=== PATIENT | female | born 1965 | race Caucasian/White ===

== ENCOUNTER 2017-05-19 01:48 | Inpatient (IN) ==
[2017-05-19] MEDS ORDERED: AMPICILLIN/SULBACTAM 3,000 MG in SODIUM CHLORIDE 0.9% 100 ML IV STA (02:07)
[2017-05-19] MEDS ORDERED: SODIUM CHLORIDE 0.9% 500 ML IV STA (02:07)
[2017-05-19] MEDS ORDERED: IBUPROFEN 600 MG TABLET PO STA (02:07)
--- NOTE | 2017-05-19 02:14 | Emergency Department Note ---
Claire Bella Mantricia, am scribing for, and in the presence of, Kip Auguste MD 02:12. Molina Bella Robert M, MD, personally performed the services described in this documentation, ascribed by Es Rangel in my presence, and it is both accurate and complete . Arrival - Arrival Chief Complaint: Syncope ED Nursing Triage Note: Patient stated that the fever started yesterday when she was here at [place] getting her blood drawn. Patient stated that she was weak and it never got better and when she stood up to come to the ER, she had a syncopy episode. Mode of Arrival: Stretcher Limitations: No Limitations Source: Patient, Significant other Time Seen by Provider: 05/19/17 01:58 - History of Present Illness HPI Narrative: Pt is a 52 y/o white female arriving to ED with c/o fever and syncopal episode that happened and hour NEWCOMER HOSTESS. 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 Pt was hospitalized a while ago and states that her white blood count was low when she was discharged. She reports that she had blood work drawn today here and noticed her fever after that. Pt states that her fever today was 99.4; an hour NEWCOMER HOSTESS pt states that her temperature was 100.5 so they decided to come to ED. While dressing herself and fixing her hair, pt had a 3-5 syncopal episode. reports that pt seemed like she was about to seize during syncope but never did. Pt's oncologist is Dr. Aleman. She reports that she had an episode similar to this 9 years ago. No other complaints were reported to ED. Onset (ago): day(s) Consistency: constant Date of Last Menstrual Period: PM Allergies/Adverse Reactions: Allergies Allergy/AdvReac Type Severity Reaction Status Date / Time No Known Allergies Allergy Verified 05/18/17 09:24 Review of System - Review of System 12 point system: reviewed and no additional remarkable complaints except as stated - Review of System Constitutional: Present: fever. Absent: chills, diaphoresis Cardiovascular: Present: syncope. Absent: chest pain, palpitations Gastrointestinal: Absent: abdominal pain, nausea, vomiting, diarrhea Genitourinary female: Absent: abnormal menses Medical,Surgical,& Family Hx - Medical History Neurology: No history of: Seizures Hematology: History of: Anemia Other: History of: Cancer - Surgical History Cardiac Surgeries: Patient Denies: Cardiac Catheterization - Social History Smoking Status: Never smoker Exam Vital Signs: Vital Signs Temperature 103.2 F H 05/19/17 01:55 Pulse Rate 123 H 05/19/17 01:55 Respiratory Rate 18 05/19/17 01:55 Blood Pressure 104/63 05/19/17 01:55 O2 Sat by Pulse Oximetry 100 05/19/17 01:55 - General General appearance: alert, in no apparent distress - Head Head exam: Present: atraumatic, normocephalic, normal inspection - Eye Eye exam: Present: normal appearance, PERRL, EOMI - ENT ENT exam: Present: normal exam, normal oropharynx, mucous membranes moist, TM's normal bilaterally, normal external ear exam - Neck Neck exam: Present: normal inspection, full ROM, trachea midline. Absent: tenderness - Chest Chest inspection: Present: normal inspection, symmetric chest wall rise. Absent : tenderness - Respiratory Respiratory exam: Present: normal lung sounds bilaterally - Cardiovascular Cardiovascular exam: Present: regular rate, normal rhythm, normal heart sounds - Abdominal Exam Abdominal exam: Present: soft, normal bowel sounds. Absent: distention, tenderness, guarding, rebound - Extremities Exam Extremities exam: Present: normal inspection, full ROM, normal capillary refill. Absent: tenderness, pedal edema - Back Exam Back exam: Present: normal inspection, full ROM. Absent: tenderness - Neurological Exam Neurological exam: Present: alert, oriented X3, CN II-XII intact, normal gait, reflexes normal - Psychiatric Psychiatric exam: Present: normal affect, normal mood - Skin Skin exam: Present: warm, dry, intact, normal color Course - Reevaluation(s) Reevaluation #1: I have planned to put patient on [address] Bass request, however the nursing supervisor waterworks informs me that she cannot go to 4 E. because of her hypotension and tachycardia which has been stable her entire stay. They can disposition the patient as they see fit. They are going to place her in the ICU because 4 weeks will accept the patient as she presents now despite stability. Time: 04:02 - Consultations Consultation #1: Dr. Bishnu Bass early intervention specialist and will admit the patient to Dr. Aleman. He requests irradiated blood and platelets. Time: 03:24 Results - Labs CBC & BMP: 05/19/17 02:05 05/19/17 02:05 Lab Results: I have reviewed the patients labs Labs: Lab Results WBC 0.1 T/CUMM (4-12) L* 05/19/17 02:05 RBC 1.49 MC/CUMM (3.8-5.5) L D 05/19/17 02:05 Hgb 4.7 GM/DL (12.0-16.0) L* D 05/19/17 02:05 Hct 14.1 VOL% (35.7-47.0) L* D 05/19/17 02:05 MCV 94.6 FL (87-102) 05/19/17 02:05 MCH 32 PG (27-34) 05/19/17 02:05 MCHC 33.3 GM/DL (32-36) 05/19/17 02:05 RDW 16.3 % (9.3-17.3) 05/19/17 02:05 Plt Count 10 T/CUMM (130-400) L* D 05/19/17 02:05 MPV 10.8 FL (9.6-12.0) 05/19/17 02:05 Neut % (Auto) 20.0 % (38.7-73.9) L 05/19/17 02:05 Lymph % (Auto) 80.0 % (21.3-54.2) H 05/19/17 02:05 [place] % (Auto) 0.0 % (1.7-12.7) L 05/19/17 02:05 Eos % (Auto) 0.0 % (0.00-10.9) 05/19/17 02:05 Baso % (Auto) 0.0 % (0.0-0.8) 05/19/17 02:05 Neut # (Auto) 0.0 10*3/uL (1.4-7.4) L 05/19/17 02:05 Lymph # (Auto) 0.0 10*3/uL (1.4-4.0) L 05/19/17 02:05 [place] # (Auto) 0.0 10*3/uL (0.11-0.8) L 05/19/17 02:05 Eos # (Auto) 0.0 10*3/uL (0.0-0.87) 05/19/17 02:05 Baso # (Auto) 0.0 10*3/uL (0.0-0.2) 05/19/17 02:05 Immature Gran % 0.0 % 05/19/17 02:05 Nucleated RBC % 0.0 /100WBC 05/19/17 02:05 Immature Gran # 0.00 # 05/19/17 02:05 Nucleated RBCs # 0.00 10*3/uL 05/19/17 02:05 INR 1.1 05/19/17 02:05 PT Patient/Control Mix 11.4 SECS 05/19/17 02:05 Sodium 137 MMOL/L (136-145) 05/19/17 02:05 Potassium 4.0 MMOL/L (3.5-5.1) 05/19/17 02:05 Chloride 101 MMOL/L (98-107) 05/19/17 02:05 Carbon Dioxide 24 MMOL/L (21-32) 05/19/17 02:05 Anion Gap 16.0 MMOL/L (5.0-15.0) H 05/19/17 02:05 BUN 22 MG/DL (7-18) H 05/19/17 02:05 Creatinine 1.80 MG/DL (0.55-1.02) H 05/19/17 02:05 GFR Calculation 31 ML/MIN 05/19/17 02:05 BUN/Creatinine Ratio 12.00 RATIO (6.00-20.00) 05/19/17 02:05 Glucose 130 MG/DL (74-106) H 05/19/17 02:05 Calculated Osmolality 277.8 MOS/KG (273-304) 05/19/17 02:05 Calcium 7.7 MG/DL (8.5-10.1) L 05/19/17 02:05 Total Bilirubin 0.50 MG/DL (0.2-1.0) 05/19/17 02:05 AST 15 U/L (0-37) 05/19/17 02:05 ALT 18 U/L (13-56) 05/19/17 02:05 Alkaline Phosphatase 89 U/L (45-117) 05/19/17 02:05 Lactate Dehydrogenase 160 U/L (84-246) 05/19/17 02:05 Total Protein 5.9 G/DL (6.4-8.3) L 05/19/17 02:05 Albumin 3.1 G/DL (3.4-5.0) L 05/19/17 02:05 Globulin 2.8 G/DL (2.3-3.5) 05/19/17 02:05 Albumin/Globulin Ratio 1.1 RATIO (1.1-2.2) 05/19/17 02:05 Amylase 60 U/L (25-115) 05/19/17 02:05 Lipase 84.0 U/L (73-393) 05/19/17 02:05 Urine Color Yellow (Yellow) 05/19/17 02:48 Urine Appearance Clear (Clear) 05/19/17 02:48 Urine pH 7.0 (4.5-8.0) 05/19/17 02:48 Ur Specific [place] 1.008 (1.001-1.035) 05/19/17 02:48 Urine Protein 30 MG/DL 05/19/17 02:48 Urine Glucose (UA) Negative mg/dL (Negative) 05/19/17 02:48 Urine Ketones Negative mg/dL (Negative) 05/19/17 02:48 Urine Blood Negative mg/dL (Negative) 05/19/17 02:48 Urine Nitrate Negative (Negative) 05/19/17 02:48 Urine Bilirubin Negative mg/dL (Negative) 05/19/17 02:48 Urine Urobilinogen < 2.0 EU/DL (0.2-1.0) H 05/19/17 02:48 Urine Leukocytes Negative Anmol/ul (Negative) 05/19/17 02:48 Urine RBC 3 /HPF (0-4) 05/19/17 02:48 Hyaline Casts 1 /LPF (0-3) 05/19/17 02:48 Ur Culture Indicated? Not indicated 05/19/17 02:48 - Diagnostic Findings Procedure: Chest x-ray: image reviewed by me (No evidence of pneumonia.) Disposition Clinical Impression: Symptomatic anemia, Acute lymphocytic leukemia, Thrombocytopenia, Febrile neutropenia, Vasovagal syncope Case discussed with: patient, patient's family Disposition: Still a Patient Time of Disposition: 03:25
[2017-05-19] MEDS ORDERED: AMPICILLIN/SULBACTAM 3,000 MG VIAL ONE (02:27)
[2017-05-19 02:36] LABS: Mean Corpuscular HGB Conc 33.3 GM/DL (32-36); Mean Corpuscular Hemoglobin 32 PG (27-34); Mean Corpuscular Volume 94.6 FL (87-102); Mean Platelet Volume 10.8 FL (9.6-12.0); Red Blood Count 1.49 MC/CUMM (3.8-5.5); Red Cell Distribution Width 16.3 % (9.3-17.3)
[2017-05-19 02:41] LABS: Hematocrit 14.1 VOL% (35.7-47.0); Hemoglobin 4.7 GM/DL (12.0-16.0); Platelet Count 10 T/CUMM (130-400); White Blood Count 0.1 T/CUMM (4-12)
[2017-05-19] MEDS ORDERED: IBUPROFEN 600 MG TABLET ONE (02:41)
[2017-05-19 02:43] LABS: INR 1.1; PT Patient Result 11.4 SECS
[2017-05-19 03:08] LABS: Albumin 3.1 G/DL (3.4-5.0); Bilirubin,Total 0.5 MG/DL (0.2-1.0); Calcium 7.7 MG/DL (8.5-10.1); Osmolality,Calculated 277.8 MOS/KG (273-304); Total Protein 5.9 G/DL (6.4-8.3)
[2017-05-19 03:09] LABS: Apearance,Urine CLEAR (Clear); Bilirubin,Urine Negative (Negative); Blood, Urine Negative (Negative); Glucose,Urine (UA) Negative (Negative); Hyaline Casts,Urine 1 /LPF (0-3); Ketones,Urine Negative (Negative); Nitrite,Urine Negative (Negative); Protein,Urine 30 MG/DL; RBC,Urine 3 /HPF (0-4); Urine Color Yellow (Yellow); Urine Specific Gravity 1.008 (1.001-1.035); Urine Urobilinogen < 2.0 EU/DL (0.2-1.0)
[2017-05-19] MEDS ORDERED: SODIUM CHLORIDE 0.9% 250 ML IV PRN ×2 (03:17→03:19)
[2017-05-19] MEDS ORDERED: LACTULOSE 20 GM/30 ML UDCUP PO PRN (03:30)
[2017-05-19] MEDS ORDERED: traMADol 50 MG TABLET PO PRN (03:30)
[2017-05-19] MEDS ORDERED: LOPERAMIDE 2 MG CAPSULE PO PRN (03:30)
[2017-05-19] MEDS ORDERED: BENZTROPINE 2 MG/2 ML AMP IV PRN (03:30)
[2017-05-19] MEDS ORDERED: ONDANSETRON 4 MG/2 ML VIAL IV PRN (03:30)
[2017-05-19] MEDS ORDERED: ALUMINUM/MAGNES/SIMETH MAX STR 30 ML UDCUP PO PRN (03:30)
[2017-05-19] MEDS ORDERED: chlorproMAZINE 25 MG TABLET PO PRN (03:30)
[2017-05-19] MEDS ORDERED: ALPRAZolam 0.25 MG TABLET PO PRN (03:30)
[2017-05-19] MEDS ORDERED: chlorproMAZINE INJ 25 MG in SODIUM CHLORIDE 0.9% 100 ML IV PRN (03:30)
[2017-05-19] MEDS ORDERED: MAGNESIUM HYDROXIDE SUSP 30 ML UDCUP PO PRN (03:30)
[2017-05-19] MEDS ORDERED: MYLANTA/LIDO VISC 2:1 300 ML BOTTLE SWISH/SPIT PRN (03:30)
[2017-05-19] MEDS ORDERED: TEMAZEPAM 7.5 MG CAPSULE PO PRN (03:30)
[2017-05-19] MEDS ORDERED: MYLANTA/LIDO VISC 2:1 300 ML BOTTLE SWISH/SWAL PRN (03:30)
[2017-05-19] MEDS ORDERED: chlorproMAZINE INJ 50 MG in SODIUM CHLORIDE 0.9% 100 ML IV PRN (03:30)
[2017-05-19] MEDS ORDERED: diphenhydrAMINE CAP 25 MG CAPSULE PO PRN (03:30)
[2017-05-19] MEDS ORDERED: PROMETHAZINE INJ 25 MG in SODIUM CHLORIDE 0.9% 50 ML IV PRN (03:30)
[2017-05-19] MEDS ORDERED: guaiFENesin 200 MG/10 ML UDCUP PO PRN (03:30)
[2017-05-19 05:20] LABS: Eosinophils 4 % (0-10); Lymphocytes 92 % (20-55)
[2017-05-19 05:22] LABS: Anisocytosis 1+; Microcytosis 1+; Platelet Estimate Decreased; Total Cells Counted 100
[2017-05-19] MEDS: ACETAMINOPHEN 325 MG TABLET PO PRN (06:37)
[2017-05-19] MEDS ORDERED: SODIUM CHLORIDE 0.9% 1,000 ML IV ONE (06:59)
[2017-05-19] MEDS ORDERED: VANCOMYCIN INJ 1,000 MG in SODIUM CHLORIDE 0.9% 250 ML IV ONE (07:02)
--- NOTE | 2017-05-19 07:03 | XRay Report ---
History is fever Comparison 02/20/2011. The cardiac silhouette is at the upper range of normal in size PICC line catheter tip overlies the right atrium No congestive failure or confluent infiltrate is seen Impression: Borderline heart size without acute infiltrate PROCEDURE INTERPRETED AT [facility] DEPARTMENT OF RADIOLOGY Final Report Signed by: Dr. Camelia Terry
--- NOTE | 2017-05-19 07:07 | Oncology History&Physical ---
Assessment and Plan (1) Acute lymphocytic leukemia Status: Acute Assessment and plan: We will give 3 units of irradiated red cells and 1 unit of radiated platelets. I am currently bolusing her fluid at this time while we are waiting for the blood cells. We will then continue IV fluid rehydration. I will give her a dose of vancomycin and place her on IV Levaquin. Will follow up her blood cultures. I will also put her on daily Neupogen since this is a LL and I am not fearful of stimulating myeloblasts. I will notify Dr. Brady of her admission if Dr. Brady is occupational therapy supervisor today for [facility]. Otherwise I will wait till tomorrow when she is back at work. Current Visit: Yes (2) Symptomatic anemia Status: Acute Current Visit: Yes (3) Thrombocytopenia Status: Acute Current Visit: Yes (4) Febrile neutropenia Status: Acute Current Visit: Yes (5) Vasovagal syncope Status: Acute Current Visit: Yes History of Present Illness History of present illness: Ms. 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 She presented to the ER last night with fevers and pancytopenia. She also complains of 2-3 episodes of near syncope. Blood cultures were drawn. She was bolused 1 L of normal saline and given a dose of Unasyn. She overall appears nontoxic but she is hypotensive and tachycardic. She states her blood pressure runs low every time she is in the hospital. She is in the ICU for close observation. I would prefer her on 4 E. but will keep her here for now while she is hypotensive. She has no specific complaints this morning other than headache. She does have fatigue that has been present for the past few days since receiving chemotherapy. She is unsure what type of chemotherapy she received. We are using irradiated blood products. Allergies Allergy/AdvReac Type Severity Reaction Status Date / Time No Known Allergies Allergy Verified 05/18/17 09:24 Medical,Surgical,& Family Hx - Medical History Neurology: No history of: Seizures Hematology: History of: Anemia Other: History of: Cancer - Surgical History Cardiac Surgeries: Patient Denies: Cardiac Catheterization - Social History Smoking Status: Never smoker Frequency of Alcohol Use: None Type of Drug Use: None 12 point system: reviewed and no additional remarkable complaints except as stated - Constitutional Constitutional: Present: chills, fatigue, fever(s), malaise, night sweats, weakness - EENT Eye: Absent: blurry vision, diplopia Nose, mouth and throat: Absent: epistaxis, neck pain, odynophagia, sore throat - Cardiovascular Cardiovascular ROS IM: Absent: chest pain, edema - Respiratory Respiratory: Present: dyspnea. Absent: cough, hemoptysis - Neurological Neurological ROS: Present: headache(s). Absent: syncope - Psychiatric Psychiatric General: Absent: anxiety Exam - Constitutional Vitals: Period Temp Pulse Resp BP Sys/R[place]man Pulse Ox Last 24 Hr 100.1 F-103.2 F 103-128 18-29 89-105/46-63 98-100 General appearance: normal weight, no acute distress - Head Head Exam: Present: normocephalic, atraumatic - Eye Eye Exam: Present: EOMI Pupils: Present: PERRL - Neck Neck exam: Absent: lymphadenopathy, thyromegaly - Respiratory Respiratory exam: Present: CTAB. Absent: wheezes - Cardiovascular Cardiovascular exam: Present: RRR. Absent: JVD, systolic murmur - GI/Abdominal GI/Abdominal exam: Present: soft. Absent: ascites, distended, mass - Neurological Exam Neurological exam: Present: alert, oriented X3 - Psychiatric Psychiatric exam: Present: normal affect, normal mood - Skin Skin exam: Present: warm, dry. Absent: petechiae, rash Results - Labs CBC & BMP: 05/19/17 02:05 05/19/17 02:05 Lab Results: I have reviewed the past 24 hour labs
[2017-05-19] MEDS: SODIUM CHLORIDE 0.9% 1,000 ML IV SCH ×2 (08:00→20:18)
[2017-05-19] MEDS: LEVOFLOXACIN INJ 500 MG in PREMIX 1 EACH IV SCH (09:34)
[2017-05-19] MEDS: FILGRASTIM-SNDZ 300 MCG/0.5 ML SYRINGE SUBCUT SCH (09:35)
[2017-05-19] MEDS: cefTRIAXone 1,000 MG in SODIUM CHLORIDE 0.9% 100 ML IV SCH (16:35)
[2017-05-20 05:47] LABS: Basophils % 11.1 % (0.0-0.8); Hematocrit 25.1 VOL% (35.7-47.0); Hemoglobin 8.7 GM/DL (12.0-16.0); Immature Granulocytes % 33.3 %; Immature Granulocytes Absolute 0.03 #; Lymphocytes % 33.3 % (21.3-54.2); Mean Corpuscular HGB Conc 34.7 GM/DL (32-36); Mean Corpuscular Hemoglobin 31 PG (27-34); Mean Platelet Volume 9.9 FL (9.6-12.0); Monocytes % 11.1 % (1.7-12.7); Neutrophils % 11.2 % (38.7-73.9); Red Blood Count 2.79 MC/CUMM (3.8-5.5); Red Cell Distribution Width 17.5 % (9.3-17.3)
[2017-05-20 05:49] LABS: Platelet Count 25 T/CUMM (130-400); White Blood Count 0.1 T/CUMM (4-12)
[2017-05-20 06:10] LABS: Albumin 2.5 G/DL (3.4-5.0); Bilirubin,Total 0.4 MG/DL (0.2-1.0); Magnesium 1.6 MG/DL (1.8-2.4); Osmolality,Calculated 291.7 MOS/KG (273-304); Potassium 3.5 MMOL/L (3.5-5.1); Total Protein 5.3 G/DL (6.4-8.3)
[2017-05-20 06:13] LABS: Hypochromasia Slight; Lymphocytes 100 % (20-55); Microcytosis 1+; Platelet Estimate Decreased; Total Cells Counted 100
[2017-05-20] MEDS: SODIUM CHLORIDE 0.9% 1,000 ML IV SCH (06:18)
--- NOTE | 2017-05-20 08:22 | Physician Query Form ---
CLICK EDIT DOCUMENT TO SELECT QUERY ANSWER --> OK --> SIGN Jada Auguste RN, CCDS Certified Clinical Work Car Operator W) [phone] (f) [phone] [email or web address] PROVIDERS: Make your selection(s) from the choices in EACH section by typing an "x" and enter comments in the comment section. Please use your independent medical judgment in providing your response. This request does not imply that any particular answer is desired or expected. CLINICAL INDICATORS: (Providers should not edit this section) The medical record indicates that the patient was admitted with Febrile neutropenia, Pancytopenia, and the patient has a relapse " [place] positive ALL who received chemotherapy at [facility] from May 07 - May 11." -------WBC 0.1, RBC 1.49#, Hgb 4.7, Hct 14.1, Plt 10 patient is receiving blood. Based on the above, could you clarify the appropriate diagnosis, if significant , that supports the above abnormalities and additional evaluation, monitoring, and/or treatment rendered: ( x) pancytopenia is chemotherapy induced pancytopenia ( x) pancytopenia is due to ____cancer ( ) Other, please specify: ( ) Clinically unable to determine COMMENTS: PLEASE ALSO DOCUMENT RESPONSE IN PROGRESS NOTES AND/OR DISCHARGE SUMMARY Use of terms such as suspected, likely, or probable (associated with a specific diagnosis that is being evaluated, monitored, or treated as if it exists) are acceptable and can be restated in the discharge summary if not ruled out. MTDD
[2017-05-20] MEDS: LEVOFLOXACIN INJ 500 MG in PREMIX 1 EACH IV SCH (08:33)
[2017-05-20] MEDS: FILGRASTIM-SNDZ 300 MCG/0.5 ML SYRINGE SUBCUT SCH (08:33)
--- NOTE | 2017-05-20 08:43 | Oncology Progress Note ---
Oncology Subjective PN Interval history: Patient with [place] positive ANLL with new relapse from 2007 original diagnosis. Her vitals are acceptable this morning with actually some degree of hypertension. She will not require blood or platelet transfusions today. She remains neutropenic Neupogen administration on the active medication list. She was still febrile this morning I am going to add a second antibiotic with meropenem 1000 mg IV every 12 hours. Her is at bedside. She is having diarrhea and C. difficile is negative. She has mild diffuse abdominal tenderness without guarding or rebound. Bowel sounds are normoactive. Her breath sounds are clear to bilateral posterior auscultation. No wheezes or crackles. No peripheral edema and patient denies any rashes or ulcerations. Continue aggressive antimicrobial administration and blood product support. Exam - Constitutional Vitals: Period Temp Pulse Resp BP Sys/R[place]man Pulse Ox Last 24 Hr 97 F-100.1 F 82-119 16-26 70-169/42-89 92-100 Results - Labs CBC & BMP: 05/20/17 04:30 05/20/17 04:30
[2017-05-20] MEDS ORDERED: ONDANSETRON 4 MG TABLET PO PRN (09:10)
[2017-05-20] MEDS ORDERED: MAGNESIUM SULF RIDER 4 GM in PREMIX 1 EACH IV ONE (09:30)
[2017-05-20] MEDS: CALCIUM (CARBONATE)/VITAMIN D 600 MG-400 UNIT TABLET PO SCH (09:37)
[2017-05-20] MEDS: ASCORBIC ACID 500 MG TABLET PO SCH ×2 (09:38→20:53)
[2017-05-20] MEDS: ACYCLOVIR 200 MG CAPSULE PO SCH ×3 (09:38→20:53)
[2017-05-20] MEDS: MEROPENEM 1,000 MG in SODIUM CHLORIDE 0.9% 100 ML IV SCH ×2 (09:39→20:53)
[2017-05-20] MEDS: ACETAMINOPHEN 325 MG TABLET PO PRN (16:14)
[2017-05-20] MEDS ORDERED: HEPARIN LOCK FLUSH 500 UNIT/5 ML SYRINGE IV ONE (16:56)
[2017-05-20] MEDS: cefTRIAXone 1,000 MG in SODIUM CHLORIDE 0.9% 100 ML IV SCH (17:03)
[2017-05-20] MEDS ORDERED: VANCOMYCIN INJ 1,000 MG in SODIUM CHLORIDE 0.9% 250 ML IV SCH (18:00)
[2017-05-20] MEDS: FLUCONAZOLE 200 MG TABLET PO SCH (20:53)
[2017-05-20] MEDS: LOPERAMIDE 2 MG CAPSULE PO PRN (21:03)
[2017-05-21] MEDS: SODIUM CHLORIDE 0.9% 1,000 ML IV SCH ×3 (00:41→15:07)
[2017-05-21] MEDS: LOPERAMIDE 2 MG CAPSULE PO PRN ×2 (00:42→10:13)
[2017-05-21] MEDS: ACETAMINOPHEN 325 MG TABLET PO PRN ×2 (05:47→17:46)
[2017-05-21 06:13] LABS: Hematocrit 23.9 VOL% (35.7-47.0); Hemoglobin 8.4 GM/DL (12.0-16.0); Mean Corpuscular HGB Conc 35.1 GM/DL (32-36); Mean Corpuscular Hemoglobin 31 PG (27-34); Mean Corpuscular Volume 89.2 FL (87-102); Mean Platelet Volume 11.9 FL (9.6-12.0); Platelet Count 16 T/CUMM (130-400); Red Blood Count 2.68 MC/CUMM (3.8-5.5); Red Cell Distribution Width 17.6 % (9.3-17.3)
[2017-05-21 06:41] LABS: Hypochromasia 2+; Microcytosis 2+
[2017-05-21 06:42] LABS: Albumin 2.2 G/DL (3.4-5.0); Bilirubin,Total 0.5 MG/DL (0.2-1.0); Calcium 7.6 MG/DL (8.5-10.1); Osmolality,Calculated 288.7 MOS/KG (273-304); Potassium 2.7 MMOL/L (3.5-5.1); Total Protein 5.2 G/DL (6.4-8.3)
[2017-05-21] MEDS: LEVOFLOXACIN INJ 500 MG in PREMIX 1 EACH IV SCH (07:24)
[2017-05-21] MEDS ORDERED: SODIUM CHLORIDE 0.9% 250 ML IV PRN (08:22)
--- NOTE | 2017-05-21 08:31 | Oncology Progress Note ---
Oncology Subjective PN Interval history: Hospital day 4 for patient with [place] positive ANLL status post recent remission with induction performed at [facility]. The patient received 5 days of multiagent chemotherapy. She remains pancytopenic with a white blood cell count of 0. She is still having fever and is on at least 5 anti-microbial agents at this time. We are going to transfuse platelets as they are 16,000 and she has had some epistaxis. Her abdominal pain seems to be slightly improved as to her renal and other metabolic parameters with the exception of hypokalemia which will be repleted. Bowel sounds appear normoactive with no guarding or rebound. Urine output is brisk and we will begin to decrease her IV fluids. Her is at bedside and she was pleasant and cooperative during my examination Exam - Constitutional Vitals: Period Temp Pulse Resp BP Sys/R[place]man Pulse Ox Last 24 Hr 98.6 F-102.5 F 104-126 20-24 117-169/62-89 91-96 Results - Labs CBC & BMP: 05/21/17 05:50 05/21/17 05:50
[2017-05-21] MEDS: ASCORBIC ACID 500 MG TABLET PO SCH ×2 (08:58→21:00)
[2017-05-21] MEDS: PANTOPRAZOLE 40 MG TABLET PO SCH (08:59)
[2017-05-21] MEDS: MULTIVITAMIN (CENTRUM) TABLET PO SCH (09:00)
[2017-05-21] MEDS: CALCIUM (CARBONATE)/VITAMIN D 600 MG-400 UNIT TABLET PO SCH (09:00)
[2017-05-21] MEDS ORDERED: NON-FORMULARY MEDICATION (Biotin [Biotin] 10,000 MCG) PO SCH (09:00)
[2017-05-21] MEDS: CYANOCOBALAMIN 500 MCG TABLET PO SCH (09:01)
[2017-05-21] MEDS: MEROPENEM 1,000 MG in SODIUM CHLORIDE 0.9% 100 ML IV SCH ×2 (09:10→21:04)
[2017-05-21] MEDS: FILGRASTIM-SNDZ 300 MCG/0.5 ML SYRINGE SUBCUT SCH (09:10)
[2017-05-21] MEDS: POTASSIUM CHLORIDE RIDER 20 MEQ in PREMIX 1 EACH IV SCH ×3 (09:11→13:03)
[2017-05-21] MEDS: FLUTICASONE 50 MCG NASAL SPRAY 16 GM BOTTLE BOTH NARES SCH (09:13)
[2017-05-21] MEDS: ACYCLOVIR 200 MG CAPSULE PO SCH ×3 (10:04→21:02)
[2017-05-21] MEDS: FLUCONAZOLE 200 MG TABLET PO SCH ×2 (10:05→21:00)
[2017-05-21] MEDS: cefTRIAXone 1,000 MG in SODIUM CHLORIDE 0.9% 100 ML IV SCH (16:55)
[2017-05-21] MEDS ORDERED: ALTEPLASE 2 MG VIAL INTRACATH ONE (18:00)
[2017-05-22 05:21] LABS: Hematocrit 22.7 VOL% (35.7-47.0); Hemoglobin 7.9 GM/DL (12.0-16.0); Mean Corpuscular HGB Conc 34.8 GM/DL (32-36); Mean Corpuscular Hemoglobin 31 PG (27-34); Mean Corpuscular Volume 88.7 FL (87-102); Mean Platelet Volume 10.9 FL (9.6-12.0); Red Blood Count 2.56 MC/CUMM (3.8-5.5); Red Cell Distribution Width 17.8 % (9.3-17.3)
[2017-05-22] MEDS: SODIUM CHLORIDE 0.9% 1,000 ML IV SCH ×2 (05:29→19:39)
[2017-05-22 05:44] LABS: Platelet Count 47 T/CUMM (130-400); White Blood Count 0.1 T/CUMM (4-12)
[2017-05-22 05:53] LABS: Albumin 2.1 G/DL (3.4-5.0); Bilirubin,Total 0.9 MG/DL (0.2-1.0); Potassium 2.9 MMOL/L (3.5-5.1); Total Protein 4.9 G/DL (6.4-8.3)
[2017-05-22 06:04] LABS: Lymphocytes 100 % (20-55); Platelet Estimate Decreased; Total Cells Counted 100
[2017-05-22] MEDS: ACYCLOVIR 200 MG CAPSULE PO SCH ×3 (08:50→20:20)
[2017-05-22] MEDS: FLUTICASONE 50 MCG NASAL SPRAY 16 GM BOTTLE BOTH NARES SCH (08:53)
[2017-05-22] MEDS: CALCIUM (CARBONATE)/VITAMIN D 600 MG-400 UNIT TABLET PO SCH (08:53)
[2017-05-22] MEDS: MULTIVITAMIN (CENTRUM) TABLET PO SCH (08:53)
[2017-05-22] MEDS: PANTOPRAZOLE 40 MG TABLET PO SCH (08:53)
[2017-05-22] MEDS: CYANOCOBALAMIN 500 MCG TABLET PO SCH (08:53)
[2017-05-22] MEDS: FLUCONAZOLE 200 MG TABLET PO SCH ×2 (08:53→20:20)
[2017-05-22] MEDS: MEROPENEM 1,000 MG in SODIUM CHLORIDE 0.9% 100 ML IV SCH ×2 (08:55→20:19)
[2017-05-22] MEDS: FILGRASTIM-SNDZ 300 MCG/0.5 ML SYRINGE SUBCUT SCH (08:55)
[2017-05-22] MEDS: ASCORBIC ACID 500 MG TABLET PO SCH ×2 (08:55→20:19)
[2017-05-22] MEDS ORDERED: SODIUM CHLORIDE 0.9% 250 ML IV PRN (10:19)
--- NOTE | 2017-05-22 10:39 | Oncology Progress Note ---
Oncology Subjective PN Interval history: Still with some fever overnight. She actually feels better today. I have encouraged ambulation. She is nontoxic. She is breathing comfortable on room air. Her lungs are clear bilaterally. Her is at bedside. Her abdomen is nontender. She has had 3-4 loose bowel movements over the last 24 hours. Labs are notable for potassium 2.9 with supplementation ordered. I will give 1 unit of irradiated red blood cells today. She had an excellent increment with yesterday's platelet transfusion. Continuing on Neupogen and antibiotics. Blood cultures have returned as E. coli with sensitivities reviewed. Exam - Constitutional Vitals: Period Temp Pulse Resp BP Sys/Rothman Pulse Ox Last 24 Hr 97.7 F-102.1 F 101-127 16-22 118-146/69-92 90-96 Results - Labs CBC & BMP: 05/22/17 04:41 05/22/17 04:41
[2017-05-22] MEDS: POTASSIUM CHLORIDE RIDER 20 MEQ in PREMIX 1 EACH IV SCH ×3 (12:03→17:23)
[2017-05-22] MEDS ORDERED: HEPARIN LOCK FLUSH 500 UNIT/5 ML SYRINGE IV ONE (16:22)
[2017-05-22] MEDS: HEPARIN LOCK FLUSH 500 UNIT/5 ML SYRINGE IV PRN (17:24)
[2017-05-22] MEDS: cefTRIAXone 1,000 MG in SODIUM CHLORIDE 0.9% 100 ML IV SCH (19:39)
[2017-05-23 04:25] LABS: Hemoglobin 9.1 GM/DL (12.0-16.0); Lymphocytes # 0.1 10*3/uL (1.4-4.0); Lymphocytes % 83.3 % (21.3-54.2); Mean Corpuscular Hemoglobin 31 PG (27-34); Mean Corpuscular Volume 87.2 FL (87-102); Mean Platelet Volume 9.8 FL (9.6-12.0); Monocytes % 16.7 % (1.7-12.7); Red Blood Count 2.98 MC/CUMM (3.8-5.5); Red Cell Distribution Width 16.7 % (9.3-17.3)
[2017-05-23 04:27] LABS: Platelet Count 28 T/CUMM (130-400); White Blood Count 0.1 T/CUMM (4-12)
[2017-05-23 05:03] LABS: Albumin 2.1 G/DL (3.4-5.0); Calcium 7.9 MG/DL (8.5-10.1); Osmolality,Calculated 286.1 MOS/KG (273-304); Total Protein 4.9 G/DL (6.4-8.3)
[2017-05-23 05:13] LABS: Lymphocytes 100 % (20-55); Total Cells Counted 100
[2017-05-23 05:14] LABS: Anisocytosis 1+; Platelet Estimate Decreased
[2017-05-23] MEDS: PANTOPRAZOLE 40 MG TABLET PO SCH (09:56)
[2017-05-23] MEDS: ACYCLOVIR 200 MG CAPSULE PO SCH ×3 (09:56→21:03)
[2017-05-23] MEDS: FLUCONAZOLE 200 MG TABLET PO SCH ×2 (09:56→21:03)
[2017-05-23] MEDS: FLUTICASONE 50 MCG NASAL SPRAY 16 GM BOTTLE BOTH NARES SCH (09:57)
[2017-05-23] MEDS: CYANOCOBALAMIN 500 MCG TABLET PO SCH (09:57)
[2017-05-23] MEDS: MEROPENEM 1,000 MG in SODIUM CHLORIDE 0.9% 100 ML IV SCH ×2 (09:57→20:17)
[2017-05-23] MEDS: MULTIVITAMIN (CENTRUM) TABLET PO SCH (09:57)
[2017-05-23] MEDS: CALCIUM (CARBONATE)/VITAMIN D 600 MG-400 UNIT TABLET PO SCH (09:57)
[2017-05-23] MEDS: FILGRASTIM-SNDZ 300 MCG/0.5 ML SYRINGE SUBCUT SCH (10:05)
[2017-05-23] MEDS: ASCORBIC ACID 500 MG TABLET PO SCH ×2 (10:07→21:03)
--- NOTE | 2017-05-23 11:08 | Oncology Progress Note ---
Oncology Subjective PN Interval history: Ms. 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 She presented to the ER with fever and pancytopenia. She also complained of 2-3 episodes of near syncope. Blood cultures were drawn. She was bolused 1 L of normal saline and given a dose of Unasyn. She overall appeared nontoxic but she was hypotensive and tachycardic. She was initially placed in the ICU for close observation and subsequently moved to oncology. She does have fatigue that has been present for the past few days since receiving chemotherapy. She is unsure what type of chemotherapy she received. We are using irradiated blood products. Today she is feeling better generally. In fact, she looks surprisingly healthy to have her current blood counts. Acute lymphocytic leukemia Currently between chemotherapy treatments but were not sure of exactly which medications. 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 diarrhea Clostridium difficile negative. She only had one loose stool last night. E. coli neutropenic septicemia White cell count 100 today with an ANC of 0. Temperature 99. this morning. Pulse 119. Blood pressure 142/92.She is currently on Merrem and Rocephin. thrombocytopenia Platelet count 28,000 and dropping anemia Hemoglobin 9.1. We will transfuse irradiated red cells as needed. hypokalemia Serum potassium 3.0 today, which is a modest improvement. Exam - Constitutional Vitals: Period Temp Pulse Resp BP Sys/Rothman Pulse Ox Last 24 Hr 98.7 F-100.4 F 109-125 18-20 117-144/72-88 91-96 Results - Labs CBC & BMP: 05/23/17 04:00 05/23/17 04:00
[2017-05-23] MEDS: ACETAMINOPHEN 325 MG TABLET PO PRN (16:03)
[2017-05-23] MEDS: SODIUM CHLORIDE 0.9% 1,000 ML IV SCH (16:06)
[2017-05-23] MEDS: cefTRIAXone 1,000 MG in SODIUM CHLORIDE 0.9% 100 ML IV SCH (21:01)
[2017-05-24 05:17] LABS: Hematocrit 24.9 VOL% (35.7-47.0); Hemoglobin 8.9 GM/DL (12.0-16.0); Immature Granulocytes % 11.1 %; Immature Granulocytes Absolute 0.01 #; Lymphocytes # 0.1 10*3/uL (1.4-4.0); Lymphocytes % 66.7 % (21.3-54.2); Mean Corpuscular HGB Conc 35.7 GM/DL (32-36); Mean Corpuscular Hemoglobin 31 PG (27-34); Mean Corpuscular Volume 86.5 FL (87-102); Mean Platelet Volume 10.3 FL (9.6-12.0); Neutrophils % 22.2 % (38.7-73.9); Red Blood Count 2.88 MC/CUMM (3.8-5.5); Red Cell Distribution Width 16.8 % (9.3-17.3)
[2017-05-24 05:25] LABS: Platelet Count 16 T/CUMM (130-400); White Blood Count 0.1 T/CUMM (4-12)
[2017-05-24 08:05] LABS: Hypochromasia 2+; Lymphocytes 60 % (20-55); Microcytosis 2+; Platelet Estimate Decreased; Segmented Neutrophils 40 % (50-85); Total Cells Counted 100
[2017-05-24] MEDS: CYANOCOBALAMIN 500 MCG TABLET PO SCH (09:30)
[2017-05-24] MEDS: PANTOPRAZOLE 40 MG TABLET PO SCH (09:30)
[2017-05-24] MEDS: FLUCONAZOLE 200 MG TABLET PO SCH ×2 (09:30→20:48)
[2017-05-24] MEDS: ACYCLOVIR 200 MG CAPSULE PO SCH ×3 (09:30→20:48)
[2017-05-24] MEDS: FLUTICASONE 50 MCG NASAL SPRAY 16 GM BOTTLE BOTH NARES SCH (09:31)
[2017-05-24] MEDS: MEROPENEM 1,000 MG in SODIUM CHLORIDE 0.9% 100 ML IV SCH ×2 (09:31→20:49)
[2017-05-24] MEDS: MULTIVITAMIN (CENTRUM) TABLET PO SCH (09:31)
[2017-05-24] MEDS: FILGRASTIM-SNDZ 300 MCG/0.5 ML SYRINGE SUBCUT SCH (09:31)
[2017-05-24] MEDS: CALCIUM (CARBONATE)/VITAMIN D 600 MG-400 UNIT TABLET PO SCH (09:31)
[2017-05-24] MEDS: ASCORBIC ACID 500 MG TABLET PO SCH ×2 (09:39→20:50)
--- NOTE | 2017-05-24 10:29 | Oncology Progress Note ---
Oncology Subjective PN Interval history: Acute lymphocytic leukemia Currently between chemotherapy treatments but were not sure of exactly which medications. 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 She generally does not feel bad. She has very few complaints. I do note that she has acrocyanosis and perioral cyanosis. The tip of her nose is cyanotic as well. She is oriented and alert and does not appear to be in any acute distress. Her respirations are unlabored. Her oral mucosa is normal. Cranial nerves II through XII are intact and she has no focal neurologic deficits. She is really in no significant discomfort. diarrhea Clostridium difficile negative. She only had no further diarrhea. E. coli neutropenic septicemia White cell count 100 today with an ANC of 0. Temperature 99. this morning. Pulse 119. Blood pressure 142/92.She is currently on Merrem and Rocephin. thrombocytopenia Platelet count 16,000 and dropping. We will transfuse platelets today. anemia Hemoglobin 8.9. We will transfuse irradiated red cells as needed. hypokalemia Serum potassium 3.1 today, which is a modest improvement. She is on IV fluids with additives of potassium chloride. acrocyanosis: Her nose is blue and the tips of her fingers are blue she also has blood around her mouth. I am checking cryoglobulins. chronic renal failure: Serum creatinine 1.2 today, down from 1.4 yesterday. Exam - Constitutional Vitals: Period Temp Pulse Resp BP Sys/R[place]man Pulse Ox Last 24 Hr 98.1 F-102.7 F 100-119 18-22 112-142/73-92 93-98 Results - Labs CBC & BMP: 05/24/17 04:30 05/24/17 09:00
[2017-05-24 11:04] LABS: Albumin 1.9 G/DL (3.4-5.0); Bilirubin,Total 1.1 MG/DL (0.2-1.0); Calcium 7.8 MG/DL (8.5-10.1); Osmolality,Calculated 284.3 MOS/KG (273-304); Potassium 3.1 MMOL/L (3.5-5.1); Total Protein 4.9 G/DL (6.4-8.3)
[2017-05-24] MEDS ORDERED: SODIUM CHLORIDE 0.9% 250 ML IV PRN (11:29)
[2017-05-24] MEDS: SODIUM CHLORIDE 0.9% 1,000 ML IV SCH (15:52)
[2017-05-24] MEDS: HEPARIN LOCK FLUSH 500 UNIT/5 ML SYRINGE IV PRN (17:11)
[2017-05-24] MEDS: ACETAMINOPHEN 325 MG TABLET PO PRN (20:48)
[2017-05-24] MEDS: cefTRIAXone 1,000 MG in SODIUM CHLORIDE 0.9% 100 ML IV SCH (22:04)
[2017-05-25 05:50] LABS: Hemoglobin 8.8 GM/DL (12.0-16.0); Lymphocytes # 0.1 10*3/uL (1.4-4.0); Lymphocytes % 42.9 % (21.3-54.2); Mean Corpuscular HGB Conc 35.2 GM/DL (32-36); Mean Corpuscular Hemoglobin 31 PG (27-34); Mean Platelet Volume 11.7 FL (9.6-12.0); Neutrophils # 0.1 10*3/uL (1.4-7.4); Neutrophils % 57.1 % (38.7-73.9); Platelet Count 58 T/CUMM (130-400); Red Blood Count 2.84 MC/CUMM (3.8-5.5); Red Cell Distribution Width 16.8 % (9.3-17.3)
[2017-05-25 05:53] LABS: White Blood Count 0.1 T/CUMM (4-12)
[2017-05-25 07:19] LABS: Hypochromasia 1+; Lymphocytes 60 % (20-55); Microcytosis 1+; Platelet Estimate Decreased; Segmented Neutrophils 40 % (50-85); Total Cells Counted 100
--- NOTE | 2017-05-25 08:42 | Oncology Progress Note ---
Oncology Subjective PN Interval history: Patient still with daily fever. Remains neutropenic. Receive platelets yesterday 48 hours from Fridays infusion. She is nontoxic. She has ambulated some on a daily basis. Her remains at bedside. Her lungs are clear bilaterally. She denies diarrhea or abdominal pain. No leg edema is noted. We will continue potassium supplementation. Repeating blood cultures today via PICC line. Exam - Constitutional Vitals: Period Temp Pulse Resp BP Sys/Rothman Pulse Ox Last 24 Hr 97.4 F-102.1 F 13-126 18-22 101-131/60-81 92-98 Results - Labs CBC & BMP: 05/25/17 04:21 05/24/17 09:00
--- NOTE | 2017-05-25 09:55 | XRay Report ---
Exam: XR chest 1V portable Date: 05/25/2017 8:39 AM Indication: Fever Comparison: 05/19/2017 Technical: AP portable Findings: Left-sided PICC line is present in the distal tip is in the superior vena cava to right atrial junction. Mild cardiomegaly. Patchy interstitial densities in the right base. No obvious effusions or consolidations otherwise noted. Peribronchial Cuffing is present. Impression: 1. Cardiomegaly with stable position of the PICC line. 2. Patchy interstitial infiltrate in the right infrahilar base region PROCEDURE INTERPRETED AT [facility] DEPARTMENT OF RADIOLOGY Final Report Signed by: Dr. Conrad Torres
[2017-05-25] MEDS: ASCORBIC ACID 500 MG TABLET PO SCH ×2 (10:18→20:24)
[2017-05-25] MEDS: FLUCONAZOLE 200 MG TABLET PO SCH ×2 (10:19→20:24)
[2017-05-25] MEDS: MULTIVITAMIN (CENTRUM) TABLET PO SCH (10:19)
[2017-05-25] MEDS: PANTOPRAZOLE 40 MG TABLET PO SCH (10:20)
[2017-05-25] MEDS: ACYCLOVIR 200 MG CAPSULE PO SCH ×3 (10:21→20:24)
[2017-05-25] MEDS: CALCIUM (CARBONATE)/VITAMIN D 600 MG-400 UNIT TABLET PO SCH (10:22)
[2017-05-25] MEDS: CYANOCOBALAMIN 500 MCG TABLET PO SCH (10:23)
[2017-05-25] MEDS: FLUTICASONE 50 MCG NASAL SPRAY 16 GM BOTTLE BOTH NARES SCH (10:24)
[2017-05-25] MEDS: FILGRASTIM-SNDZ 300 MCG/0.5 ML SYRINGE SUBCUT SCH (10:26)
[2017-05-25] MEDS: MEROPENEM 1,000 MG in SODIUM CHLORIDE 0.9% 100 ML IV SCH ×2 (10:29→20:23)
[2017-05-25] MEDS: POTASSIUM CHLORIDE RIDER 20 MEQ in PREMIX 1 EACH IV SCH ×2 (10:33→12:22)
[2017-05-25] MEDS: SODIUM CHLORIDE 0.9% 1,000 ML IV SCH (14:52)
[2017-05-25] MEDS: cefTRIAXone 1,000 MG in SODIUM CHLORIDE 0.9% 100 ML IV SCH (20:22)
[2017-05-26 07:43] LABS: Hematocrit 24.5 VOL% (35.7-47.0); Hemoglobin 8.6 GM/DL (12.0-16.0); Lymphocytes # 0.1 10*3/uL (1.4-4.0); Lymphocytes % 30.4 % (21.3-54.2); Mean Corpuscular HGB Conc 35.1 GM/DL (32-36); Mean Corpuscular Hemoglobin 31 PG (27-34); Mean Corpuscular Volume 87.5 FL (87-102); Mean Platelet Volume 11.8 FL (9.6-12.0); Monocytes % 4.3 % (1.7-12.7); Neutrophils # 0.2 10*3/uL (1.4-7.4); Neutrophils % 65.3 % (38.7-73.9); Platelet Count 46 T/CUMM (130-400); Red Cell Distribution Width 17.1 % (9.3-17.3)
[2017-05-26 07:51] LABS: White Blood Count 0.2 T/CUMM (4-12)
[2017-05-26 08:16] LABS: Bilirubin,Total 0.8 MG/DL (0.2-1.0); Calcium 7.9 MG/DL (8.5-10.1); Osmolality,Calculated 284.1 MOS/KG (273-304); Potassium 3.4 MMOL/L (3.5-5.1)
[2017-05-26 08:32] LABS: Hypochromasia Slight; Lymphocytes 33 % (20-55); Platelet Estimate Decreased; Segmented Neutrophils 67 % (50-85); Total Cells Counted 100
[2017-05-26 08:33] LABS: Microcytosis 2+
--- NOTE | 2017-05-26 08:55 | Oncology Progress Note ---
Oncology Subjective PN Interval history: Patient up in chair. Appears nontoxic. Comfortable on room air. Lungs clear bilaterally. Tolerating diet. No transfusions today. White blood cell count seems to show slight improvement will continue with Neupogen and antibiotics. Exam - Constitutional Vitals: Period Temp Pulse Resp BP Sys/Rothman Pulse Ox Last 24 Hr 96.7 F-99.8 F 95-119 18-24 105-130/59-77 94-98 Results - Labs CBC & BMP: 05/26/17 07:23 05/26/17 07:23
[2017-05-26] MEDS: MULTIVITAMIN (CENTRUM) TABLET PO SCH (09:12)
[2017-05-26] MEDS: CALCIUM (CARBONATE)/VITAMIN D 600 MG-400 UNIT TABLET PO SCH (09:12)
[2017-05-26] MEDS: ACYCLOVIR 200 MG CAPSULE PO SCH ×3 (09:12→20:56)
[2017-05-26] MEDS: MEROPENEM 1,000 MG in SODIUM CHLORIDE 0.9% 100 ML IV SCH ×2 (09:13→20:57)
[2017-05-26] MEDS: CYANOCOBALAMIN 500 MCG TABLET PO SCH (09:13)
[2017-05-26] MEDS: PANTOPRAZOLE 40 MG TABLET PO SCH (09:13)
[2017-05-26] MEDS: FILGRASTIM-SNDZ 300 MCG/0.5 ML SYRINGE SUBCUT SCH (09:13)
[2017-05-26] MEDS: FLUCONAZOLE 200 MG TABLET PO SCH ×2 (09:13→20:56)
[2017-05-26] MEDS: SODIUM CHLORIDE 0.9% 1,000 ML IV SCH (09:14)
[2017-05-26] MEDS: FLUTICASONE 50 MCG NASAL SPRAY 16 GM BOTTLE BOTH NARES SCH (09:14)
[2017-05-26] MEDS: POTASSIUM CHLORIDE 8 MEQ CAPSULE PO SCH (09:27)
[2017-05-26] MEDS: ASCORBIC ACID 500 MG TABLET PO SCH (10:22)
[2017-05-26] MEDS: cefTRIAXone 1,000 MG in SODIUM CHLORIDE 0.9% 100 ML IV SCH (20:57)
[2017-05-27 05:07] LABS: Hematocrit 23.7 VOL% (35.7-47.0); Hemoglobin 8.3 GM/DL (12.0-16.0); Lymphocytes # 0.1 10*3/uL (1.4-4.0); Lymphocytes % 26.2 % (21.3-54.2); Mean Corpuscular Hemoglobin 31 PG (27-34); Mean Corpuscular Volume 89.1 FL (87-102); Mean Platelet Volume 10.5 FL (9.6-12.0); Monocytes % 7.1 % (1.7-12.7); Neutrophils # 0.3 10*3/uL (1.4-7.4); Neutrophils % 66.7 % (38.7-73.9); Red Blood Count 2.66 MC/CUMM (3.8-5.5); Red Cell Distribution Width 16.9 % (9.3-17.3)
[2017-05-27 05:11] LABS: Platelet Count 36 T/CUMM (130-400); White Blood Count 0.4 T/CUMM (4-12)
[2017-05-27 05:36] LABS: Bilirubin,Total 0.6 MG/DL (0.2-1.0); Calcium 7.6 MG/DL (8.5-10.1); Magnesium 1.5 MG/DL (1.8-2.4); Osmolality,Calculated 285.1 MOS/KG (273-304); Potassium 3.7 MMOL/L (3.5-5.1); Total Protein 4.8 G/DL (6.4-8.3)
[2017-05-27 06:10] LABS: Band Neutrophils 20 % (0-10); Lymphocytes 20 % (20-55); Segmented Neutrophils 60 % (50-85); Total Cells Counted 100
[2017-05-27 06:11] LABS: Anisocytosis 1+; Hypochromasia 1+; Platelet Estimate Decreased
[2017-05-27] MEDS: MEROPENEM 1,000 MG in SODIUM CHLORIDE 0.9% 100 ML IV SCH ×2 (08:19→20:25)
[2017-05-27] MEDS: CYANOCOBALAMIN 500 MCG TABLET PO SCH (08:24)
[2017-05-27] MEDS: ACYCLOVIR 200 MG CAPSULE PO SCH ×3 (08:25→20:25)
--- NOTE | 2017-05-27 08:26 | Oncology Progress Note ---
Oncology Subjective PN Interval history: The patient is showing physical and laboratory improvement with white blood cell count 0.4 today. She was up in the chair most of the day yesterday. She does not require transfusion of either blood or platelets today. Her temperature curve has improved overall and there are no chills or shakes. She is comfortable on room air. We are discontinuing her antibiotics today and adjusting magnesium levels. She could potentially be discharged within the next 24-48 hours if continued improvement is present Exam - Constitutional Vitals: Period Temp Pulse Resp BP Sys/Rothman Pulse Ox Last 24 Hr 97.2 F-99.3 F 82-121 18-22 103-131/67-72 93-100 Results - Labs CBC & BMP: 05/27/17 04:50 05/27/17 04:49
[2017-05-27] MEDS: PANTOPRAZOLE 40 MG TABLET PO SCH (08:27)
[2017-05-27] MEDS: FLUTICASONE 50 MCG NASAL SPRAY 16 GM BOTTLE BOTH NARES SCH (08:27)
[2017-05-27] MEDS: CALCIUM (CARBONATE)/VITAMIN D 600 MG-400 UNIT TABLET PO SCH (08:27)
[2017-05-27] MEDS: FILGRASTIM-SNDZ 300 MCG/0.5 ML SYRINGE SUBCUT SCH (08:27)
[2017-05-27] MEDS: MULTIVITAMIN (CENTRUM) TABLET PO SCH (08:27)
[2017-05-27] MEDS: POTASSIUM CHLORIDE 8 MEQ CAPSULE PO SCH (08:27)
[2017-05-27] MEDS: FLUCONAZOLE 200 MG TABLET PO SCH ×2 (08:27→20:24)
[2017-05-27] MEDS ORDERED: MAGNESIUM SULF INJ 3 GM in SODIUM CHLORIDE 0.9% 100 ML IV ONE (09:00)
--- NOTE | 2017-05-27 09:55 | Physician Query Form ---
CLICK EDIT DOCUMENT TO SELECT QUERY ANSWER --> OK --> SIGN Jada Auguste RN, CCDS Certified Clinical Mica Splitter W) [phone] (f) [phone] [email or web address] PROVIDERS: Make your selection(s) from the choices in EACH section by typing an "x" and enter comments in the comment section. Please use your independent medical judgment in providing your response. This request does not imply that any particular answer is desired or expected. CLINICAL INDICATORS: (Providers should not edit this section) The below diagnosis was documented in the record, but is not consistently noted in subsequent documentation. The medical record indicates that the patient was admitted with Febrile neutropenia, 2 + blood cultures, WBC of 0.1, Pulse of 123#, Temp of 103.2# the patient was placed in ICU due to the hypotension: On the 8th: "E. coli neutropenic septicemia " Diagnosis "E. coli neutropenic septicemia " Please clarify the following: ( x) The above diagnosis was monitored, evaluated, and/or treated and is a confirmed diagnosis ( ) The above diagnosis was ruled out ( ) The above diagnosis is still a likely, suspected, probable diagnosis ( ) Other, please specify: ( ) Clinically unable to determine COMMENTS: PLEASE ALSO DOCUMENT RESPONSE IN PROGRESS NOTES AND/OR DISCHARGE SUMMARY Use of terms such as suspected, likely, or probable (associated with a specific diagnosis that is being evaluated, monitored, or treated as if it exists) are acceptable and can be restated in the discharge summary if not ruled out. MTDD
[2017-05-27] MEDS: cefTRIAXone 1,000 MG in SODIUM CHLORIDE 0.9% 100 ML IV SCH (21:06)
[2017-05-28 05:15] LABS: Basophils % 1.1 % (0.0-0.8); Hematocrit 27.2 VOL% (35.7-47.0); Hemoglobin 9.2 GM/DL (12.0-16.0); Immature Granulocytes % 1.1 %; Immature Granulocytes Absolute 0.01 #; Lymphocytes # 0.2 10*3/uL (1.4-4.0); Lymphocytes % 20.7 % (21.3-54.2); Mean Corpuscular HGB Conc 33.8 GM/DL (32-36); Mean Corpuscular Hemoglobin 31 PG (27-34); Mean Corpuscular Volume 90.4 FL (87-102); Mean Platelet Volume 12.8 FL (9.6-12.0); Monocytes # 0.1 10*3/uL (0.11-0.8); Monocytes % 5.4 % (1.7-12.7); Neutrophils # 0.7 10*3/uL (1.4-7.4); Neutrophils % 71.7 % (38.7-73.9); Red Blood Count 3.01 MC/CUMM (3.8-5.5); Red Cell Distribution Width 17.2 % (9.3-17.3)
[2017-05-28 05:47] LABS: Platelet Count 52 T/CUMM (130-400)
[2017-05-28 05:49] LABS: White Blood Count 0.9 T/CUMM (4-12)
[2017-05-28 05:56] LABS: Albumin 2.4 G/DL (3.4-5.0); Bilirubin,Total 0.4 MG/DL (0.2-1.0); Calcium 8.4 MG/DL (8.5-10.1); Magnesium 2.4 MG/DL (1.8-2.4); Osmolality,Calculated 281.4 MOS/KG (273-304); Potassium 4.6 MMOL/L (3.5-5.1); Total Protein 5.5 G/DL (6.4-8.3)
[2017-05-28 06:13] LABS: Band Neutrophils 20 % (0-10); Hypochromasia 1+; Lymphocytes 10 % (20-55); Microcytosis 2+; Platelet Estimate Decreased; Segmented Neutrophils 70 % (50-85); Total Cells Counted 100
[2017-05-28 08:06] VITALS: BP 126/64
[2017-05-28] MEDS: FILGRASTIM-SNDZ 300 MCG/0.5 ML SYRINGE SUBCUT SCH (09:02)
[2017-05-28] MEDS: PANTOPRAZOLE 40 MG TABLET PO SCH (09:02)
[2017-05-28] MEDS: POTASSIUM CHLORIDE 8 MEQ CAPSULE PO SCH (09:02)
[2017-05-28] MEDS: CYANOCOBALAMIN 500 MCG TABLET PO SCH (09:02)
[2017-05-28] MEDS: ACYCLOVIR 200 MG CAPSULE PO SCH (09:03)
[2017-05-28] MEDS: CALCIUM (CARBONATE)/VITAMIN D 600 MG-400 UNIT TABLET PO SCH (09:03)
[2017-05-28] MEDS: FLUCONAZOLE 200 MG TABLET PO SCH (09:03)
[2017-05-28] MEDS: MULTIVITAMIN (CENTRUM) TABLET PO SCH (09:03)
[2017-05-28] MEDS: FLUTICASONE 50 MCG NASAL SPRAY 16 GM BOTTLE BOTH NARES SCH (09:03)
--- NOTE | 2017-05-28 09:28 | Discharge Summary ---
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 The patient was discharged 4-5 days prior from [facility] after receiving intensive chemotherapy. During her hospitalization we have transfused with both blood and platelets irradiated products several occasions. The patient did have E. coli from blood cultures which was Levaquin resistant. Today's white blood count is rising at 0.9 in the absence of fever. Repeat blood cultures are negative. We have dosed with Neupogen daily during her hospitalization. She also had significant hypokalemia and we have supplemented this and will be providing her with a home prescription. I have given doxycycline 100 mg p.o. twice daily as her discharge antibiotic. I will check counts 4 days from today at my office that will help in determining timing of next chemotherapy administration. Discharge Plan - Discharge Medications New Potassium Chloride Cap/Tab [Micro K] 16 meq PO DAILY capsule Acyclovir Cap/Tab [Zovirax Cap/Tab] 400 mg PO TID capsule Continue Cyanocobalamin (Vitamin B-12) [Vitamin B-12] 1,000 mg PO DAILY Biotin 10,000 mcg PO DAILY Multivit,Calc,Mins/Iron/Folic [Women's Daily Formula Caplet] 1 each PO DAILY Fluticasone 50 Mcg Nasal [place] [Flonase Nasal [place]] 1 spray BOTH NARES DAILY Ondansetron Tab [Zofran Tab] 4 mg PO Q8HR PRN PRN Reason: Nausea Magnesium Chloride [Slow Mag] 64 mg PO Q4HR Pantoprazole Tab [Protonix Tab] 40 mg PO DAILY Acyclovir [Acyclovir Cap/Tab] 400 mg PO TID Allopurinol 300 mg PO DAILY Calcium Carbonate/Vitamin D3 [Calcium 600-Vit D3 800 Tablet] 600 mg PO DAILY Ascorbic Acid [Vitamin C] 1,000 mg PO BID Fluconazole Tab [Diflucan Tab] 200 mg PO BID Discontinued levoFLOXacin [Levaquin] 500 mg PO DAILY - Follow Up or Referral - Forms/Instructions Exam - Constitutional Vitals: Period Temp Pulse Resp BP Sys/Rothman Pulse Ox Last 24 Hr 96.3 F-98.6 F 93-105 18-22 115-131/64-75 93-97 Discharge Results Procedures and tests throughout hospitalization: Pending Orders 05/19/17 02:05 Red Blood Cells Leuko Red Stat 05/25/17 09:55 Blood Culture Routine 05/29/17 04:00 Comp Blood Count Auto Diff IN AM Comprehensive Metabolic Panel IN AM 05/30/17 04:00 Comp Blood Count Auto Diff IN AM Comprehensive Metabolic Panel IN AM 05/31/17 04:00 Comp Blood Count Auto Diff IN AM Comprehensive Metabolic Panel IN AM Labs on day of discharge: Labs from last 24 hours 05/28/17 05/28/17 05/25/17 04:00 04:00 04:00 WBC 0.9 L* D RBC 3.01 L Hgb 9.2 L Hct 27.2 L MCV 90.4 MCH 31 MCHC 33.8 RDW 17.2 Plt Count 52 L D MPV 12.8 H Neut % (Auto) 71.7 Lymph % (Auto) 20.7 L [place] % (Auto) 5.4 Eos % (Auto) 0.0 Baso % (Auto) 1.1 H Neut # (Auto) 0.7 L Lymph # (Auto) 0.2 L [place] # (Auto) 0.1 L Eos # (Auto) 0.0 Baso # (Auto) 0.0 Total Counted 100 Immature Gran % 1.1 Nucleated RBC % 0.0 Immature Gran # 0.01 Segmented Neutrophils 70 Band Neutrophils 20 H Lymphocytes 10 L Nucleated RBCs # 0.00 Platelet Estimate Decreased Hypochromasia 1+ Microcytosis 2+ Sodium 140 Potassium 4.6 Chloride 104 Carbon Dioxide 28 Anion Gap 12.6 BUN 23 H Creatinine 1.00 GFR Calculation 63 BUN/Creatinine Ratio 23.00 H Glucose 88 Calculated Osmolality 281.4 Calcium 8.4 L Magnesium 2.4 Total Bilirubin 0.40 AST 20 ALT 38 Alkaline Phosphatase 174 H Total Protein 5.5 L Albumin 2.4 L Globulin 3.1 Albumin/Globulin Ratio 0.7 L Cryoglobulin CMV Qnt PCR IU/mL Undetected 05/24/17 12:14 WBC RBC Hgb Hct MCV MCH MCHC RDW Plt Count MPV Neut % (Auto) Lymph % (Auto) [place] % (Auto) Eos % (Auto) Baso % (Auto) Neut # (Auto) Lymph # (Auto) [place] # (Auto) Eos # (Auto) Baso # (Auto) Total Counted Immature Gran % Nucleated RBC % Immature Gran # Segmented Neutrophils Band Neutrophils Lymphocytes Nucleated RBCs # Platelet Estimate Hypochromasia Microcytosis Sodium Potassium Chloride Carbon Dioxide Anion Gap BUN Creatinine GFR Calculation BUN/Creatinine Ratio Glucose Calculated Osmolality Calcium Magnesium Total Bilirubin AST ALT Alkaline Phosphatase Total Protein Albumin Globulin Albumin/Globulin Ratio Cryoglobulin Negative CMV Qnt PCR IU/mL Preliminary micro results at discharge 05/25/17 09:55 Blood Culture - Preliminary Blood No growth at 1 day DS: Provider Date of admission: 05/19/17 03:30 Primary care physician: . No PCP Attending physician on admission: Randall Aleman MD Consults: 05/20/17 16:20 Consult to Pharmacy [CONS] Routine Reason for Pharmacy Consult: Dose/Manage Vancomycin Comment: initiate and manage vanc. Discharging clinician: Randall Aleman MD
== END 2017-05-28 11:00 | disposition home or self-care (01) | DRG 871 ==
LOC: EDUNIT# → EDBD → N.ED 01:48 → N.EDINP 03:30 → N.ICU 04:29 → N.4E 17:38
PROVIDERS: ADMIT Specialist; ATTEND Specialist

== ENCOUNTER 2017-08-25 21:59 | Inpatient (IN) ==
--- NOTE | 2017-08-25 22:46 | Emergency Department Note ---
IGurdeep Brittany, am scribing for, and in the presence of, Lacy Gottlieb DO 22:38. IBull Debra, DO, personally performed the services described in this documentation, ascribed by Geno Mackenzie in my presence, and it is both accurate and complete . Arrival - Arrival Chief Complaint: Fever Stated Complaint: fever ED Nursing Triage Note: C/O Low grade fever x a few days, it got greater than 100 tonight. Pt is on chemo for ALL. Last chemo-Thursday a week ago. WBC 0.12 yesterday and was supposed to go back tomorrow to have it rechecked Mode of Arrival: Wheelchair Limitations: No Limitations Source: Patient, RN Notes Reviewed - History of Present Illness HPI Narrative: Patient is a 52 y/o white female presenting to the ED with c/o fever that began a few days ago. Patient reports that fever initially began as low grade, progressing even higher last night. She notes that her highest fever has been 100.8. She has not taken any Tylenol or Ibuprofen for this. Patient denies having any pain. 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 She is currently under the care of Dr. Aleman for this. Patient receives chemotherapy treatments per Dr. Sahu at [facility]. These treatments are span over the course of 5 days. Last treatment was a week ago. Patient has no further complaints. Date of Last Menstrual Period: PM Allergies/Adverse Reactions: Allergies Allergy/AdvReac Type Severity Reaction Status Date / Time Penicillins Allergy Intermediate RASH Verified 08/22/17 12:30 Home Medications: Home Medications Medication Instructions Recorded Confirmed Type Acyclovir [Acyclovir Cap/Tab] 400 mg PO TID 05/19/17 08/07/17 History Allopurinol 300 mg PO DAILY 05/19/17 08/07/17 History Biotin 10,000 mcg PO BEDTIME 05/19/17 08/07/17 History Calcium Carbonate/Vitamin D3 600 mg PO BEDTIME 05/19/17 08/07/17 History [Calcium 600-Vit D3 800 Tablet] Cyanocobalamin (Vitamin B-12) 1,000 mg PO DAILY 05/19/17 08/07/17 History [Vitamin B-12] Fluconazole Tab [Diflucan Tab] 200 mg PO BID 05/19/17 08/07/17 History Fluticasone 50 Mcg Nasal [place] 1 spray BOTH NARES DAILY 05/19/17 08/07/17 History [Flonase Nasal [place]] Magnesium Chloride [Slow Mag] 192 mg PO QAM 05/19/17 08/07/17 History Multivit,Calc,Mins/Iron/Folic 1 each PO DAILY 05/19/17 08/07/17 History [Women's Daily Formula Caplet] Ondansetron Tab [Zofran Tab] 4 mg PO Q8HR PRN 05/19/17 08/07/17 History Pantoprazole Tab [Protonix Tab] 40 mg PO DAILY 05/19/17 08/07/17 History Potassium Chloride Cap/Tab [Micro 16 meq PO DAILY 05/28/17 08/07/17 History K] Ascorbic Acid Tab [Vitamin C Tab] 500 mg PO BID 06/16/17 08/07/17 History Cetirizine Tab [ZyrTEC Tab] 10 mg PO DAILY 06/16/17 08/07/17 History Levofloxacin Tab [Levaquin Tab] 500 mg PO DAILY 06/16/17 08/07/17 History Magnesium Chloride [Slow Mag] 192 mg PO BEDTIME 06/16/17 08/07/17 History Review of System - Review of System 12 point system: reviewed and no additional remarkable complaints except as stated - Review of System Constitutional: Present: fever Eyes: Absent: vision change Head/Ears/Nose/Throat: Absent: nasal drainage, sore throat Respiratory: Absent: respiratory distress Cardiovascular: Absent: chest pain Gastrointestinal: Absent: abdominal pain, nausea, vomiting, diarrhea, constipation Genitourinary female: Absent: dysuria, frequency, urgency Musculoskeletal: Absent: arm pain, back pain, leg pain, neck pain Skin: Absent: rash Neurological: Absent: headache Psychiatric: Absent: anxiety, depression Hematological/Lymphatic: Absent: easy bleeding, easy bruising Medical,Surgical,& Family Hx - Medical History Neurology: No history of: Seizures Hematology: History of: Anemia Other: History of: Cancer - Social History Smoking Status: Never smoker Frequency of Alcohol Use: None Type of Drug Use: None Exam Vital Signs: Vital Signs Temperature 99.9 F H 08/25/17 22:07 Pulse Rate 109 H 08/25/17 22:07 Respiratory Rate 18 08/25/17 23:20 Blood Pressure 143/70 08/25/17 22:07 O2 Sat by Pulse Oximetry 100 08/25/17 22:07 - General General appearance: alert, in no apparent distress, other (bluish/black discoloration to the nose and around the oropharynx ) - Head Head exam: Present: atraumatic, normocephalic, normal inspection - Eye Eye exam: Present: normal appearance, PERRL, EOMI - ENT ENT exam: Present: normal exam, normal oropharynx - Neck Neck exam: Present: normal inspection, full ROM, trachea midline - Chest Chest inspection: Present: normal inspection, symmetric chest wall rise - Respiratory Respiratory exam: Present: normal lung sounds bilaterally. Absent: respiratory distress - Cardiovascular Cardiovascular exam: Present: regular rate, normal rhythm, normal heart sounds - Abdominal Exam Abdominal exam: Present: soft, normal bowel sounds. Absent: tenderness - Extremities Exam Extremities exam: Present: normal inspection - Back Exam Back exam: Present: normal inspection - Neurological Exam Neurological exam: Present: alert, oriented X3, CN II-XII intact. Absent: motor sensory deficit - Psychiatric Psychiatric exam: Present: normal affect, normal mood - Skin Skin exam: Present: warm, dry Course Course Narrative: spoke with DR Mackey who will admit pt for Dr Aleman. he wishes for 2 units to be transfused. pt is stable at this time Results - Labs CBC & BMP: 08/25/17 22:42 08/25/17 22:42 Lab Results: I have reviewed the patients labs Labs: Laboratory Tests 08/25/17 22:42 WBC 0.4 L* RBC 2.21 L Hgb 6.7 L Hct 19.8 L Plt Count 12 L* Lymph % (Auto) 19.5 L Eos % (Auto) 24.4 H Neut # (Auto) 0.2 L Lymph # (Auto) 0.[address] [place] # (Auto) 0.0 L Laboratory Tests 08/25/17 22:42 Sodium 138 Potassium 4.0 Chloride 108 H Carbon Dioxide 20 L BUN 18 Creatinine 1.40 H Glucose 101 Lactic Acid 0.9 Total Protein 5.5 L Albumin 2.5 L Albumin/Globulin Ratio 0.8 L Disposition Clinical Impression: Symptomatic anemia, Fever of unknown origin Case discussed with: patient, patient's family Disposition: Still a Patient Condition: Stable Time of Disposition: 23:51
[2017-08-25 23:12] LABS: Eosinophils # 0.1 10*3/uL (0.0-0.87); Eosinophils % 24.4 % (0.00-10.9); Hematocrit 19.8 VOL% (35.7-47.0); Hemoglobin 6.7 GM/DL (12.0-16.0); Lymphocytes # 0.1 10*3/uL (1.4-4.0); Lymphocytes % 19.5 % (21.3-54.2); Mean Corpuscular HGB Conc 33.8 GM/DL (32-36); Mean Corpuscular Hemoglobin 30 PG (27-34); Mean Corpuscular Volume 89.6 FL (87-102); Mean Platelet Volume 9.6 FL (9.6-12.0); Monocytes % 9.8 % (1.7-12.7); Neutrophils # 0.2 10*3/uL (1.4-7.4); Neutrophils % 46.3 % (38.7-73.9); Red Blood Count 2.21 MC/CUMM (3.8-5.5); Red Cell Distribution Width 17.3 % (9.3-17.3)
[2017-08-25 23:21] LABS: Platelet Count 12 T/CUMM (130-400); White Blood Count 0.4 T/CUMM (4-12)
[2017-08-25 23:30] LABS: Alanine Aminotransferase 17 U/L (13-56); Albumin 2.5 G/DL (3.4-5.0); Alkaline Phosphatase 95 U/L (45-117); Aspartate Amino Transferase 19 U/L (0-37); Bilirubin,Total < 0.39 MG/DL (0.2-1.0); Blood Urea Nitrogen 18 MG/DL (7-18); Calcium 8.6 MG/DL (8.5-10.1); Glucose 101 MG/DL (74-106); Lactic Acid 0.9 MMOL/L (0.4-2.0); Osmolality,Calculated 276.7 MOS/KG (273-304); Sodium 138 MMOL/L (136-145); Total Protein 5.5 G/DL (6.4-8.3)
[2017-08-25] MEDS ORDERED: LEVOFLOXACIN INJ 750 MG in PREMIX 1 EACH IV STA (23:41)
[2017-08-25] MEDS ORDERED: MAGNESIUM HYDROXIDE SUSP 30 ML UDCUP PO PRN (23:51)
[2017-08-25] MEDS ORDERED: TEMAZEPAM 7.5 MG CAPSULE PO PRN (23:51)
[2017-08-25] MEDS ORDERED: guaiFENesin 200 MG/10 ML UDCUP PO PRN (23:51)
[2017-08-25] MEDS ORDERED: ALPRAZolam 0.25 MG TABLET PO PRN (23:51)
[2017-08-25] MEDS ORDERED: BENZTROPINE 2 MG/2 ML AMP IV PRN (23:51)
[2017-08-25] MEDS ORDERED: traMADol 50 MG TABLET PO PRN (23:51)
[2017-08-25] MEDS ORDERED: PROMETHAZINE INJ 25 MG in SODIUM CHLORIDE 0.9% 50 ML IV PRN (23:51)
[2017-08-25] MEDS ORDERED: MYLANTA/LIDO VISC 2:1 300 ML BOTTLE SWISH/SPIT PRN (23:51)
[2017-08-25] MEDS ORDERED: ACETAMINOPHEN 325 MG TABLET PO PRN (23:51)
[2017-08-25] MEDS ORDERED: chlorproMAZINE 25 MG TABLET PO PRN (23:51)
[2017-08-25] MEDS ORDERED: MYLANTA/LIDO VISC 2:1 300 ML BOTTLE SWISH/SWAL PRN (23:51)
[2017-08-25] MEDS ORDERED: ALUMINUM/MAGNES/SIMETH MAX STR 30 ML UDCUP PO PRN (23:51)
[2017-08-25] MEDS ORDERED: LOPERAMIDE 2 MG CAPSULE PO PRN ×2 (23:51)
[2017-08-25] MEDS ORDERED: chlorproMAZINE INJ 50 MG in SODIUM CHLORIDE 0.9% 100 ML IV PRN (23:51)
[2017-08-25] MEDS ORDERED: chlorproMAZINE INJ 25 MG in SODIUM CHLORIDE 0.9% 100 ML IV PRN (23:51)
[2017-08-25] MEDS ORDERED: LACTULOSE 20 GM/30 ML UDCUP PO PRN (23:51)
[2017-08-25] MEDS ORDERED: diphenhydrAMINE CAP 25 MG CAPSULE PO PRN (23:51)
[2017-08-25 23:54] LABS: Apearance,Urine Slightly Hazy (Clear); Bilirubin,Urine Negative (Negative); Blood, Urine Small mg/dL (Negative); Glucose,Urine (UA) Negative (Negative); Ketones,Urine Negative (Negative); Mucus,Urine Occasional /LPF (Occasional); Nitrite,Urine Negative (Negative); Protein,Urine 100 MG/DL; RBC,Urine <1 /HPF (0-4); Renal Epithelial Cells,Urine Occasional /HPF (<1); Squamous Epithelial Cell,Urine Occasional /HPF (0-10); Urine Color Yellow (Yellow); Urine Urobilinogen < 2.0 EU/DL (0.2-1.0); WBC,Urine 3 /HPF (0-6)
[2017-08-25] MEDS ORDERED: SODIUM CHLORIDE 0.9% 250 ML IV PRN (23:54)
[2017-08-25] MEDS ORDERED: LEVOFLOXACIN INJ 150 ML IV ONE (23:54)
[2017-08-26 00:06] LABS: Anisocytosis 1+; Band Neutrophils 14 % (0-10); Eosinophils 23 % (0-10); Lymphocytes 18 % (20-55); Macrocytosis 1+; Metamyelocytes 9 %; Platelet Estimate Decreased; Promyelocytes 5 %; Segmented Neutrophils 23 % (50-85); Total Cells Counted 101
[2017-08-26 00:07] LABS: Ovalocytes Few
[2017-08-26] MEDS: SODIUM CHLORIDE 0.9% 1,000 ML IV SCH ×3 (01:06→20:39)
[2017-08-26 01:41] LABS: Magnesium 1.7 MG/DL (1.8-2.4); Uric Acid 4.6 MG/DL (2.6-6.0)
[2017-08-26] MEDS: ONDANSETRON 4 MG/2 ML VIAL IV PRN ×2 (02:02→09:35)
[2017-08-26 05:48] LABS: Apearance,Urine CLEAR (Clear); Bilirubin,Urine Negative (Negative); Blood, Urine Negative (Negative); Glucose,Urine (UA) Negative (Negative); Ketones,Urine Negative (Negative); Mucus,Urine Occasional /LPF (Occasional); Nitrite,Urine Negative (Negative); Protein,Urine 30 MG/DL; RBC,Urine 1 /HPF (0-4); Urine Color Yellow (Yellow); Urine Urobilinogen < 2.0 EU/DL (0.2-1.0); WBC,Urine 8 /HPF (0-6)
--- NOTE | 2017-08-26 07:26 | XRay Report ---
History is fever Comparison 06/16/2017 The heart is enlarged Lung markings grossly unchanged without consolidation Impression: Cardiomegaly PROCEDURE INTERPRETED AT [facility] DEPARTMENT OF RADIOLOGY Final Report Signed by: Dr. Camelia Terry
[2017-08-26] MEDS ORDERED: SODIUM CHLORIDE 0.9% 250 ML IV PRN (08:43)
[2017-08-26] MEDS ORDERED: ONDANSETRON 4 MG TABLET PO PRN (08:44)
--- NOTE | 2017-08-26 08:48 | Oncology History&Physical ---
Assessment and Plan (1) Acute lymphocytic leukemia Status: Acute Assessment and plan: We will support the patient with antibiotics Neupogen and blood products through her chemotherapy ruben Current Visit: No (2) Febrile neutropenia Status: Acute Assessment and plan: Aggressive antibiotic Current Visit: No History of Present Illness Chief complaint: Fever History of present illness: Ms. Gayle is a 52 year old female Who completed her fourth cycle of chemotherapy for recurrent ANLL around August 16. She was discharged and has been receiving outpatient Neupogen. It is my understanding that her chemo consisted of methotrexate and rachid-C. She was admitted last night with a temperature of 100.8. She did not report any hard shaking or chills accompanying the episode. She has been transfused both blood and platelets over the last 72 hours as an outpatient and is in need of further transfusions of each today. These will be irradiated due to her severe immunosuppression. Since her last encounter she has also began Sprycel as second line therapy for pH positive acute lymphocytic leukemia. Home Medications Medication Instructions Recorded Confirmed Type Acyclovir [Acyclovir Cap/Tab] 400 mg PO BID 05/19/17 08/26/17 History Allopurinol 300 mg PO DAILY 05/19/17 08/26/17 History Biotin 10,000 mcg PO BEDTIME 05/19/17 08/26/17 History Calcium Carbonate/Vitamin D3 600 mg PO BEDTIME 05/19/17 08/26/17 History [Calcium 600-Vit D3 800 Tablet] Fluconazole Tab [Diflucan Tab] 200 mg PO BID 05/19/17 08/26/17 History Fluticasone 50 Mcg Nasal [place] 1 spray BOTH NARES DAILY 05/19/17 08/26/17 History [Flonase Nasal [place]] Magnesium Chloride [Slow Mag] 192 mg PO QAM 05/19/17 08/26/17 History Multivit,Calc,Mins/Iron/Folic 1 each PO DAILY 05/19/17 08/26/17 History [Women's Daily Formula Caplet] Ondansetron Tab [Zofran Tab] 4 mg PO Q8HR PRN 05/19/17 08/26/17 History Pantoprazole Tab [Protonix Tab] 40 mg PO DAILY 05/19/17 08/26/17 History Potassium Chloride Cap/Tab [Micro 16 meq PO DAILY 05/28/17 08/26/17 History K] Ascorbic Acid Tab [Vitamin C Tab] 500 mg PO BID 06/16/17 08/26/17 History Cetirizine Tab [ZyrTEC Tab] 10 mg PO DAILY 06/16/17 08/26/17 History Levofloxacin Tab [Levaquin Tab] 500 mg PO DAILY 06/16/17 08/26/17 History Magnesium Chloride [Slow Mag] 192 mg PO BEDTIME 06/16/17 08/26/17 History Allergies Allergy/AdvReac Type Severity Reaction Status Date / Time Penicillins Allergy Intermediate RASH Verified 08/22/17 12:30 Medical,Surgical,& Family Hx - Medical History Neurology: No history of: Seizures Genitourinary: History of: Bladder Problem Hematology: History of: Anemia Other: History of: Cancer - Surgical History Cardiac Surgeries: Patient Denies: Cardiac Catheterization Abdominal Surgeries: Surgical HX of: Abdominal Surgery, Appendectomy (IN 2007) Reproductive Surgeries: Surgical HX of;: Genitourinary Surgery (Bladder reflux surgery) Patient denies;: Gynecologic Surgery - Family History Family History: Reports;: Family Heart Disease (Mother had a ND) - Social History Smoking Status: Never smoker Frequency of Alcohol Use: None Type of Drug Use: None - Constitutional Constitutional: Present: fever(s), malaise. Absent: night sweats, weakness, weight gain - EENT Eye: Absent: loss of vision Ears: Absent: ear discharge, ear pain Nose, mouth and throat: Absent: neck mass, neck pain, odynophagia - Cardiovascular Cardiovascular ROS IM: Absent: edema, orthopnea - Respiratory Respiratory: Absent: hemoptysis, wheezing - Gastrointestinal Gastrointestinal: Absent: heartburn, hematemesis - Genitourinary Genitourinary ROS female: Absent: flank pain, hematuria, urinary frequency - Musculoskeletal Musculoskeletal ROS: Absent: muscle cramps - Neurological Neurological ROS: Absent: dizziness Exam - Constitutional Vitals: Period Temp Pulse Resp BP Sys/Rothman Pulse Ox Last 24 Hr 98.8 F-100.8 F 97-112 16-20 99-143/51-70 95-100 General appearance: no acute distress, no over weight - Head Head Exam: Present: normocephalic, atraumatic - Eye Eye Exam: Present: EOMI. Absent: conjunctival injection, periorbital swelling, scleral icterus Pupils: Present: PERRL - ENT ENT exam: Present: normal external ear exam, normal oropharynx - Neck Neck exam: Present: normal inspection. Absent: lymphadenopathy - Respiratory Respiratory exam: Present: CTAB. Absent: accessory muscle use, chest wall tenderness - Cardiovascular Cardiovascular exam: Present: RRR - GI/Abdominal GI/Abdominal exam: Absent: ascites, distended, firm, guarding - Extremities Exam Extremities exam: Present: normal capillary refill. Absent: edema - Neurological Exam Neurological exam: Present: alert, oriented X3 - Psychiatric Psychiatric exam: Absent: normal affect, normal mood - Skin Skin exam: Present: warm, dry Results - Labs CBC & BMP: 08/25/17 22:42 08/25/17 22:42
[2017-08-26] MEDS ORDERED: FLUCONAZOLE 200 MG TABLET PO SCH (09:00)
[2017-08-26] MEDS: FILGRASTIM-SNDZ 300 MCG/0.5 ML SYRINGE SUBCUT SCH (10:34)
[2017-08-26] MEDS: FLUTICASONE 50 MCG NASAL SPRAY 16 GM BOTTLE BOTH NARES SCH (10:34)
[2017-08-26] MEDS: PANTOPRAZOLE 40 MG TABLET PO SCH (10:35)
[2017-08-26] MEDS: ASCORBIC ACID 500 MG TABLET PO SCH ×2 (10:35→20:36)
[2017-08-26] MEDS: CETIRIZINE 10 MG TABLET PO SCH (10:35)
[2017-08-26] MEDS: ACYCLOVIR 200 MG CAPSULE PO SCH ×2 (10:36→20:37)
[2017-08-26] MEDS: MAGNESIUM CHLORIDE 64 MG TABLET PO SCH (10:36)
[2017-08-26] MEDS: FLUCONAZOLE 200 MG TABLET PO SCH (10:36)
[2017-08-26] MEDS: MULTIVITAMIN (CENTRUM) TABLET PO SCH (10:36)
[2017-08-26] MEDS: POTASSIUM CHLORIDE 8 MEQ CAPSULE PO SCH (10:36)
[2017-08-26] MEDS ORDERED: MAGNESIUM CHLORIDE 64 MG TABLET PO SCH (21:00)
[2017-08-26] MEDS ORDERED: Biotin [Biotin] 10,000 MCG PO SCH (21:00)
[2017-08-27 06:16] LABS: Basophils % 1.9 % (0.0-0.8); Eosinophils # 0.2 10*3/uL (0.0-0.87); Eosinophils % 7.2 % (0.00-10.9); Hematocrit 23.7 VOL% (35.7-47.0); Immature Granulocytes % 11.1 %; Immature Granulocytes Absolute 0.23 #; Lymphocytes # 0.1 10*3/uL (1.4-4.0); Lymphocytes % 3.8 % (21.3-54.2); Mean Corpuscular Hemoglobin 31 PG (27-34); Mean Corpuscular Volume 87.8 FL (87-102); Mean Platelet Volume 9.8 FL (9.6-12.0); Monocytes # 0.1 10*3/uL (0.11-0.8); Monocytes % 3.8 % (1.7-12.7); Neutrophils # 1.5 10*3/uL (1.4-7.4); Neutrophils % 72.2 % (38.7-73.9); Platelet Count 45 T/CUMM (130-400); Red Cell Distribution Width 16.1 % (9.3-17.3); White Blood Count 2.1 T/CUMM (4-12)
[2017-08-27 06:19] LABS: Hemoglobin 8.3 GM/DL (12.0-16.0)
[2017-08-27 06:22] LABS: INR 1.1; PT Patient Result 11.2 SECS
[2017-08-27 06:43] LABS: Band Neutrophils 6 % (0-10); Eosinophils 6 % (0-10); Hypochromasia 1+; Lymphocytes 2 % (20-55); Microcytosis Slight; Ovalocytes Slight; Platelet Estimate Decreased; Segmented Neutrophils 83 % (50-85); Total Cells Counted 100
[2017-08-27] MEDS: SODIUM CHLORIDE 0.9% 1,000 ML IV SCH (06:50)
--- NOTE | 2017-08-27 08:39 | Discharge Summary ---
Hospital Course - Hospital Course Hospital Course: Patient admitted with febrile neutropenia with relapsed acute lymphocytic leukemia. Status post chemotherapy 10 days ago at [facility]. Blood cultures are negative and her white count has improved today. We will continue Neupogen. She will resume her prophylactic antibiotics with Levaquin, Diflucan, and acyclovir for home dosing. She has been prescribed Sprycel which I have told her to hold until sometime next week when marrow recovery is noted. She will receive additional doses of antibiotics and Neupogen today and will return to my office tomorrow for additional lab work and Neupogen administration. Her physical exam is benign today. Diagnosis - Discharge Diagnosis (1) Acute lymphocytic leukemia Status: Acute (2) Febrile neutropenia Status: Acute Discharge Plan - Discharge Medications No Action Biotin 10,000 mcg PO BEDTIME Multivit,Calc,Mins/Iron/Folic [Women's Daily Formula Caplet] 1 each PO DAILY Fluticasone 50 Mcg Nasal [place] [Flonase Nasal [place]] 1 spray BOTH NARES DAILY Ondansetron Tab [Zofran Tab] 4 mg PO Q8HR PRN PRN Reason: Nausea Magnesium Chloride [Slow Mag] 192 mg PO QAM Pantoprazole Tab [Protonix Tab] 40 mg PO DAILY Acyclovir [Acyclovir Cap/Tab] 400 mg PO BID Allopurinol 300 mg PO DAILY Calcium Carbonate/Vitamin D3 [Calcium 600-Vit D3 800 Tablet] 600 mg PO BEDTIME Ascorbic Acid Tab [Vitamin C Tab] 500 mg PO BID Magnesium Chloride [Slow Mag] 192 mg PO BEDTIME Levofloxacin Tab [Levaquin Tab] 500 mg PO DAILY Fluconazole Tab [Diflucan Tab] 200 mg PO BID Potassium Chloride Cap/Tab [Micro K] 16 meq PO DAILY Cetirizine Tab [ZyrTEC Tab] 10 mg PO DAILY - Follow Up or Referral - Forms/Instructions Exam - Constitutional Vitals: Period Temp Pulse Resp BP Sys/Rothman Pulse Ox Last 24 Hr 96.7 F-99.1 F 92-109 18-20 86-133/48-63 94-98 Discharge Results Procedures and tests throughout hospitalization: Pending Orders 08/25/17 23:00 Blood Culture Stat 08/26/17 Urine Culture Routine Labs on day of discharge: Labs from last 24 hours 08/27/17 08/27/17 08/25/17 06:01 06:01 23:54 WBC 2.1 L D RBC 2.70 L D Hgb 8.3 L D Hct 23.7 L MCV 87.8 MCH 31 MCHC 35.0 RDW 16.1 Plt Count 45 L D MPV 9.8 Neut % (Auto) 72.2 Lymph % (Auto) 3.8 L [place] % (Auto) 3.8 Eos % (Auto) 7.2 Baso % (Auto) 1.9 H Neut # (Auto) 1.5 Lymph # (Auto) 0.1 L [place] # (Auto) 0.1 L Eos # (Auto) 0.2 Baso # (Auto) 0.0 Total Counted 100 Immature Gran % 11.1 Nucleated RBC % 0.0 Immature Gran # 0.23 Segmented Neutrophils 83 Band Neutrophils 6 Lymphocytes 2 L Monocytes 3 Eosinophils 6 Nucleated RBCs # 0.00 Platelet Estimate Decreased Immature Plt Fraction 1.1 Hypochromasia 1+ Microcytosis Slight Ovalocytes Slight Morphology Comment INR 1.1 PT Patient/Control Mix 11.2 Blood Type A POSITIVE Antibody Screen Negative Crossmatch See Detail Preliminary micro results at discharge 08/25/17 23:00 Blood Culture - Preliminary Blood No growth at 1 day 08/25/17 22:42 Blood Culture - Preliminary Blood No growth at 1 day DS: Provider Date of admission: 08/25/17 23:51 Primary care physician: . No PCP Attending physician on admission: Randall Aleman MD Discharging clinician: Randall Aleman MD
[2017-08-27 09:10] VITALS: BP 94/50
[2017-08-27] MEDS: FILGRASTIM-SNDZ 300 MCG/0.5 ML SYRINGE SUBCUT SCH (09:15)
[2017-08-27] MEDS: CETIRIZINE 10 MG TABLET PO SCH (09:16)
[2017-08-27] MEDS: POTASSIUM CHLORIDE 8 MEQ CAPSULE PO SCH (09:16)
[2017-08-27] MEDS: ASCORBIC ACID 500 MG TABLET PO SCH (09:16)
[2017-08-27] MEDS: MAGNESIUM CHLORIDE 64 MG TABLET PO SCH (09:16)
[2017-08-27] MEDS: ACYCLOVIR 200 MG CAPSULE PO SCH (09:17)
[2017-08-27] MEDS: FLUCONAZOLE 200 MG TABLET PO SCH (09:17)
[2017-08-27] MEDS: PANTOPRAZOLE 40 MG TABLET PO SCH (09:17)
[2017-08-27] MEDS: MULTIVITAMIN (CENTRUM) TABLET PO SCH (09:17)
[2017-08-27] MEDS: FLUTICASONE 50 MCG NASAL SPRAY 16 GM BOTTLE BOTH NARES SCH (09:50)
[2017-08-27] MEDS ORDERED: ALTEPLASE 2 MG VIAL INTRACATH ONE (10:30)
== END 2017-08-27 12:50 | disposition home or self-care (01) | DRG 809 ==
LOC: N.ED 21:59 → N.EDINP 23:51 → N.4E 08-26 00:06
PROVIDERS: ADMIT Specialist; ATTEND Specialist

== ENCOUNTER 2017-11-12 22:16 | Inpatient (IN) ==
[2017-11-12] MEDS ORDERED: MEROPENEM 1,000 MG in SODIUM CHLORIDE 0.9% 100 ML IV STA (23:30)
[2017-11-12 23:38] LABS: Eosinophils # 0.1 10*3/uL (0.0-0.87); Eosinophils % 8.8 % (0.00-10.9); Hematocrit 25.2 VOL% (35.7-47.0); Hemoglobin 8.3 GM/DL (12.0-16.0); Immature Granulocytes % 1.8 %; Immature Granulocytes Absolute 0.02 #; Lymphocytes # 0.3 10*3/uL (1.4-4.0); Lymphocytes % 25.4 % (21.3-54.2); Mean Corpuscular HGB Conc 32.9 GM/DL (32-36); Mean Corpuscular Hemoglobin 37 PG (27-34); Mean Platelet Volume 10.4 FL (9.6-12.0); Monocytes % 0.9 % (1.7-12.7); Neutrophils # 0.7 10*3/uL (1.4-7.4); Neutrophils % 63.1 % (38.7-73.9); Red Blood Count 2.27 MC/CUMM (3.8-5.5); White Blood Count 1.1 T/CUMM (4-12)
[2017-11-12 23:46] LABS: Platelet Count 20 T/CUMM (130-400)
[2017-11-12 23:47] LABS: Alanine Aminotransferase 23 U/L (13-56); Albumin 3.2 G/DL (3.4-5.0); Alkaline Phosphatase 87 U/L (45-117); Aspartate Amino Transferase 38 U/L (0-37); Bilirubin,Total < 0.39 MG/DL (0.2-1.0); Calcium 8.4 MG/DL (8.5-10.1); Total Protein 6.5 G/DL (6.4-8.3)
[2017-11-12 23:48] LABS: Blood Urea Nitrogen 16 MG/DL (7-18); Glucose 163 MG/DL (74-106); Potassium 3.6 MMOL/L (3.5-5.1); Sodium 136 MMOL/L (136-145)
[2017-11-12 23:49] LABS: Lactic Acid 4.4 MMOL/L (0.4-2.0)
[2017-11-12 23:54] LABS: INR 0.9; PT Patient Result 9.7 SECS; Partial Thromboplastin Time 29.9 SECS (0-40)
[2017-11-13 00:08] LABS: Anisocytosis 1+; Band Neutrophils 18 % (0-10); Eosinophils 4 % (0-10); Lymphocytes 20 % (20-55); Poikilocytosis 1+; Segmented Neutrophils 58 % (50-85)
[2017-11-13 00:09] LABS: Total Cells Counted 100
[2017-11-13] MEDS ORDERED: SODIUM CHLORIDE 0.9% 2,000 ML IV STA (01:46)
[2017-11-13] MEDS ORDERED: LEVOFLOXACIN INJ 750 MG in PREMIX 1 EACH IV STA (01:50)
[2017-11-13] MEDS ORDERED: MEROPENEM 1,000 MG VIAL IV ONE ×2 (02:02→10:33)
[2017-11-13] MEDS ORDERED: ACETAMINOPHEN 325 MG TABLET PO ONE (02:10)
[2017-11-13] MEDS ORDERED: ACETAMINOPHEN 325 MG TABLET ONE (02:55)
[2017-11-13] MEDS ORDERED: LEVOFLOXACIN INJ 150 ML IV ONE (02:56)
[2017-11-13] MEDS ORDERED: PROMETHAZINE INJ 25 MG in SODIUM CHLORIDE 0.9% 50 ML IV PRN (05:11)
[2017-11-13] MEDS ORDERED: LACTULOSE 20 GM/30 ML UDCUP PO PRN (05:11)
[2017-11-13] MEDS ORDERED: MYLANTA/LIDO VISC 2:1 300 ML BOTTLE SWISH/SPIT PRN (05:11)
[2017-11-13] MEDS ORDERED: diphenhydrAMINE CAP 25 MG CAPSULE PO PRN (05:11)
[2017-11-13] MEDS ORDERED: ALPRAZolam 0.25 MG TABLET PO PRN (05:11)
[2017-11-13] MEDS ORDERED: chlorproMAZINE INJ 50 MG in SODIUM CHLORIDE 0.9% 100 ML IV PRN (05:11)
[2017-11-13] MEDS ORDERED: ALUMINUM/MAGNES/SIMETH MAX STR 30 ML UDCUP PO PRN (05:11)
[2017-11-13] MEDS ORDERED: guaiFENesin 200 MG/10 ML UDCUP PO PRN (05:11)
[2017-11-13] MEDS ORDERED: TEMAZEPAM 7.5 MG CAPSULE PO PRN (05:11)
[2017-11-13] MEDS ORDERED: ONDANSETRON 4 MG/2 ML VIAL IV PRN (05:11)
[2017-11-13] MEDS ORDERED: MAGNESIUM HYDROXIDE SUSP 30 ML UDCUP PO PRN (05:11)
[2017-11-13] MEDS ORDERED: BENZTROPINE 2 MG/2 ML AMP IV PRN (05:11)
[2017-11-13] MEDS ORDERED: LOPERAMIDE 2 MG CAPSULE PO PRN ×2 (05:11)
[2017-11-13] MEDS ORDERED: MYLANTA/LIDO VISC 2:1 300 ML BOTTLE SWISH/SWAL PRN (05:11)
[2017-11-13] MEDS ORDERED: chlorproMAZINE INJ 25 MG in SODIUM CHLORIDE 0.9% 100 ML IV PRN (05:11)
[2017-11-13] MEDS ORDERED: traMADol 50 MG TABLET PO PRN (05:11)
[2017-11-13] MEDS ORDERED: chlorproMAZINE 25 MG TABLET PO PRN (05:11)
[2017-11-13] MEDS ORDERED: PANTOPRAZOLE 40 MG VIAL IV SCH (09:00)
[2017-11-13] MEDS ORDERED: PANTOPRAZOLE 40 MG VIAL IV ONE (10:36)
[2017-11-13] MEDS: MEROPENEM 1,000 MG in SYRINGE 1 EACH IV SCH ×2 (10:40→15:23)
[2017-11-13] MEDS ORDERED: ONDANSETRON 4 MG TABLET PO PRN (11:03)
[2017-11-13] MEDS: FILGRASTIM-SNDZ 300 MCG/0.5 ML SYRINGE SUBCUT SCH (12:35)
[2017-11-13] MEDS: SODIUM CHLORIDE 0.9% 1,000 ML IV SCH ×2 (12:39→20:26)
[2017-11-13] MEDS: ACETAMINOPHEN 325 MG TABLET PO PRN ×2 (12:45→21:34)
[2017-11-13 12:53] LABS: Eosinophils % 5.3 % (0.00-10.9); Hemoglobin 6.5 GM/DL (12.0-16.0); Immature Granulocytes % 7.9 %; Immature Granulocytes Absolute 0.03 #; Lymphocytes # 0.1 10*3/uL (1.4-4.0); Lymphocytes % 31.6 % (21.3-54.2); Mean Corpuscular HGB Conc 32.5 GM/DL (32-36); Mean Corpuscular Hemoglobin 36 PG (27-34); Mean Corpuscular Volume 109.9 FL (87-102); Mean Platelet Volume 10.5 FL (9.6-12.0); Monocytes % 2.6 % (1.7-12.7); Neutrophils # 0.2 10*3/uL (1.4-7.4); Neutrophils % 52.6 % (38.7-73.9); Platelet Count 14 T/CUMM (130-400); Red Blood Count 1.82 MC/CUMM (3.8-5.5); Red Cell Distribution Width 19.9 % (9.3-17.3)
[2017-11-13 12:55] LABS: White Blood Count 0.4 T/CUMM (4-12)
[2017-11-13 13:26] LABS: Hypochromasia 2+; Lymphocytes 18 % (20-55); Microcytosis 2+; Platelet Estimate Decreased; Segmented Neutrophils 82 % (50-85); Total Cells Counted 100
[2017-11-13 17:58] LABS: Apearance,Urine CLEAR (Clear); Bilirubin,Urine Negative (Negative); Blood, Urine Negative (Negative); Calcium Oxalate Crystals,Urine Moderate /HPF (Few); Glucose,Urine (UA) Negative (Negative); Ketones,Urine Negative (Negative); Mucus,Urine Few /LPF (Occasional); Nitrite,Urine Negative (Negative); Protein,Urine Negative; RBC,Urine 2 /HPF (0-4); Squamous Epithelial Cell,Urine Occasional /HPF (0-10); Urine Color Yellow (Yellow); Urine Specific Gravity 1.028 (1.001-1.035); Urine Urobilinogen < 2.0 EU/DL (0.2-1.0); WBC,Urine 2 /HPF (0-6)
[2017-11-13] MEDS: MULTIVITAMIN (BEROCCA) TABLET PO SCH (21:29)
[2017-11-13] MEDS: MAGNESIUM CHLORIDE 64 MG TABLET PO SCH (21:29)
[2017-11-13] MEDS: ACYCLOVIR 200 MG CAPSULE PO SCH (21:29)
[2017-11-13] MEDS: FLUCONAZOLE 200 MG TABLET PO SCH (21:29)
[2017-11-13] MEDS: CALCIUM (CARBONATE)/VITAMIN D 600 MG-400 UNIT TABLET PO SCH (21:29)
[2017-11-13] MEDS: ASCORBIC ACID 500 MG TABLET PO SCH (21:29)
[2017-11-14] MEDS ORDERED: DEXAMETHASONE 10 MG/1 ML VIAL IV STA (00:01)
[2017-11-14] MEDS ORDERED: ACETAMINOPHEN 500 MG TABLET PO STA (00:02)
[2017-11-14] MEDS ORDERED: diphenhydrAMINE CAP 50 MG CAPSULE PO STA (00:02)
[2017-11-14] MEDS ORDERED: FUROSEMIDE 20 MG/2 ML VIAL IV STA (00:11)
[2017-11-14] MEDS ORDERED: ALBUTEROL 2.5 MG/3 ML NEB RESP TX ONE (00:26)
[2017-11-14] MEDS ORDERED: SUCCINYLCHOLINE 200 MG/10 ML VIAL ONE (00:34)
[2017-11-14] MEDS ORDERED: ETOMIDATE 20 MG/10 ML VIAL IV ONE ×2 (00:34→00:43)
[2017-11-14] MEDS ORDERED: SUCCINYLCHOLINE 200 MG/10 ML VIAL IV ONE (00:38)
[2017-11-14] MEDS ORDERED: FUROSEMIDE 100 MG/10 ML VIAL ONE (00:41)
[2017-11-14] MEDS ORDERED: fentaNYL 100 MCG/2 ML VIAL IV ONE (00:43)
[2017-11-14] MEDS ORDERED: FUROSEMIDE 40 MG/4 ML VIAL IV ONE (00:52)
[2017-11-14] MEDS: PROPOFOL 1,000 MG/100 ML BOTTLE IV SCH ×3 (00:55→09:26)
[2017-11-14] MEDS ORDERED: PHENYLEPHRINE DRIP 40 MG/250 ML PREMIX IV ONE (01:12)
[2017-11-14] MEDS: PHENYLEPHRINE DRIP 40 MG/250 ML PREMIX IV SCH ×2 (01:17→06:36)
[2017-11-14] MEDS: fentaNYL INJ 1,250 MCG in SODIUM CHLORIDE 0.9% 225 ML IV SCH (01:17)
[2017-11-14 01:27] LABS: Calcium 7.1 MG/DL (8.5-10.1); Osmolality,Calculated 293.1 MOS/KG (273-304); Potassium 3.9 MMOL/L (3.5-5.1)
[2017-11-14 01:31] LABS: ABG Base Excess -17.5 MMOL/L (-2.5-2.5); ABG HCO3 11.2 MMOL/L (20-26); ABG Oxygen Saturation 94.9 % (95-100); ABG PCO2 58.4 MM HG (35-48); ABG TCO2 13.9 MMOL/L (23-27)
[2017-11-14 01:34] LABS: ABG PH 6.987 (7.35-7.45)
[2017-11-14] MEDS ORDERED: SODIUM BICARBONATE 50 MEQ/50 ML SYRINGE IV ONE (02:24)
[2017-11-14] MEDS: SODIUM CHLORIDE 0.9% 1,000 ML IV SCH (02:28)
[2017-11-14] MEDS: MEROPENEM 1,000 MG in SYRINGE 1 EACH IV SCH ×2 (04:16→16:05)
[2017-11-14 04:21] LABS: Apearance,Urine Slightly Hazy (Clear); Bilirubin,Urine Negative (Negative); Blood, Urine Small mg/dL (Negative); Glucose,Urine (UA) 50 mg/dL (Negative); Ketones,Urine Negative (Negative); Mucus,Urine Occasional /LPF (Occasional); Nitrite,Urine Negative (Negative); Protein,Urine 100 MG/DL; RBC,Urine 1 /HPF (0-4); Urine Color Yellow (Yellow); Urine Specific Gravity 1.008 (1.001-1.035); Urine Urobilinogen < 2.0 EU/DL (0.2-1.0); WBC,Urine 2 /HPF (0-6)
[2017-11-14 04:55] LABS: Lactic Acid 2.4 MMOL/L (0.4-2.0)
[2017-11-14 05:34] LABS: Albumin 2.6 G/DL (3.4-5.0); Calcium 6.6 MG/DL (8.5-10.1); Magnesium 1.4 MG/DL (1.8-2.4); Osmolality,Calculated 290.7 MOS/KG (273-304); Potassium 3.5 MMOL/L (3.5-5.1); Total Protein 5.1 G/DL (6.4-8.3); Uric Acid 4.2 MG/DL (2.6-6.0)
[2017-11-14 05:37] LABS: Eosinophils % 7.1 % (0.00-10.9); Hemoglobin 8.1 GM/DL (12.0-16.0); Immature Granulocytes % 8.9 %; Immature Granulocytes Absolute 0.05 #; Lymphocytes # 0.3 10*3/uL (1.4-4.0); Mean Corpuscular HGB Conc 45.8 GM/DL (32-36); Mean Corpuscular Hemoglobin 50 PG (27-34); Mean Corpuscular Volume 109.3 FL (87-102); Mean Platelet Volume 10.5 FL (9.6-12.0); Monocytes % 7.1 % (1.7-12.7); NRBC # 0.04 10*3/uL; Neutrophils # 0.2 10*3/uL (1.4-7.4); Neutrophils % 26.9 % (38.7-73.9); Platelet Count 101 T/CUMM (130-400); Red Blood Count 1.62 MC/CUMM (3.8-5.5); Red Cell Distribution Width 25.2 % (9.3-17.3)
[2017-11-14 05:40] LABS: ABG Base Excess -3.8 MMOL/L (-2.5-2.5); ABG HCO3 21.3 MMOL/L (20-26); ABG Oxygen Saturation 98.3 % (95-100); ABG PCO2 33.8 MM HG (35-48); ABG PH 7.391 (7.35-7.45); ABG TCO2 18.9 MMOL/L (23-27); Allen Test Positive; Pt O2 Delivery Device Ventilator
[2017-11-14 05:41] LABS: Hematocrit 17.7 VOL% (35.7-47.0); White Blood Count 0.6 T/CUMM (4-12)
[2017-11-14 06:25] LABS: Band Neutrophils 5 % (0-10); Eosinophils 10 % (0-10); Lymphocytes 35 % (20-55); Metamyelocytes 5 %; Segmented Neutrophils 35 % (50-85); Total Cells Counted 100
[2017-11-14 06:27] LABS: Hypochromasia 1+; Microcytosis 2+; Platelet Estimate Decreased
[2017-11-14] MEDS ORDERED: POTASSIUM CHLORIDE RIDER 10 MEQ in PREMIX 1 EACH IV PRN (08:09)
[2017-11-14] MEDS ORDERED: MAGNESIUM SULF RIDER 4 GM in PREMIX 1 EACH IV PRN (08:09)
[2017-11-14] MEDS ORDERED: PANTOPRAZOLE 40 MG TABLET PO SCH (09:00)
[2017-11-14] MEDS: POTASSIUM CHLORIDE 8 MEQ CAPSULE PO SCH (09:23)
[2017-11-14] MEDS: ASCORBIC ACID 500 MG TABLET PO SCH ×2 (09:23→20:32)
[2017-11-14] MEDS: FLUCONAZOLE 200 MG TABLET PO SCH ×2 (09:23→20:32)
[2017-11-14] MEDS: FLUTICASONE 50 MCG NASAL SPRAY 16 GM BOTTLE BOTH NARES SCH (09:23)
[2017-11-14] MEDS: MULTIVITAMIN (CENTRUM) TABLET PO SCH (09:23)
[2017-11-14] MEDS: MAGNESIUM CHLORIDE 64 MG TABLET PO SCH ×2 (09:23→20:32)
[2017-11-14] MEDS: CETIRIZINE 10 MG TABLET PO SCH (09:24)
[2017-11-14] MEDS: MAGNESIUM SULF RIDER 2 GM in PREMIX 1 EACH IV PRN ×2 (09:56→12:02)
[2017-11-14] MEDS: PANTOPRAZOLE 40 MG VIAL IV SCH (09:56)
[2017-11-14] MEDS: POTASSIUM CHLORIDE RIDER 20 MEQ in PREMIX 1 EACH IV PRN ×2 (09:57→12:00)
[2017-11-14] MEDS ORDERED: VANCOMYCIN INJ 1,000 MG in SODIUM CHLORIDE 0.9% 250 ML IV SCH (10:00)
[2017-11-14] MEDS: ACYCLOVIR 200 MG CAPSULE PO SCH (10:17)
[2017-11-14] MEDS: FILGRASTIM-SNDZ 300 MCG/0.5 ML SYRINGE SUBCUT SCH (11:04)
[2017-11-14] MEDS: ACYCLOVIR INJ 500 MG in SODIUM CHLORIDE 0.9% 100 ML IV SCH ×2 (11:20→18:35)
[2017-11-14] MEDS ORDERED: VANCOMYCIN INJ 250 MG in SODIUM CHLORIDE 0.9% 100 ML IV SCH (14:00)
[2017-11-14] MEDS: ALBUTEROL/IPRATROPIUM 3 ML NEB RESP TX SCH ×2 (14:40→19:58)
[2017-11-14] MEDS ORDERED: INSULIN REGULAR 100 UNIT/ML SUBCUT ONE (18:20)
[2017-11-14] MEDS: MULTIVITAMIN (BEROCCA) TABLET PO SCH (20:32)
[2017-11-14] MEDS: CALCIUM (CARBONATE)/VITAMIN D 600 MG-400 UNIT TABLET PO SCH (20:32)
[2017-11-15] MEDS: PROPOFOL 1,000 MG/100 ML BOTTLE IV SCH ×2 (01:17→22:57)
[2017-11-15] MEDS: fentaNYL INJ 1,250 MCG in SODIUM CHLORIDE 0.9% 225 ML IV SCH (01:17)
[2017-11-15] MEDS: PHENYLEPHRINE DRIP 40 MG/250 ML PREMIX IV SCH (01:17)
[2017-11-15] MEDS: ALBUTEROL/IPRATROPIUM 3 ML NEB RESP TX SCH ×4 (01:26→19:09)
[2017-11-15 03:39] LABS: Hematocrit 25.5 VOL% (35.7-47.0); Hemoglobin 9.2 GM/DL (12.0-16.0); Immature Granulocytes % 8.3 %; Immature Granulocytes Absolute 0.03 #; Lymphocytes # 0.2 10*3/uL (1.4-4.0); Lymphocytes % 47.2 % (21.3-54.2); Mean Corpuscular HGB Conc 36.1 GM/DL (32-36); Mean Corpuscular Hemoglobin 35 PG (27-34); Mean Corpuscular Volume 96.2 FL (87-102); Mean Platelet Volume 10.8 FL (9.6-12.0); Monocytes % 8.3 % (1.7-12.7); Neutrophils # 0.1 10*3/uL (1.4-7.4); Neutrophils % 36.2 % (38.7-73.9); Platelet Count 47 T/CUMM (130-400); Red Blood Count 2.65 MC/CUMM (3.8-5.5); Red Cell Distribution Width 22.1 % (9.3-17.3)
[2017-11-15 03:42] LABS: White Blood Count 0.4 T/CUMM (4-12)
[2017-11-15] MEDS: MEROPENEM 1,000 MG in SYRINGE 1 EACH IV SCH ×2 (03:58→16:01)
[2017-11-15] MEDS: ACYCLOVIR INJ 500 MG in SODIUM CHLORIDE 0.9% 100 ML IV SCH ×3 (03:59→19:15)
[2017-11-15 04:17] LABS: Albumin 2.9 G/DL (3.4-5.0); Bilirubin,Total 0.5 MG/DL (0.2-1.0); Calcium 7.4 MG/DL (8.5-10.1); Magnesium 2.9 MG/DL (1.8-2.4); Osmolality,Calculated 299.6 MOS/KG (273-304); Potassium 3.6 MMOL/L (3.5-5.1); Total Protein 5.5 G/DL (6.4-8.3)
[2017-11-15 04:19] LABS: Band Neutrophils 12 % (0-10); Lymphocytes 52 % (20-55); Nucleated Red Blood Cells 1 (0-5); Segmented Neutrophils 24 % (50-85); Total Cells Counted 100
[2017-11-15 04:20] LABS: Anisocytosis 1+; Poikilocytosis 1+
[2017-11-15 04:22] LABS: ABG Base Excess -4.2 MMOL/L (-2.5-2.5); ABG HCO3 19.9 MMOL/L (20-26); ABG PH 7.385 (7.35-7.45); ABG PO2 225.6 MM HG (80-95); ABG TCO2 20.9 MMOL/L (23-27)
[2017-11-15 04:23] LABS: ABG Oxygen Saturation 99.5 % (95-100)
[2017-11-15] MEDS: LEVOFLOXACIN INJ 750 MG in PREMIX 1 EACH IV SCH (06:00)
[2017-11-15] MEDS: SODIUM CHLORIDE 0.45% 1,000 ML IV SCH (07:34)
[2017-11-15] MEDS: POTASSIUM CHLORIDE RIDER 20 MEQ in PREMIX 1 EACH IV PRN (07:54)
[2017-11-15] MEDS: MULTIVITAMIN (CENTRUM) TABLET PO SCH (09:31)
[2017-11-15] MEDS: FLUCONAZOLE 200 MG TABLET PO SCH ×2 (09:31→21:16)
[2017-11-15] MEDS: FLUTICASONE 50 MCG NASAL SPRAY 16 GM BOTTLE BOTH NARES SCH (09:32)
[2017-11-15] MEDS: MAGNESIUM CHLORIDE 64 MG TABLET PO SCH ×2 (09:33→21:16)
[2017-11-15] MEDS: ASCORBIC ACID 500 MG TABLET PO SCH ×2 (09:33→21:27)
[2017-11-15] MEDS: CETIRIZINE 10 MG TABLET PO SCH (09:35)
[2017-11-15] MEDS: FILGRASTIM-SNDZ 300 MCG/0.5 ML SYRINGE SUBCUT SCH (09:35)
[2017-11-15] MEDS: POTASSIUM CHLORIDE 8 MEQ CAPSULE PO SCH (09:36)
[2017-11-15] MEDS: PANTOPRAZOLE 40 MG VIAL IV SCH (10:12)
[2017-11-15] MEDS ORDERED: VANCOMYCIN INJ 1,000 MG in SODIUM CHLORIDE 0.9% 250 ML IV PRN (12:00)
[2017-11-15] MEDS ORDERED: VANCOMYCIN INJ 1,000 MG in SODIUM CHLORIDE 0.9% 250 ML IV ONE (13:00)
[2017-11-15] MEDS ORDERED: METOPROLOL TARTRATE 5 MG/5 ML VIAL IV ONE (14:53)
[2017-11-15] MEDS ORDERED: CARVEDILOL 3.125 MG TABLET PO SCH (15:00)
[2017-11-15] MEDS: FUROSEMIDE 20 MG/2 ML VIAL IV SCH (15:30)
[2017-11-15] MEDS: CALCIUM (CARBONATE)/VITAMIN D 600 MG-400 UNIT TABLET PO SCH (21:16)
[2017-11-15] MEDS: MULTIVITAMIN (BEROCCA) TABLET PO SCH (21:16)
[2017-11-15] MEDS: METOPROLOL TARTRATE 5 MG/5 ML VIAL IV SCH (21:27)
[2017-11-16] MEDS: ALBUTEROL/IPRATROPIUM 3 ML NEB RESP TX SCH ×4 (00:35→19:27)
[2017-11-16] MEDS: PHENYLEPHRINE DRIP 40 MG/250 ML PREMIX IV SCH (00:41)
[2017-11-16] MEDS: PROPOFOL 1,000 MG/100 ML BOTTLE IV SCH (00:41)
[2017-11-16 03:49] LABS: Hematocrit 26.6 VOL% (35.7-47.0); Hemoglobin 9.2 GM/DL (12.0-16.0); Immature Granulocytes % 10.6 %; Immature Granulocytes Absolute 0.05 #; Lymphocytes # 0.2 10*3/uL (1.4-4.0); Lymphocytes % 38.3 % (21.3-54.2); Mean Corpuscular HGB Conc 34.6 GM/DL (32-36); Mean Corpuscular Hemoglobin 34 PG (27-34); Mean Corpuscular Volume 96.7 FL (87-102); Mean Platelet Volume 11.4 FL (9.6-12.0); Monocytes # 0.2 10*3/uL (0.11-0.8); Monocytes % 36.2 % (1.7-12.7); NRBC # 0.03 10*3/uL; Neutrophils # 0.1 10*3/uL (1.4-7.4); Neutrophils % 14.9 % (38.7-73.9); Red Blood Count 2.75 MC/CUMM (3.8-5.5); Red Cell Distribution Width 21.6 % (9.3-17.3)
[2017-11-16 03:52] LABS: Platelet Count 54 T/CUMM (130-400)
[2017-11-16 03:54] LABS: White Blood Count 0.5 T/CUMM (4-12)
[2017-11-16 03:59] LABS: ABG Base Excess -0.1 MMOL/L (-2.5-2.5); ABG HCO3 23.4 MMOL/L (20-26); ABG Oxygen Saturation 98.5 % (95-100); ABG PCO2 33.6 MM HG (35-48); ABG PH 7.461 (7.35-7.45); ABG PO2 234.5 MM HG (80-95); ABG TCO2 24.4 MMOL/L (23-27); Allen Test Positive; Pt O2 Delivery Device Ventilator
[2017-11-16 04:14] LABS: Magnesium 2.4 MG/DL (1.8-2.4); Osmolality,Calculated 296.8 MOS/KG (273-304); Potassium 3.9 MMOL/L (3.5-5.1)
[2017-11-16] MEDS: ACYCLOVIR INJ 500 MG in SODIUM CHLORIDE 0.9% 100 ML IV SCH ×3 (04:20→18:29)
[2017-11-16] MEDS: MEROPENEM 1,000 MG in SYRINGE 1 EACH IV SCH ×2 (04:20→14:50)
[2017-11-16] MEDS: METOPROLOL TARTRATE 5 MG/5 ML VIAL IV SCH ×2 (04:22→09:01)
[2017-11-16] MEDS: SODIUM CHLORIDE 0.45% 1,000 ML IV SCH (05:06)
[2017-11-16 05:27] LABS: Albumin 3.2 G/DL (3.4-5.0); Bilirubin,Direct 0.2 MG/DL (0.0-0.20); Bilirubin,Indirect 0.4 MG/DL (0.0-1.0); Bilirubin,Total 0.6 MG/DL (0.2-1.0); Total Protein 5.5 G/DL (6.4-8.3)
[2017-11-16 05:30] LABS: Band Neutrophils 3 % (0-10); Metamyelocytes 3 %
[2017-11-16 05:31] LABS: Lymphocytes 60 % (20-55); Nucleated Red Blood Cells 5 (0-5); Segmented Neutrophils 17 % (50-85); Total Cells Counted 100
[2017-11-16 05:33] LABS: Hypochromasia 1+; Platelet Estimate Decreased
[2017-11-16 08:34] LABS: ABG Base Excess 1.1 MMOL/L (-2.5-2.5); ABG HCO3 25.4 MMOL/L (20-26); ABG Oxygen Saturation 96.7 % (95-100); ABG PCO2 39.2 MM HG (35-48); ABG PH 7.421 (7.35-7.45); ABG PO2 84.8 MM HG (80-95); ABG TCO2 23.3 MMOL/L (23-27)
[2017-11-16] MEDS: PANTOPRAZOLE 40 MG VIAL IV SCH (09:00)
[2017-11-16] MEDS: FUROSEMIDE 20 MG/2 ML VIAL IV SCH (09:01)
[2017-11-16] MEDS: MULTIVITAMIN (CENTRUM) TABLET PO SCH (09:02)
[2017-11-16] MEDS: FLUCONAZOLE 200 MG TABLET PO SCH ×2 (09:02→21:41)
[2017-11-16] MEDS: MAGNESIUM CHLORIDE 64 MG TABLET PO SCH ×2 (09:02→21:41)
[2017-11-16] MEDS: POTASSIUM CHLORIDE 8 MEQ CAPSULE PO SCH (09:02)
[2017-11-16] MEDS: ASCORBIC ACID 500 MG TABLET PO SCH ×2 (09:03→21:41)
[2017-11-16] MEDS: FLUTICASONE 50 MCG NASAL SPRAY 16 GM BOTTLE BOTH NARES SCH (09:03)
[2017-11-16] MEDS: CETIRIZINE 10 MG TABLET PO SCH (09:03)
[2017-11-16] MEDS: POTASSIUM CHLORIDE RIDER 20 MEQ in PREMIX 1 EACH IV PRN (09:30)
[2017-11-16] MEDS: FILGRASTIM-SNDZ 300 MCG/0.5 ML SYRINGE SUBCUT SCH (11:43)
[2017-11-16] MEDS: SACUBITRIL/VALSARTAN 49-51 MG TABLET PO SCH ×2 (12:16→21:41)
[2017-11-16] MEDS: CARVEDILOL 3.125 MG TABLET PO SCH ×2 (12:16→17:07)
[2017-11-16] MEDS: CALCIUM (CARBONATE)/VITAMIN D 600 MG-400 UNIT TABLET PO SCH (21:41)
[2017-11-16] MEDS: MULTIVITAMIN (BEROCCA) TABLET PO SCH (21:41)
[2017-11-17] MEDS: ALBUTEROL/IPRATROPIUM 3 ML NEB RESP TX SCH ×5 (00:14→23:44)
[2017-11-17] MEDS: SODIUM CHLORIDE 0.45% 1,000 ML IV SCH ×2 (00:43→03:21)
[2017-11-17] MEDS: PHENYLEPHRINE DRIP 40 MG/250 ML PREMIX IV SCH (03:21)
[2017-11-17 03:39] LABS: ABG Base Excess 4.9 MMOL/L (-2.5-2.5); ABG HCO3 28.9 MMOL/L (20-26); ABG Oxygen Saturation 98.5 % (95-100); ABG PCO2 42.3 MM HG (35-48); ABG TCO2 26.9 MMOL/L (23-27)
[2017-11-17] MEDS: MEROPENEM 1,000 MG in SYRINGE 1 EACH IV SCH ×3 (04:02→21:38)
[2017-11-17] MEDS: ACYCLOVIR INJ 500 MG in SODIUM CHLORIDE 0.9% 100 ML IV SCH (04:03)
[2017-11-17 04:58] LABS: Hematocrit 23.3 VOL% (35.7-47.0); Immature Granulocytes % 9.5 %; Immature Granulocytes Absolute 0.14 #; Lymphocytes # 0.3 10*3/uL (1.4-4.0); Lymphocytes % 17.6 % (21.3-54.2); Mean Corpuscular HGB Conc 34.3 GM/DL (32-36); Mean Corpuscular Hemoglobin 34 PG (27-34); Mean Corpuscular Volume 97.9 FL (87-102); Mean Platelet Volume 11.2 FL (9.6-12.0); Monocytes # 0.7 10*3/uL (0.11-0.8); NRBC # 0.14 10*3/uL; Neutrophils # 0.3 10*3/uL (1.4-7.4); Neutrophils % 22.9 % (38.7-73.9); Platelet Count 65 T/CUMM (130-400); Red Blood Count 2.38 MC/CUMM (3.8-5.5); Red Cell Distribution Width 20.9 % (9.3-17.3); White Blood Count 1.5 T/CUMM (4-12)
[2017-11-17 05:30] LABS: Band Neutrophils 5 % (0-10); Eosinophils 4 % (0-10); Giant Platelets Few; Hypochromasia 1+; Lymphocytes 28 % (20-55); Myelocytes 2 %; Nucleated Red Blood Cells 5 (0-5); Platelet Estimate Decreased; Segmented Neutrophils 8 % (50-85); Total Cells Counted 100
[2017-11-17 05:31] LABS: Calcium 7.6 MG/DL (8.5-10.1); Magnesium 1.8 MG/DL (1.8-2.4); Microcytosis Slight; Osmolality,Calculated 278.8 MOS/KG (273-304); Potassium 3.7 MMOL/L (3.5-5.1)
[2017-11-17] MEDS: POTASSIUM CHLORIDE RIDER 20 MEQ in PREMIX 1 EACH IV PRN (06:17)
[2017-11-17] MEDS: LEVOFLOXACIN INJ 750 MG in PREMIX 1 EACH IV SCH (06:18)
[2017-11-17] MEDS: PANTOPRAZOLE 40 MG VIAL IV SCH (09:23)
[2017-11-17] MEDS: FUROSEMIDE 20 MG/2 ML VIAL IV SCH ×2 (09:23→17:04)
[2017-11-17] MEDS: MAGNESIUM CHLORIDE 64 MG TABLET PO SCH ×2 (09:24→21:41)
[2017-11-17] MEDS: POTASSIUM CHLORIDE 8 MEQ CAPSULE PO SCH (09:24)
[2017-11-17] MEDS: FLUCONAZOLE 200 MG TABLET PO SCH ×2 (09:25→21:41)
[2017-11-17] MEDS: CETIRIZINE 10 MG TABLET PO SCH (09:25)
[2017-11-17] MEDS: ASCORBIC ACID 500 MG TABLET PO SCH ×2 (09:26→21:41)
[2017-11-17] MEDS: CARVEDILOL 3.125 MG TABLET PO SCH ×2 (09:27→17:25)
[2017-11-17] MEDS: MULTIVITAMIN (CENTRUM) TABLET PO SCH (09:27)
[2017-11-17] MEDS: SACUBITRIL/VALSARTAN 49-51 MG TABLET PO SCH ×2 (09:27→21:07)
[2017-11-17] MEDS: FLUTICASONE 50 MCG NASAL SPRAY 16 GM BOTTLE BOTH NARES SCH (09:27)
[2017-11-17] MEDS: ACYCLOVIR 200 MG CAPSULE PO SCH ×2 (10:46→21:41)
[2017-11-17] MEDS: FILGRASTIM-SNDZ 300 MCG/0.5 ML SYRINGE SUBCUT SCH (12:20)
[2017-11-17] MEDS: OSELTAMIVIR 75 MG CAPSULE PO SCH (14:18)
[2017-11-17] MEDS: CALCIUM (CARBONATE)/VITAMIN D 600 MG-400 UNIT TABLET PO SCH (21:41)
[2017-11-17] MEDS: MULTIVITAMIN (BEROCCA) TABLET PO SCH (21:41)
[2017-11-18] MEDS: MEROPENEM 1,000 MG in SYRINGE 1 EACH IV SCH ×3 (04:06→21:18)
[2017-11-18] MEDS: SODIUM CHLORIDE 0.45% 1,000 ML IV SCH (04:25)
[2017-11-18 06:23] LABS: Calcium 7.8 MG/DL (8.5-10.1); Magnesium 1.8 MG/DL (1.8-2.4); Osmolality,Calculated 283.4 MOS/KG (273-304)
[2017-11-18 08:04] LABS: Basophils % 0.3 % (0.0-0.8); Eosinophils # 0.1 10*3/uL (0.0-0.87); Eosinophils % 0.5 % (0.00-10.9); Hematocrit 31.5 VOL% (35.7-47.0); Immature Granulocytes % 16.3 %; Immature Granulocytes Absolute 1.79 #; Lymphocytes # 0.6 10*3/uL (1.4-4.0); Lymphocytes % 5.5 % (21.3-54.2); Mean Corpuscular HGB Conc 34.6 GM/DL (32-36); Mean Corpuscular Hemoglobin 34 PG (27-34); Mean Corpuscular Volume 98.1 FL (87-102); Mean Platelet Volume 11.6 FL (9.6-12.0); Monocytes # 2.8 10*3/uL (0.11-0.8); NRBC # 0.47 10*3/uL; Neutrophils # 5.8 10*3/uL (1.4-7.4); Neutrophils % 52.4 % (38.7-73.9); Platelet Count 68 T/CUMM (130-400); Red Cell Distribution Width 20.6 % (9.3-17.3)
[2017-11-18] MEDS: ALBUTEROL/IPRATROPIUM 3 ML NEB RESP TX SCH ×3 (08:12→20:46)
[2017-11-18] MEDS ORDERED: ALTEPLASE 2 MG VIAL IV ONE ×2 (09:00→14:03)
[2017-11-18 09:03] LABS: Hemoglobin 10.9 GM/DL (12.0-16.0); Red Blood Count 3.21 MC/CUMM (3.8-5.5)
[2017-11-18 09:21] LABS: Band Neutrophils 2 % (0-10); Lymphocytes 13 % (20-55); Metamyelocytes 1 %; Myelocytes 1 %; Nucleated Red Blood Cells 7 (0-5); Promyelocytes 5 %; Segmented Neutrophils 50 % (50-85); Total Cells Counted 100
[2017-11-18 09:22] LABS: Hypochromasia 1+
[2017-11-18 09:23] LABS: Microcytosis 1+; Platelet Estimate Decreased
[2017-11-18] MEDS: ACYCLOVIR 200 MG CAPSULE PO SCH ×2 (10:16→21:18)
[2017-11-18] MEDS: OSELTAMIVIR 75 MG CAPSULE PO SCH (10:16)
[2017-11-18] MEDS: POTASSIUM CHLORIDE 8 MEQ CAPSULE PO SCH (10:16)
[2017-11-18] MEDS: CETIRIZINE 10 MG TABLET PO SCH (10:17)
[2017-11-18] MEDS: SACUBITRIL/VALSARTAN 49-51 MG TABLET PO SCH ×2 (10:17→20:00)
[2017-11-18] MEDS: ASCORBIC ACID 500 MG TABLET PO SCH ×2 (10:17→22:40)
[2017-11-18] MEDS: FLUCONAZOLE 200 MG TABLET PO SCH ×2 (10:18→21:18)
[2017-11-18] MEDS: MULTIVITAMIN (CENTRUM) TABLET PO SCH (10:18)
[2017-11-18] MEDS: MAGNESIUM CHLORIDE 64 MG TABLET PO SCH ×2 (10:18→21:18)
[2017-11-18] MEDS: CARVEDILOL 3.125 MG TABLET PO SCH ×2 (10:18→17:23)
[2017-11-18] MEDS: FLUTICASONE 50 MCG NASAL SPRAY 16 GM BOTTLE BOTH NARES SCH (10:19)
[2017-11-18] MEDS: FUROSEMIDE 20 MG/2 ML VIAL IV SCH (10:22)
[2017-11-18] MEDS: PANTOPRAZOLE 40 MG VIAL IV SCH (10:26)
[2017-11-18] MEDS: FILGRASTIM-SNDZ 300 MCG/0.5 ML SYRINGE SUBCUT SCH (10:42)
[2017-11-18] MEDS: CALCIUM (CARBONATE)/VITAMIN D 600 MG-400 UNIT TABLET PO SCH (21:18)
[2017-11-18] MEDS: MULTIVITAMIN (BEROCCA) TABLET PO SCH (21:18)
[2017-11-19] MEDS: ALBUTEROL/IPRATROPIUM 3 ML NEB RESP TX SCH ×3 (02:01→12:10)
[2017-11-19] MEDS: MEROPENEM 1,000 MG in SYRINGE 1 EACH IV SCH ×2 (04:39→13:27)
[2017-11-19 05:24] LABS: Calcium 9.3 MG/DL (8.5-10.1); Magnesium 2.3 MG/DL (1.8-2.4); Osmolality,Calculated 284.5 MOS/KG (273-304); Potassium 4.6 MMOL/L (3.5-5.1)
[2017-11-19] MEDS ORDERED: SODIUM CHLORIDE 0.9% 500 ML IV ONE (07:36)
[2017-11-19] MEDS: MULTIVITAMIN (CENTRUM) TABLET PO SCH (10:10)
[2017-11-19] MEDS: MAGNESIUM CHLORIDE 64 MG TABLET PO SCH (10:10)
[2017-11-19] MEDS: POTASSIUM CHLORIDE 8 MEQ CAPSULE PO SCH (10:10)
[2017-11-19] MEDS: CETIRIZINE 10 MG TABLET PO SCH (10:11)
[2017-11-19] MEDS: ASCORBIC ACID 500 MG TABLET PO SCH (10:11)
[2017-11-19] MEDS: FLUCONAZOLE 200 MG TABLET PO SCH (10:11)
[2017-11-19] MEDS: ACYCLOVIR 200 MG CAPSULE PO SCH (10:11)
[2017-11-19] MEDS: PANTOPRAZOLE 40 MG VIAL IV SCH (10:12)
[2017-11-19] MEDS: OSELTAMIVIR 75 MG CAPSULE PO SCH (10:12)
[2017-11-19] MEDS: FLUTICASONE 50 MCG NASAL SPRAY 16 GM BOTTLE BOTH NARES SCH (10:16)
[2017-11-19] MEDS: HEPARIN LOCK FLUSH 500 UNIT/5 ML SYRINGE IV PRN ×2 (13:34→13:35)
[2017-11-19 14:39] VITALS: BP 84/62
== END 2017-11-19 13:50 | disposition home or self-care (01) | DRG 871 ==
LOC: N.ED 22:16 → N.EDINP 11-13 01:50 → N.4E 11-13 11:18 → N.ICU 11-14 00:41 → N.4E 11-17 10:57
PROVIDERS: ADMIT Specialist; ATTEND Specialist

== ENCOUNTER 2018-07-20 16:24 | Inpatient (IN) ==
[2018-07-20] MEDS ORDERED: MEROPENEM 1,000 MG in SODIUM CHLORIDE 0.9% 100 ML IV SCH (21:30)
[2018-07-20] MEDS ORDERED: VANCOMYCIN INJ 1,000 MG in SODIUM CHLORIDE 0.9% 250 ML IV ONE (22:00)
[2018-07-20 22:23] LABS: Albumin 3.2 G/DL (3.4-5.0); Calcium 8.9 MG/DL (8.5-10.1); Osmolality,Calculated 284.3 MOS/KG (273-304); Potassium 3.6 MMOL/L (3.5-5.1)
[2018-07-21] MEDS: ACETAMINOPHEN 325 MG TABLET PO PRN ×2 (00:19→14:41)
[2018-07-21] MEDS ORDERED: diphenhydrAMINE CAP 25 MG CAPSULE PO PRN (07:30)
[2018-07-21] MEDS ORDERED: ALPRAZolam 0.25 MG TABLET PO PRN (07:30)
[2018-07-21] MEDS ORDERED: MYLANTA/LIDO VISC 2:1 300 ML BOTTLE SWISH/SWAL PRN (07:30)
[2018-07-21] MEDS ORDERED: TEMAZEPAM 7.5 MG CAPSULE PO PRN (07:30)
[2018-07-21] MEDS ORDERED: ONDANSETRON 4 MG/2 ML VIAL IV PRN (07:30)
[2018-07-21] MEDS ORDERED: traMADol 50 MG TABLET PO PRN (07:30)
[2018-07-21] MEDS ORDERED: LOPERAMIDE 2 MG CAPSULE PO PRN ×2 (07:30)
[2018-07-21] MEDS ORDERED: ALUMINUM/MAGNES/SIMETH MAX STR 30 ML UDCUP PO PRN (07:30)
[2018-07-21] MEDS ORDERED: BENZTROPINE 2 MG/2 ML AMP IV PRN (07:30)
[2018-07-21] MEDS ORDERED: guaiFENesin 200 MG/10 ML UDCUP PO PRN (07:30)
[2018-07-21] MEDS ORDERED: chlorproMAZINE 25 MG TABLET PO PRN (07:30)
[2018-07-21] MEDS ORDERED: PROMETHAZINE INJ 25 MG in SODIUM CHLORIDE 0.9% 50 ML IV PRN (07:30)
[2018-07-21] MEDS ORDERED: MYLANTA/LIDO VISC 2:1 300 ML BOTTLE SWISH/SPIT PRN (07:30)
[2018-07-21] MEDS ORDERED: chlorproMAZINE INJ 50 MG in SODIUM CHLORIDE 0.9% 100 ML IV PRN (07:30)
[2018-07-21] MEDS ORDERED: LACTULOSE 20 GM/30 ML UDCUP PO PRN (07:30)
[2018-07-21] MEDS ORDERED: ACETAMINOPHEN 325 MG TABLET PO PRN (07:30)
[2018-07-21] MEDS ORDERED: chlorproMAZINE INJ 25 MG in SODIUM CHLORIDE 0.9% 100 ML IV PRN (07:30)
[2018-07-21] MEDS ORDERED: MAGNESIUM HYDROXIDE SUSP 30 ML UDCUP PO PRN (07:30)
[2018-07-21] MEDS ORDERED: PANTOPRAZOLE 40 MG TABLET PO PRN (08:55)
[2018-07-21] MEDS ORDERED: ONDANSETRON 4 MG TABLET PO PRN (08:55)
[2018-07-21 09:45] LABS: Basophils % 0.2 % (0.0-0.8); Eosinophils # 0.2 10*3/uL (0.0-0.87); Eosinophils % 1.7 % (0.00-10.9); Hematocrit 34.4 VOL% (35.7-47.0); Hemoglobin 11.7 GM/DL (12.0-16.0); Immature Granulocytes % 1.1 %; Immature Granulocytes Absolute 0.15 #; Lymphocytes # 1.1 10*3/uL (1.4-4.0); Lymphocytes % 8.2 % (21.3-54.2); Mean Corpuscular Hemoglobin 35 PG (27-34); Mean Corpuscular Volume 102.7 FL (87-102); Mean Platelet Volume 10.6 FL (9.6-12.0); Monocytes # 2.1 10*3/uL (0.11-0.8); Monocytes % 15.9 % (1.7-12.7); Neutrophils # 9.7 10*3/uL (1.4-7.4); Neutrophils % 72.9 % (38.7-73.9); Platelet Count 183 T/CUMM (130-400); Red Blood Count 3.35 MC/CUMM (3.8-5.5); Red Cell Distribution Width 15.5 % (9.3-17.3); White Blood Count 13.3 T/CUMM (4-12)
[2018-07-21 10:07] LABS: Band Neutrophils 3 % (0-10); Eosinophils 1 % (0-10); Lymphocytes 11 % (20-55); Segmented Neutrophils 68 % (50-85); Total Cells Counted 100
[2018-07-21 10:08] LABS: Alanine Aminotransferase 22 U/L (13-56); Albumin 2.7 G/DL (3.4-5.0); Alkaline Phosphatase 100 U/L (45-117); Aspartate Amino Transferase 23 U/L (0-37); Bilirubin,Total < 0.39 MG/DL (0.2-1.0); Blood Urea Nitrogen 20 MG/DL (7-18); Calcium 9.1 MG/DL (8.5-10.1); Glucose 103 MG/DL (74-106); Hypochromasia 1+; Microcytosis 1+; Osmolality,Calculated 283.3 MOS/KG (273-304); Platelet Estimate Normal; Potassium 3.1 MMOL/L (3.5-5.1); Sodium 141 MMOL/L (136-145); Total Protein 6.4 G/DL (6.4-8.3); Uric Acid 9.2 MG/DL (2.6-6.0)
[2018-07-21] MEDS: ASCORBIC ACID 500 MG TABLET PO SCH ×2 (10:43→20:42)
[2018-07-21] MEDS: FLUTICASONE 50 MCG NASAL SPRAY 16 GM BOTTLE BOTH NARES SCH (10:43)
[2018-07-21] MEDS: CARVEDILOL 6.25 MG TABLET PO SCH ×2 (10:43→20:42)
[2018-07-21] MEDS: FUROSEMIDE 20 MG TABLET PO SCH (10:43)
[2018-07-21] MEDS: MULTIVITAMIN (CENTRUM) TABLET PO SCH (10:43)
[2018-07-21] MEDS: CETIRIZINE 10 MG TABLET PO SCH (10:43)
[2018-07-21] MEDS: MEROPENEM 1,000 MG in SODIUM CHLORIDE 0.9% 100 ML IV SCH ×2 (10:43→22:03)
[2018-07-21] MEDS: POTASSIUM CHLORIDE 8 MEQ CAPSULE PO SCH (10:43)
[2018-07-21] MEDS: ACYCLOVIR 200 MG CAPSULE PO SCH ×2 (10:47→20:42)
[2018-07-21] MEDS: VANCOMYCIN INJ 750 MG in SODIUM CHLORIDE 0.9% 250 ML IV SCH ×2 (11:25→20:46)
[2018-07-21 18:05] LABS: Apearance,Urine CLEAR (Clear); Bilirubin,Urine Negative (Negative); Blood, Urine Negative (Negative); Glucose,Urine (UA) Negative (Negative); Ketones,Urine Negative (Negative); Mucus,Urine Occasional /LPF (Occasional); Nitrite,Urine Negative (Negative); Protein,Urine 30 MG/DL; RBC,Urine 2 /HPF (0-4); Urine Color Straw (Yellow); Urine Specific Gravity 1.006 (1.001-1.035); Urine Urobilinogen < 2.0 EU/DL (0.2-1.0); WBC,Urine 6 /HPF (0-6)
[2018-07-21] MEDS ORDERED: BIOTIN 10000 MCG PO SCH (21:00)
[2018-07-21] MEDS: CALCIUM (CARBONATE)/VITAMIN D 600 MG-400 UNIT TABLET PO SCH (22:02)
[2018-07-22] MEDS: ACETAMINOPHEN 325 MG TABLET PO PRN ×2 (01:11→22:40)
[2018-07-22 05:12] LABS: Basophils % 0.3 % (0.0-0.8); Eosinophils # 0.2 10*3/uL (0.0-0.87); Eosinophils % 1.6 % (0.00-10.9); Hematocrit 32.8 VOL% (35.7-47.0); Hemoglobin 11.1 GM/DL (12.0-16.0); Immature Granulocytes % 1.2 %; Immature Granulocytes Absolute 0.15 #; Lymphocytes # 1.4 10*3/uL (1.4-4.0); Lymphocytes % 11.1 % (21.3-54.2); Mean Corpuscular HGB Conc 33.8 GM/DL (32-36); Mean Corpuscular Hemoglobin 35 PG (27-34); Mean Corpuscular Volume 103.1 FL (87-102); Mean Platelet Volume 10.4 FL (9.6-12.0); Monocytes % 15.5 % (1.7-12.7); Neutrophils # 9.1 10*3/uL (1.4-7.4); Neutrophils % 70.3 % (38.7-73.9); Platelet Count 191 T/CUMM (130-400); Red Blood Count 3.18 MC/CUMM (3.8-5.5); Red Cell Distribution Width 15.4 % (9.3-17.3); White Blood Count 12.9 T/CUMM (4-12)
[2018-07-22 05:30] LABS: Albumin 2.7 G/DL (3.4-5.0); Bilirubin,Total 0.5 MG/DL (0.2-1.0); Calcium 9.2 MG/DL (8.5-10.1); Osmolality,Calculated 284.3 MOS/KG (273-304); Potassium 3.6 MMOL/L (3.5-5.1); Total Protein 6.4 G/DL (6.4-8.3)
[2018-07-22] MEDS: MEROPENEM 1,000 MG in SODIUM CHLORIDE 0.9% 100 ML IV SCH ×2 (09:26→22:20)
[2018-07-22] MEDS: MULTIVITAMIN (CENTRUM) TABLET PO SCH (09:51)
[2018-07-22] MEDS: CARVEDILOL 6.25 MG TABLET PO SCH ×2 (09:52→20:43)
[2018-07-22] MEDS: FUROSEMIDE 20 MG TABLET PO SCH (09:53)
[2018-07-22] MEDS: FLUTICASONE 50 MCG NASAL SPRAY 16 GM BOTTLE BOTH NARES SCH (09:53)
[2018-07-22] MEDS: POTASSIUM CHLORIDE 8 MEQ CAPSULE PO SCH (09:54)
[2018-07-22] MEDS: ACYCLOVIR 200 MG CAPSULE PO SCH ×2 (09:55→20:43)
[2018-07-22] MEDS: PANTOPRAZOLE 40 MG TABLET PO SCH (09:55)
[2018-07-22] MEDS: ASCORBIC ACID 500 MG TABLET PO SCH ×2 (09:55→20:43)
[2018-07-22] MEDS: CETIRIZINE 10 MG TABLET PO SCH (09:56)
[2018-07-22] MEDS: VANCOMYCIN INJ 750 MG in SODIUM CHLORIDE 0.9% 250 ML IV SCH ×2 (10:27→20:05)
[2018-07-22 11:58] LABS: PT Patient Result 10.2 SECS
[2018-07-22 16:08] LABS: Total Protein,Body Fluid 4.5 G/DL
[2018-07-22 17:52] LABS: Lymphocytes,Pleural Fluid 91 %; Monocytes,Pleural Fluid 1 %; Neutrophils,Pleural Fluid 8 %; RBC,Pleural Fluid 1089 T/CUMM
[2018-07-22] MEDS: CALCIUM (CARBONATE)/VITAMIN D 600 MG-400 UNIT TABLET PO SCH (20:44)
[2018-07-23 05:25] LABS: Basophils % 0.4 % (0.0-0.8); Eosinophils # 0.3 10*3/uL (0.0-0.87); Eosinophils % 2.2 % (0.00-10.9); Hematocrit 33.9 VOL% (35.7-47.0); Hemoglobin 11.2 GM/DL (12.0-16.0); Immature Granulocytes % 1.8 %; Lymphocytes # 1.2 10*3/uL (1.4-4.0); Lymphocytes % 10.7 % (21.3-54.2); Mean Corpuscular Hemoglobin 34 PG (27-34); Mean Corpuscular Volume 103.7 FL (87-102); Mean Platelet Volume 10.4 FL (9.6-12.0); Monocytes # 1.9 10*3/uL (0.11-0.8); Monocytes % 17.1 % (1.7-12.7); Neutrophils # 7.6 10*3/uL (1.4-7.4); Neutrophils % 67.8 % (38.7-73.9); Platelet Count 206 T/CUMM (130-400); Red Blood Count 3.27 MC/CUMM (3.8-5.5); Red Cell Distribution Width 15.3 % (9.3-17.3); White Blood Count 11.2 T/CUMM (4-12)
[2018-07-23 05:56] LABS: Calcium 8.9 MG/DL (8.5-10.1); Osmolality,Calculated 288.1 MOS/KG (273-304); Potassium 3.7 MMOL/L (3.5-5.1)
[2018-07-23 07:01] LABS: Anisocytosis 2+; Band Neutrophils 3 % (0-10); Lymphocytes 10 % (20-55); Macrocytosis 2+; Metamyelocytes 3 %; Platelet Estimate Normal; Polychromasia Few; Segmented Neutrophils 70 % (50-85); Total Cells Counted 100
[2018-07-23] MEDS: FLUTICASONE 50 MCG NASAL SPRAY 16 GM BOTTLE BOTH NARES SCH (08:22)
[2018-07-23] MEDS: FUROSEMIDE 20 MG TABLET PO SCH (08:22)
[2018-07-23] MEDS: PANTOPRAZOLE 40 MG TABLET PO SCH (08:22)
[2018-07-23] MEDS: ACYCLOVIR 200 MG CAPSULE PO SCH ×2 (08:22→20:44)
[2018-07-23] MEDS: CETIRIZINE 10 MG TABLET PO SCH (08:22)
[2018-07-23] MEDS: ASCORBIC ACID 500 MG TABLET PO SCH ×2 (08:22→20:45)
[2018-07-23] MEDS: MULTIVITAMIN (CENTRUM) TABLET PO SCH (08:22)
[2018-07-23] MEDS: CARVEDILOL 6.25 MG TABLET PO SCH ×2 (08:22→20:44)
[2018-07-23] MEDS: POTASSIUM CHLORIDE 8 MEQ CAPSULE PO SCH (08:22)
[2018-07-23] MEDS: VANCOMYCIN INJ 750 MG in SODIUM CHLORIDE 0.9% 250 ML IV SCH (08:31)
[2018-07-23] MEDS: MEROPENEM 1,000 MG in SODIUM CHLORIDE 0.9% 100 ML IV SCH ×2 (09:45→21:09)
[2018-07-23] MEDS ORDERED: ALBUTEROL/IPRATROPIUM 3 ML NEB RESP TX PRN (10:12)
[2018-07-23] MEDS: MAGNESIUM CHLORIDE 64 MG TABLET PO SCH ×2 (10:21→20:44)
[2018-07-23] MEDS: ACETAMINOPHEN 325 MG TABLET PO PRN ×2 (13:04→21:38)
[2018-07-23] MEDS: ALBUTEROL/IPRATROPIUM 3 ML NEB RESP TX SCH ×2 (13:36→19:25)
[2018-07-23] MEDS: CALCIUM (CARBONATE)/VITAMIN D 600 MG-400 UNIT TABLET PO SCH (20:45)
[2018-07-24] MEDS: ALBUTEROL/IPRATROPIUM 3 ML NEB RESP TX SCH ×4 (00:25→19:55)
[2018-07-24 05:53] LABS: Calcium 9.2 MG/DL (8.5-10.1); Osmolality,Calculated 283.3 MOS/KG (273-304); Potassium 3.7 MMOL/L (3.5-5.1)
[2018-07-24] MEDS: ACYCLOVIR 200 MG CAPSULE PO SCH ×2 (08:31→20:22)
[2018-07-24] MEDS: MAGNESIUM CHLORIDE 64 MG TABLET PO SCH ×2 (08:32→20:23)
[2018-07-24] MEDS: CETIRIZINE 10 MG TABLET PO SCH (08:32)
[2018-07-24] MEDS: FUROSEMIDE 20 MG TABLET PO SCH (08:32)
[2018-07-24] MEDS: PANTOPRAZOLE 40 MG TABLET PO SCH (08:32)
[2018-07-24] MEDS: ASCORBIC ACID 500 MG TABLET PO SCH ×2 (08:32→20:22)
[2018-07-24] MEDS: CARVEDILOL 6.25 MG TABLET PO SCH ×2 (08:32→20:22)
[2018-07-24] MEDS: POTASSIUM CHLORIDE 8 MEQ CAPSULE PO SCH (08:32)
[2018-07-24] MEDS: MULTIVITAMIN (CENTRUM) TABLET PO SCH (08:32)
[2018-07-24] MEDS: FLUTICASONE 50 MCG NASAL SPRAY 16 GM BOTTLE BOTH NARES SCH (08:33)
[2018-07-24] MEDS: ACETAMINOPHEN 325 MG TABLET PO PRN ×2 (08:33→19:38)
[2018-07-24] MEDS: MEROPENEM 1,000 MG in SODIUM CHLORIDE 0.9% 100 ML IV SCH ×2 (11:21→21:03)
[2018-07-24] MEDS: VANCOMYCIN INJ 1,000 MG in SODIUM CHLORIDE 0.9% 250 ML IV SCH (17:52)
[2018-07-24] MEDS: CALCIUM (CARBONATE)/VITAMIN D 600 MG-400 UNIT TABLET PO SCH (20:23)
[2018-07-25] MEDS: ALBUTEROL/IPRATROPIUM 3 ML NEB RESP TX SCH ×4 (00:22→19:53)
[2018-07-25 05:01] LABS: Basophils # 0.1 10*3/uL (0.0-0.2); Basophils % 0.5 % (0.0-0.8); Eosinophils # 0.3 10*3/uL (0.0-0.87); Eosinophils % 3.2 % (0.00-10.9); Hematocrit 35.1 VOL% (35.7-47.0); Hemoglobin 11.5 GM/DL (12.0-16.0); Immature Granulocytes % 3.8 %; Immature Granulocytes Absolute 0.37 #; Lymphocytes % 10.2 % (21.3-54.2); Mean Corpuscular HGB Conc 32.8 GM/DL (32-36); Mean Corpuscular Hemoglobin 35 PG (27-34); Mean Corpuscular Volume 105.4 FL (87-102); Mean Platelet Volume 10.7 FL (9.6-12.0); Monocytes # 1.7 10*3/uL (0.11-0.8); Monocytes % 17.3 % (1.7-12.7); NRBC # 0.02 10*3/uL; Neutrophils # 6.3 10*3/uL (1.4-7.4); Platelet Count 263 T/CUMM (130-400); Red Blood Count 3.33 MC/CUMM (3.8-5.5); Red Cell Distribution Width 15.1 % (9.3-17.3); White Blood Count 9.6 T/CUMM (4-12)
[2018-07-25 05:37] LABS: Albumin 2.6 G/DL (3.4-5.0); Bilirubin,Total 0.7 MG/DL (0.2-1.0); Calcium 10.1 MG/DL (8.5-10.1); Osmolality,Calculated 282.5 MOS/KG (273-304); Potassium 3.4 MMOL/L (3.5-5.1); Total Protein 6.7 G/DL (6.4-8.3)
[2018-07-25 06:40] LABS: Eosinophils 2 % (0-10); Lymphocytes 9 % (20-55); Total Cells Counted 100
[2018-07-25 06:41] LABS: Anisocytosis 2+; Atypical Lymphocytes Few; Hypochromasia Slight; Macrocytosis 2+; Platelet Estimate Normal
[2018-07-25 06:42] LABS: Band Neutrophils 7 % (0-10); Metamyelocytes 4 %; Myelocytes 1 %; Segmented Neutrophils 64 % (50-85)
[2018-07-25] MEDS: CARVEDILOL 6.25 MG TABLET PO SCH ×2 (08:23→20:27)
[2018-07-25] MEDS: FUROSEMIDE 20 MG TABLET PO SCH (08:23)
[2018-07-25] MEDS: PANTOPRAZOLE 40 MG TABLET PO SCH (08:24)
[2018-07-25] MEDS: ASCORBIC ACID 500 MG TABLET PO SCH ×2 (08:24→20:27)
[2018-07-25] MEDS: FLUTICASONE 50 MCG NASAL SPRAY 16 GM BOTTLE BOTH NARES SCH (08:24)
[2018-07-25] MEDS: POTASSIUM CHLORIDE 8 MEQ CAPSULE PO SCH (08:24)
[2018-07-25] MEDS: MULTIVITAMIN (CENTRUM) TABLET PO SCH (08:24)
[2018-07-25] MEDS: CETIRIZINE 10 MG TABLET PO SCH (08:24)
[2018-07-25] MEDS: MAGNESIUM CHLORIDE 64 MG TABLET PO SCH ×2 (08:24→20:27)
[2018-07-25] MEDS: ACYCLOVIR 200 MG CAPSULE PO SCH ×2 (08:24→20:27)
[2018-07-25] MEDS: VANCOMYCIN INJ 1,000 MG in SODIUM CHLORIDE 0.9% 250 ML IV SCH (08:25)
[2018-07-25] MEDS: MEROPENEM 1,000 MG in SODIUM CHLORIDE 0.9% 100 ML IV SCH ×2 (10:17→21:00)
[2018-07-25] MEDS: CALCIUM (CARBONATE)/VITAMIN D 600 MG-400 UNIT TABLET PO SCH (20:27)
[2018-07-26] MEDS: ALBUTEROL/IPRATROPIUM 3 ML NEB RESP TX SCH ×4 (01:00→19:35)
[2018-07-26 04:55] LABS: Basophils % 0.3 % (0.0-0.8); Eosinophils # 0.3 10*3/uL (0.0-0.87); Eosinophils % 2.5 % (0.00-10.9); Hematocrit 32.9 VOL% (35.7-47.0); Hemoglobin 10.8 GM/DL (12.0-16.0); Immature Granulocytes Absolute 0.34 #; Lymphocytes # 1.5 10*3/uL (1.4-4.0); Lymphocytes % 12.8 % (21.3-54.2); Mean Corpuscular HGB Conc 32.8 GM/DL (32-36); Mean Corpuscular Hemoglobin 34 PG (27-34); Mean Corpuscular Volume 104.4 FL (87-102); Mean Platelet Volume 10.6 FL (9.6-12.0); Monocytes # 2.1 10*3/uL (0.11-0.8); Monocytes % 18.3 % (1.7-12.7); NRBC # 0.02 10*3/uL; Neutrophils # 7.3 10*3/uL (1.4-7.4); Neutrophils % 63.1 % (38.7-73.9); Platelet Count 271 T/CUMM (130-400); Red Blood Count 3.15 MC/CUMM (3.8-5.5); White Blood Count 11.5 T/CUMM (4-12)
[2018-07-26 05:23] LABS: Band Neutrophils 4 % (0-10); Eosinophils 5 % (0-10); Hypochromasia 1+; Lymphocytes 10 % (20-55); Nucleated Red Blood Cells 1 (0-5); Platelet Estimate Adequate; Segmented Neutrophils 63 % (50-85); Total Cells Counted 100
[2018-07-26 05:24] LABS: Macrocytosis Slight
[2018-07-26 05:34] LABS: Albumin 2.5 G/DL (3.4-5.0); Bilirubin,Total 0.9 MG/DL (0.2-1.0); Calcium 9.6 MG/DL (8.5-10.1); Osmolality,Calculated 283.4 MOS/KG (273-304); Potassium 3.9 MMOL/L (3.5-5.1); Total Protein 6.6 G/DL (6.4-8.3)
[2018-07-26] MEDS: MEROPENEM 1,000 MG in SODIUM CHLORIDE 0.9% 100 ML IV SCH ×2 (11:02→22:19)
[2018-07-26] MEDS: CETIRIZINE 10 MG TABLET PO SCH (11:03)
[2018-07-26] MEDS: MULTIVITAMIN (CENTRUM) TABLET PO SCH (11:03)
[2018-07-26] MEDS: PANTOPRAZOLE 40 MG TABLET PO SCH (11:03)
[2018-07-26] MEDS: POTASSIUM CHLORIDE 8 MEQ CAPSULE PO SCH (11:03)
[2018-07-26] MEDS: ACYCLOVIR 200 MG CAPSULE PO SCH ×2 (11:03→21:33)
[2018-07-26] MEDS: MAGNESIUM CHLORIDE 64 MG TABLET PO SCH ×2 (11:03→21:32)
[2018-07-26] MEDS: CARVEDILOL 6.25 MG TABLET PO SCH ×2 (11:04→21:33)
[2018-07-26] MEDS: FUROSEMIDE 20 MG TABLET PO SCH (11:04)
[2018-07-26] MEDS: FLUTICASONE 50 MCG NASAL SPRAY 16 GM BOTTLE BOTH NARES SCH (11:04)
[2018-07-26] MEDS: VANCOMYCIN INJ 1,000 MG in SODIUM CHLORIDE 0.9% 250 ML IV SCH (11:31)
[2018-07-26] MEDS: ASCORBIC ACID 500 MG TABLET PO SCH ×2 (11:31→21:33)
[2018-07-26] MEDS: ACETAMINOPHEN 325 MG TABLET PO PRN (19:41)
[2018-07-26] MEDS: CALCIUM (CARBONATE)/VITAMIN D 600 MG-400 UNIT TABLET PO SCH (21:32)
[2018-07-27] MEDS: ALBUTEROL/IPRATROPIUM 3 ML NEB RESP TX SCH ×4 (00:24→19:27)
[2018-07-27 05:15] LABS: Basophils # 0.1 10*3/uL (0.0-0.2); Basophils % 0.5 % (0.0-0.8); Eosinophils # 0.3 10*3/uL (0.0-0.87); Eosinophils % 3.1 % (0.00-10.9); Hematocrit 34.1 VOL% (35.7-47.0); Hemoglobin 11.3 GM/DL (12.0-16.0); Immature Granulocytes % 3.9 %; Immature Granulocytes Absolute 0.41 #; Lymphocytes % 9.6 % (21.3-54.2); Mean Corpuscular HGB Conc 33.1 GM/DL (32-36); Mean Corpuscular Hemoglobin 34 PG (27-34); Mean Corpuscular Volume 102.4 FL (87-102); Mean Platelet Volume 10.6 FL (9.6-12.0); Monocytes # 1.8 10*3/uL (0.11-0.8); Monocytes % 17.2 % (1.7-12.7); NRBC # 0.02 10*3/uL; Neutrophils % 65.7 % (38.7-73.9); Platelet Count 304 T/CUMM (130-400); Red Blood Count 3.33 MC/CUMM (3.8-5.5); Red Cell Distribution Width 14.8 % (9.3-17.3); White Blood Count 10.6 T/CUMM (4-12)
[2018-07-27 05:46] LABS: Band Neutrophils 5 % (0-10); Eosinophils 2 % (0-10); Lymphocytes 7 % (20-55); Metamyelocytes 2 %; Platelet Estimate Increased; Segmented Neutrophils 68 % (50-85); Total Cells Counted 100
[2018-07-27 06:03] LABS: Albumin 2.5 G/DL (3.4-5.0); Bilirubin,Total 0.8 MG/DL (0.2-1.0); Calcium 10.5 MG/DL (8.5-10.1); Osmolality,Calculated 285.4 MOS/KG (273-304); Potassium 3.9 MMOL/L (3.5-5.1); Total Protein 6.8 G/DL (6.4-8.3)
[2018-07-27] MEDS: MEROPENEM 1,000 MG in SODIUM CHLORIDE 0.9% 100 ML IV SCH ×2 (09:11→22:05)
[2018-07-27] MEDS: ACYCLOVIR 200 MG CAPSULE PO SCH ×2 (09:13→20:47)
[2018-07-27] MEDS: POTASSIUM CHLORIDE 8 MEQ CAPSULE PO SCH (09:13)
[2018-07-27] MEDS: MULTIVITAMIN (CENTRUM) TABLET PO SCH (09:13)
[2018-07-27] MEDS: ASCORBIC ACID 500 MG TABLET PO SCH ×2 (09:13→20:47)
[2018-07-27] MEDS: CETIRIZINE 10 MG TABLET PO SCH (09:13)
[2018-07-27] MEDS: CARVEDILOL 6.25 MG TABLET PO SCH ×2 (09:13→20:47)
[2018-07-27] MEDS: MAGNESIUM CHLORIDE 64 MG TABLET PO SCH ×2 (09:13→20:47)
[2018-07-27] MEDS: FLUTICASONE 50 MCG NASAL SPRAY 16 GM BOTTLE BOTH NARES SCH (09:14)
[2018-07-27] MEDS: PANTOPRAZOLE 40 MG TABLET PO SCH (09:14)
[2018-07-27] MEDS: FUROSEMIDE 20 MG TABLET PO SCH (09:14)
[2018-07-27] MEDS: ACETAMINOPHEN 325 MG TABLET PO PRN (19:10)
[2018-07-27] MEDS: CALCIUM (CARBONATE)/VITAMIN D 600 MG-400 UNIT TABLET PO SCH (20:47)
[2018-07-28] MEDS: ALBUTEROL/IPRATROPIUM 3 ML NEB RESP TX SCH ×2 (00:17→07:11)
[2018-07-28 05:40] LABS: Basophils # 0.1 10*3/uL (0.0-0.2); Basophils % 0.7 % (0.0-0.8); Eosinophils # 0.4 10*3/uL (0.0-0.87); Eosinophils % 3.1 % (0.00-10.9); Hematocrit 34.6 VOL% (35.7-47.0); Hemoglobin 11.3 GM/DL (12.0-16.0); Immature Granulocytes % 4.3 %; Lymphocytes # 1.2 10*3/uL (1.4-4.0); Mean Corpuscular HGB Conc 32.7 GM/DL (32-36); Mean Corpuscular Hemoglobin 34 PG (27-34); Mean Corpuscular Volume 103.3 FL (87-102); Mean Platelet Volume 10.6 FL (9.6-12.0); Monocytes % 17.5 % (1.7-12.7); NRBC # 0.04 10*3/uL; Neutrophils # 7.4 10*3/uL (1.4-7.4); Neutrophils % 64.4 % (38.7-73.9); Platelet Count 349 T/CUMM (130-400); Red Blood Count 3.35 MC/CUMM (3.8-5.5); Red Cell Distribution Width 14.8 % (9.3-17.3); White Blood Count 11.5 T/CUMM (4-12)
[2018-07-28 06:09] LABS: Band Neutrophils 3 % (0-10); Eosinophils 6 % (0-10); Hypochromasia 1+; Lymphocytes 8 % (20-55); Macrocytosis Slight; Platelet Estimate Adequate; Segmented Neutrophils 69 % (50-85); Total Cells Counted 100
[2018-07-28 06:12] LABS: Albumin 2.6 G/DL (3.4-5.0); Bilirubin,Total 0.4 MG/DL (0.2-1.0); Calcium 10.1 MG/DL (8.5-10.1); Osmolality,Calculated 290.1 MOS/KG (273-304); Potassium 4.4 MMOL/L (3.5-5.1); Total Protein 6.8 G/DL (6.4-8.3)
[2018-07-28] MEDS: MEROPENEM 1,000 MG in SODIUM CHLORIDE 0.9% 100 ML IV SCH (09:17)
[2018-07-28] MEDS: MULTIVITAMIN (CENTRUM) TABLET PO SCH (09:20)
[2018-07-28] MEDS: CARVEDILOL 6.25 MG TABLET PO SCH (09:20)
[2018-07-28] MEDS: CETIRIZINE 10 MG TABLET PO SCH (09:20)
[2018-07-28] MEDS: PANTOPRAZOLE 40 MG TABLET PO SCH (09:20)
[2018-07-28] MEDS: ACYCLOVIR 200 MG CAPSULE PO SCH (09:20)
[2018-07-28] MEDS: POTASSIUM CHLORIDE 8 MEQ CAPSULE PO SCH (09:20)
[2018-07-28] MEDS: FUROSEMIDE 20 MG TABLET PO SCH (09:21)
[2018-07-28] MEDS: ASCORBIC ACID 500 MG TABLET PO SCH (09:21)
[2018-07-28] MEDS: MAGNESIUM CHLORIDE 64 MG TABLET PO SCH (09:24)
[2018-07-28] MEDS: FLUTICASONE 50 MCG NASAL SPRAY 16 GM BOTTLE BOTH NARES SCH (09:25)
[2018-07-28] MEDS ORDERED: BUDESONIDE/FORMOTEROL 160-4.5 INHALER 6 GM INH SCH (09:30)
[2018-07-28 11:32] VITALS: BP 109/72
== END 2018-07-28 13:10 | disposition home or self-care (01) | DRG 197 ==
LOC: INTOOBSV 18:04 → N.4E 18:04
PROVIDERS: ADMIT Specialist; ATTEND Specialist

== ENCOUNTER 2021-03-07 13:03 | Inpatient (IN) ==
[2021-03-07] MEDS ORDERED: DEXTROSE 50% 25 GM/50 ML VIAL IV PRN (16:57)
[2021-03-07] MEDS ORDERED: GLUCAGON 1 MG VIAL IM PRN (16:57)
[2021-03-07] MEDS ORDERED: ACETAMINOPHEN 325 MG TABLET PO PRN (16:57)
[2021-03-07] MEDS ORDERED: ONDANSETRON 4 MG/2 ML VIAL IV PRN (16:57)
[2021-03-07] MEDS ORDERED: ONDANSETRON 4 MG TABLET PO PRN (17:03)
[2021-03-07] MEDS ORDERED: CEFEPIME 2,000 MG in SODIUM CHLORIDE 0.9% 100 ML IV SCH (20:00)
[2021-03-07] MEDS ORDERED: FILGRASTIM 300 MCG/0.5 ML SUBCUT SCH (21:00)
[2021-03-07] MEDS: SODIUM CHLORIDE 0.45% 1,000 ML IV SCH (21:32)
[2021-03-07] MEDS: CEFEPIME 1,000 MG in SODIUM CHLORIDE 0.9% 100 ML IV SCH (21:33)
[2021-03-07] MEDS: GABAPENTIN 300 MG CAPSULE PO SCH (21:34)
[2021-03-07] MEDS: carvediloL 6.25 MG TABLET PO SCH (21:34)
[2021-03-07] MEDS: ASCORBIC ACID 500 MG TABLET PO SCH (21:34)
[2021-03-07] MEDS: CIPROFLOXACIN 500 MG TABLET PO SCH (21:34)
[2021-03-07] MEDS: ACYCLOVIR 200 MG CAPSULE PO SCH (21:35)
[2021-03-07] MEDS: FILGRASTIM-SNDZ 300 MCG/0.5 ML SYRINGE SUBCUT SCH (21:36)
[2021-03-07] MEDS: MAGNESIUM CHLORIDE 64 MG TABLET PO SCH (22:03)
[2021-03-08] MEDS: CEFEPIME 1,000 MG in SODIUM CHLORIDE 0.9% 100 ML IV SCH ×2 (04:55→18:16)
[2021-03-08 05:32] LABS: Basophils % 0.7 % (0.0-0.8); Eosinophils # 0.1 10*3/uL (0.0-0.87); Eosinophils % 5.3 % (0.00-10.9); Hematocrit 25.7 VOL% (35.7-47.0); Hemoglobin 8.5 GM/DL (12.0-16.0); Immature Granulocytes Absolute 0.21 #; Lymphocytes # 0.5 10*3/uL (1.4-4.0); Lymphocytes % 30.7 % (21.3-54.2); Mean Corpuscular HGB Conc 33.1 GM/DL (32-36); Mean Corpuscular Volume 98.5 FL (87-102); Neutrophils % 31.3 % (38.7-73.9); Red Blood Count 2.61 MC/CUMM (3.8-5.5); Red Cell Distribution Width 16.6 % (9.3-17.3); White Blood Count 1.5 T/CUMM (4-12)
[2021-03-08 05:33] LABS: Platelet Count 33 T/CUMM (130-400)
[2021-03-08 05:55] LABS: Calcium 8.9 MG/DL (8.5-10.1); Osmolality,Calculated 288.4 MOS/KG (273-304); Potassium 3.7 MMOL/L (3.5-5.1)
[2021-03-08 05:59] LABS: Albumin 2.7 G/DL (3.4-5.0); Bilirubin,Total 0.5 MG/DL (0.2-1.0); Osmolality,Calculated 291.3 MOS/KG (273-304); Potassium 3.8 MMOL/L (3.5-5.1); Total Protein 6.1 G/DL (6.4-8.2)
[2021-03-08 06:13] LABS: Atypical Lymphocytes Few; Band Neutrophils 5 % (0-10); Eosinophils 5 % (0-10); Lymphocytes 43 % (20-55); Metamyelocytes 2 %; Nucleated Red Blood Cells 3 (0-5); Promyelocytes 3 %; Segmented Neutrophils 26 % (50-85); Total Cells Counted 100; Toxic Granulation 1+
[2021-03-08 06:14] LABS: Anisocytosis 1+; Hypochromasia 1+; Microcytosis 1+; Ovalocytes Slight
[2021-03-08 06:15] LABS: Platelet Estimate Decreased
[2021-03-08] MEDS ORDERED: PANTOPRAZOLE 40 MG TABLET PO SCH (09:00)
[2021-03-08] MEDS ORDERED: NON-FORMULARY MEDICATION (Multivitamin Tablet) PO SCH (09:00)
[2021-03-08] MEDS: FILGRASTIM-SNDZ 300 MCG/0.5 ML SYRINGE SUBCUT SCH (09:35)
[2021-03-08] MEDS: PANTOPRAZOLE 40 MG TABLET PO SCH (09:45)
[2021-03-08] MEDS: carvediloL 6.25 MG TABLET PO SCH ×2 (09:45→20:58)
[2021-03-08] MEDS: CETIRIZINE 10 MG TABLET PO SCH (09:47)
[2021-03-08] MEDS: BOSUTINIB 100 MG PO SCH (09:47)
[2021-03-08] MEDS: FOLIC ACID 1 MG TABLET PO SCH (09:48)
[2021-03-08] MEDS: CYANOCOBALAMIN 500 MCG TABLET PO SCH (09:49)
[2021-03-08] MEDS: GABAPENTIN 300 MG CAPSULE PO SCH ×2 (09:49→20:57)
[2021-03-08] MEDS: ASCORBIC ACID 500 MG TABLET PO SCH ×2 (09:50→20:58)
[2021-03-08] MEDS: MULTIVITAMIN (BEROCCA) TABLET PO SCH (09:50)
[2021-03-08] MEDS: MAGNESIUM CHLORIDE 64 MG TABLET PO SCH ×2 (09:51→20:57)
[2021-03-08] MEDS: allopurinoL 100 MG TABLET PO SCH (09:51)
[2021-03-08] MEDS: FLUTICASONE 50 MCG NASAL SPRAY 16 GM BOTTLE BOTH NARES SCH (09:52)
[2021-03-08] MEDS: SODIUM CHLORIDE 0.45% 1,000 ML IV SCH (16:05)
[2021-03-08] MEDS: CALCIUM (CARBONATE)/VITAMIN D 600 MG-400 UNIT TABLET PO SCH (18:13)
[2021-03-08] MEDS: ACYCLOVIR 200 MG CAPSULE PO SCH (18:13)
[2021-03-08] MEDS ORDERED: FILGRASTIM-SNDZ 300 MCG/0.5 ML SYRINGE SUBCUT SCH (19:00)
[2021-03-08] MEDS: CIPROFLOXACIN 500 MG TABLET PO SCH (21:13)
[2021-03-08] MEDS ORDERED: ALUMINUM/MAGNES/SIMETH MAX STR 30 ML UDCUP PO PRN (21:50)
[2021-03-09 05:06] LABS: Basophils # 0.1 10*3/uL (0.0-0.2); Basophils % 1.4 % (0.0-0.8); Eosinophils # 0.1 10*3/uL (0.0-0.87); Eosinophils % 1.4 % (0.00-10.9); Hematocrit 26.5 VOL% (35.7-47.0); Hemoglobin 8.4 GM/DL (12.0-16.0); Immature Granulocytes % 20.2 %; Immature Granulocytes Absolute 1.29 #; Lymphocytes # 0.7 10*3/uL (1.4-4.0); Lymphocytes % 10.2 % (21.3-54.2); Mean Corpuscular HGB Conc 31.7 GM/DL (32-36); Mean Corpuscular Volume 101.1 FL (87-102); Mean Platelet Volume 12.1 FL (9.6-12.0); Monocytes % 16.1 % (1.7-12.7); NRBC # 0.04 10*3/uL; Neutrophils % 50.7 % (38.7-73.9); Platelet Count 43 T/CUMM (130-400); Red Blood Count 2.62 MC/CUMM (3.8-5.5); Red Cell Distribution Width 16.5 % (9.3-17.3); White Blood Count 6.4 T/CUMM (4-12)
[2021-03-09] MEDS: CEFEPIME 1,000 MG in SODIUM CHLORIDE 0.9% 100 ML IV SCH ×2 (05:15→18:24)
[2021-03-09 05:25] LABS: Calcium 9.4 MG/DL (8.5-10.1)
[2021-03-09 06:38] LABS: Band Neutrophils 10 % (0-10); Lymphocytes 12 % (20-55); Metamyelocytes 14 %; Myelocytes 3 %; Promyelocytes 3 %; Segmented Neutrophils 45 % (50-85); Total Cells Counted 100
[2021-03-09 06:47] LABS: Platelet Estimate Decreased
[2021-03-09 06:48] LABS: Anisocytosis 1+; Polychromasia Few
[2021-03-09] MEDS: GABAPENTIN 300 MG CAPSULE PO SCH ×2 (09:29→21:40)
[2021-03-09] MEDS: FOLIC ACID 1 MG TABLET PO SCH (09:29)
[2021-03-09] MEDS: FILGRASTIM-SNDZ 300 MCG/0.5 ML SYRINGE SUBCUT SCH (09:29)
[2021-03-09] MEDS: CETIRIZINE 10 MG TABLET PO SCH (09:30)
[2021-03-09] MEDS: carvediloL 6.25 MG TABLET PO SCH (09:30)
[2021-03-09] MEDS: MAGNESIUM CHLORIDE 64 MG TABLET PO SCH ×2 (09:30→21:41)
[2021-03-09] MEDS: allopurinoL 100 MG TABLET PO SCH (09:30)
[2021-03-09] MEDS: MULTIVITAMIN (BEROCCA) TABLET PO SCH (09:30)
[2021-03-09] MEDS: CYANOCOBALAMIN 500 MCG TABLET PO SCH (09:30)
[2021-03-09] MEDS: ASCORBIC ACID 500 MG TABLET PO SCH ×2 (09:30→21:41)
[2021-03-09] MEDS: PANTOPRAZOLE 40 MG TABLET PO SCH (09:30)
[2021-03-09] MEDS: FLUTICASONE 50 MCG NASAL SPRAY 16 GM BOTTLE BOTH NARES SCH (09:31)
[2021-03-09] MEDS: BOSUTINIB 100 MG PO SCH (10:14)
[2021-03-09] MEDS: CALCIUM (CARBONATE)/VITAMIN D 600 MG-400 UNIT TABLET PO SCH (18:23)
[2021-03-09] MEDS: ACYCLOVIR 200 MG CAPSULE PO SCH (18:23)
[2021-03-09] MEDS: SODIUM CHLORIDE 0.45% 1,000 ML IV SCH (19:34)
[2021-03-09] MEDS: carvediloL 3.125 MG TABLET PO SCH (21:42)
[2021-03-10 05:23] LABS: Basophils % 0.1 % (0.0-0.8); Eosinophils # 0.1 10*3/uL (0.0-0.87); Eosinophils % 0.6 % (0.00-10.9); Hematocrit 25.6 VOL% (35.7-47.0); Hemoglobin 8.3 GM/DL (12.0-16.0); Immature Granulocytes % 21.2 %; Immature Granulocytes Absolute 4.05 #; Lymphocytes % 5.1 % (21.3-54.2); Mean Corpuscular HGB Conc 32.4 GM/DL (32-36); Mean Corpuscular Volume 101.2 FL (87-102); Mean Platelet Volume 12.1 FL (9.6-12.0); Monocytes % 14.1 % (1.7-12.7); NRBC # 0.09 10*3/uL; Neutrophils % 58.9 % (38.7-73.9); Platelet Count 60 T/CUMM (130-400); Red Blood Count 2.53 MC/CUMM (3.8-5.5); Red Cell Distribution Width 16.7 % (9.3-17.3); White Blood Count 19.1 T/CUMM (4-12)
[2021-03-10 05:34] LABS: Calcium 9.2 MG/DL (8.5-10.1); Potassium 4.1 MMOL/L (3.5-5.1)
[2021-03-10] MEDS: CEFEPIME 1,000 MG in SODIUM CHLORIDE 0.9% 100 ML IV SCH ×2 (06:07→18:17)
[2021-03-10] MEDS: ASCORBIC ACID 500 MG TABLET PO SCH ×2 (08:33→20:53)
[2021-03-10 08:36] LABS: Lymphocytes 8 % (20-55); Metamyelocytes 14 %; Myelocytes 4 %; Nucleated Red Blood Cells 4 (0-5); Promyelocytes 1 %; Total Cells Counted 100
[2021-03-10] MEDS: BOSUTINIB 100 MG PO SCH (08:37)
[2021-03-10 08:38] LABS: Anisocytosis 1+; Band Neutrophils 9 % (0-10); Microcytosis 1+; Platelet Estimate Decreased; Segmented Neutrophils 48 % (50-85)
[2021-03-10] MEDS: MAGNESIUM CHLORIDE 64 MG TABLET PO SCH ×2 (08:38→20:53)
[2021-03-10] MEDS: FOLIC ACID 1 MG TABLET PO SCH (08:39)
[2021-03-10] MEDS: GABAPENTIN 300 MG CAPSULE PO SCH ×2 (08:39→20:53)
[2021-03-10] MEDS: carvediloL 3.125 MG TABLET PO SCH ×2 (08:39→20:53)
[2021-03-10] MEDS: allopurinoL 100 MG TABLET PO SCH (08:39)
[2021-03-10] MEDS: CYANOCOBALAMIN 500 MCG TABLET PO SCH (08:39)
[2021-03-10] MEDS: PANTOPRAZOLE 40 MG TABLET PO SCH (08:39)
[2021-03-10] MEDS: MULTIVITAMIN (BEROCCA) TABLET PO SCH (08:39)
[2021-03-10] MEDS: CETIRIZINE 10 MG TABLET PO SCH (08:39)
[2021-03-10] MEDS: FLUTICASONE 50 MCG NASAL SPRAY 16 GM BOTTLE BOTH NARES SCH (08:40)
[2021-03-10] MEDS: CALCIUM (CARBONATE)/VITAMIN D 600 MG-400 UNIT TABLET PO SCH (18:29)
[2021-03-10] MEDS: ACYCLOVIR 200 MG CAPSULE PO SCH (18:29)
[2021-03-11] MEDS: CEFEPIME 1,000 MG in SODIUM CHLORIDE 0.9% 100 ML IV SCH (05:40)
[2021-03-11 06:25] LABS: Eosinophils # 0.1 10*3/uL (0.0-0.87); Eosinophils % 0.4 % (0.00-10.9); Hematocrit 28.7 VOL% (35.7-47.0); Hemoglobin 9.1 GM/DL (12.0-16.0); Immature Granulocytes % 26.4 %; Lymphocytes # 1.1 10*3/uL (1.4-4.0); Lymphocytes % 4.8 % (21.3-54.2); Mean Corpuscular HGB Conc 31.7 GM/DL (32-36); Mean Corpuscular Volume 103.6 FL (87-102); Mean Platelet Volume 11.4 FL (9.6-12.0); Monocytes % 14.9 % (1.7-12.7); NRBC # 0.05 10*3/uL; Neutrophils % 53.5 % (38.7-73.9); Platelet Count 84 T/CUMM (130-400); Red Blood Count 2.77 MC/CUMM (3.8-5.5); Red Cell Distribution Width 16.8 % (9.3-17.3); White Blood Count 21.9 T/CUMM (4-12)
[2021-03-11 07:28] LABS: Calcium 9.8 MG/DL (8.5-10.1); Osmolality,Calculated 287.1 MOS/KG (273-304); Potassium 4.7 MMOL/L (3.5-5.1)
[2021-03-11 07:40] LABS: Band Neutrophils 17 % (0-10); Lymphocytes 17 % (20-55); Metamyelocytes 10 %; Myelocytes 3 %; Promyelocytes 4 %; Segmented Neutrophils 40 % (50-85); Total Cells Counted 100
[2021-03-11 07:41] LABS: Anisocytosis 2+; Atypical Lymphocytes Few; Platelet Estimate Decreased; Polychromasia Slight
[2021-03-11 07:42] LABS: Macrocytosis 1+
[2021-03-11] MEDS ORDERED: METHOTREXATE IV ONE (09:00)
[2021-03-11] MEDS ORDERED: CYTARABINE INTRATHEC ONE (09:00)
[2021-03-11] MEDS ORDERED: HYDROCORTISONE 100 MG VIAL INTRATHEC ONE (09:00)
[2021-03-11] MEDS ORDERED: HEPARIN 5,000 UNIT/1 ML VIAL ONE (10:07)
[2021-03-11] MEDS: ASCORBIC ACID 500 MG TABLET PO SCH (12:25)
[2021-03-11] MEDS: FOLIC ACID 1 MG TABLET PO SCH (12:25)
[2021-03-11] MEDS: allopurinoL 100 MG TABLET PO SCH (12:26)
[2021-03-11] MEDS: MAGNESIUM CHLORIDE 64 MG TABLET PO SCH (12:26)
[2021-03-11] MEDS: GABAPENTIN 300 MG CAPSULE PO SCH (12:26)
[2021-03-11] MEDS: CYANOCOBALAMIN 500 MCG TABLET PO SCH (12:26)
[2021-03-11] MEDS: MULTIVITAMIN (BEROCCA) TABLET PO SCH (12:26)
[2021-03-11] MEDS: PANTOPRAZOLE 40 MG TABLET PO SCH (12:26)
[2021-03-11] MEDS: CETIRIZINE 10 MG TABLET PO SCH (12:26)
[2021-03-11] MEDS: carvediloL 3.125 MG TABLET PO SCH (12:26)
[2021-03-11] MEDS: BOSUTINIB 100 MG PO SCH (12:37)
[2021-03-11 12:47] VITALS: BP 121/64
[2021-03-11 12:51] LABS: Appearance,CSF Clear; Lymphocytes,CSF 100 %; Red Blood Cell,CSF 7 C/CUMM; White Blood Cell,CSF 2 C/CUMM
== END 2021-03-11 16:50 | disposition home or self-care (01) | DRG 834 ==
LOC: N.ADMINP → SUATTDRO 13:36 → OBSVTOIN 13:36 → N.4E 15:12
PROVIDERS: ADMIT Internal Medicine; ATTEND Internal Medicine Geriatric Medicine

== ENCOUNTER 2021-03-26 13:45 | Inpatient (IN) ==
[2021-03-26] MEDS ORDERED: diphenhydrAMINE CAP 25 MG CAPSULE PO PRN (17:16)
[2021-03-26] MEDS ORDERED: TEMAZEPAM 7.5 MG CAPSULE PO PRN (17:16)
[2021-03-26] MEDS ORDERED: guaiFENesin 200 MG/10 ML UDCUP PO PRN (17:16)
[2021-03-26] MEDS ORDERED: LOPERAMIDE 2 MG CAPSULE PO PRN ×2 (17:16)
[2021-03-26] MEDS ORDERED: ALUMINUM/MAGNES/SIMETH MAX STR 30 ML UDCUP PO PRN (17:16)
[2021-03-26] MEDS ORDERED: PROMETHAZINE INJ 25 MG in SODIUM CHLORIDE 0.9% 50 ML IV PRN (17:16)
[2021-03-26] MEDS ORDERED: MYLANTA/LIDO VISC 2:1 300 ML BOTTLE SWISH/SWAL PRN (17:16)
[2021-03-26] MEDS ORDERED: BENZTROPINE 2 MG/2 ML AMP IV PRN (17:16)
[2021-03-26] MEDS ORDERED: MYLANTA/LIDO VISC 2:1 300 ML BOTTLE SWISH/SPIT PRN (17:16)
[2021-03-26] MEDS ORDERED: MAGNESIUM HYDROXIDE SUSP 30 ML UDCUP PO PRN (17:16)
[2021-03-26] MEDS ORDERED: chlorproMAZINE 25 MG TABLET PO PRN (17:16)
[2021-03-26] MEDS ORDERED: traMADol 50 MG TABLET PO PRN (17:16)
[2021-03-26] MEDS ORDERED: chlorproMAZINE INJ 50 MG in SODIUM CHLORIDE 0.9% 100 ML IV PRN (17:16)
[2021-03-26] MEDS ORDERED: chlorproMAZINE INJ 25 MG in SODIUM CHLORIDE 0.9% 100 ML IV PRN (17:16)
[2021-03-26] MEDS ORDERED: LACTULOSE 20 GM/30 ML UDCUP PO PRN (17:16)
[2021-03-26] MEDS ORDERED: ALPRAZolam 0.25 MG TABLET PO PRN (17:16)
[2021-03-26] MEDS ORDERED: SODIUM CHLORIDE 0.9% 1,000 ML IV PRN ×2 (17:18→17:28)
[2021-03-26 18:06] LABS: Hematocrit 18.4 VOL% (35.7-47.0); Immature Granulocytes % 6.6 %; Immature Granulocytes Absolute 0.26 #; Lymphocytes # 0.2 10*3/uL (1.4-4.0); Lymphocytes % 6.1 % (21.3-54.2); Mean Corpuscular HGB Conc 31.5 GM/DL (32-36); Neutrophils % 85.3 % (38.7-73.9); Red Blood Count 1.77 MC/CUMM (3.8-5.5); White Blood Count 3.9 T/CUMM (4-12)
[2021-03-26 18:09] LABS: Hemoglobin 5.8 GM/DL (12.0-16.0); Platelet Count 35 T/CUMM (130-400)
[2021-03-26 18:27] LABS: Uric Acid 7.9 MG/DL (2.6-6.0)
[2021-03-26] MEDS: SODIUM CHLORIDE 0.45% 1,000 ML IV SCH (18:41)
[2021-03-26 18:55] LABS: Hypochromasia 1+; Lymphocytes 5 % (20-55); Segmented Neutrophils 95 % (50-85); Total Cells Counted 100
[2021-03-26 18:56] LABS: Microcytosis 1+; Platelet Estimate Decreased; Toxic Granulation 1+
[2021-03-26] MEDS ORDERED: ONDANSETRON ODT 4 MG TABLET PO PRN (20:15)
[2021-03-26] MEDS ORDERED: diphenhydrAMINE CAP 25 MG CAPSULE PO ONE (20:17)
[2021-03-26] MEDS ORDERED: ACETAMINOPHEN 325 MG TABLET PO ONE (20:17)
[2021-03-26] MEDS: carvediloL 6.25 MG TABLET PO SCH (21:04)
[2021-03-26] MEDS: ASCORBIC ACID 500 MG TABLET PO SCH (21:05)
[2021-03-26] MEDS: cephALEXin 500 MG CAPSULE PO SCH (21:05)
[2021-03-26] MEDS: GABAPENTIN 300 MG CAPSULE PO SCH (21:05)
[2021-03-26] MEDS: ACYCLOVIR 200 MG CAPSULE PO SCH (21:06)
[2021-03-26] MEDS: MAGNESIUM CHLORIDE 64 MG TABLET PO SCH ×2 (21:06→22:24)
[2021-03-26] MEDS: allopurinoL 300 MG TABLET PO SCH (21:06)
[2021-03-26] MEDS: allopurinoL 100 MG TABLET PO SCH (21:06)
[2021-03-27] MEDS: ACETAMINOPHEN 325 MG TABLET PO PRN (05:07)
[2021-03-27 06:40] LABS: Albumin 2.5 G/DL (3.4-5.0); Bilirubin,Total 1.9 MG/DL (0.2-1.0); Calcium 9.5 MG/DL (8.5-10.1); Osmolality,Calculated 280.5 MOS/KG (273-304); Potassium 4.2 MMOL/L (3.5-5.1); Total Protein 6.5 G/DL (6.4-8.2)
[2021-03-27 06:49] LABS: Hematocrit 24.3 VOL% (35.7-47.0); Immature Granulocytes % 1.6 %; Immature Granulocytes Absolute 0.06 #; Lymphocytes # 0.5 10*3/uL (1.4-4.0); Lymphocytes % 12.9 % (21.3-54.2); Mean Corpuscular HGB Conc 33.3 GM/DL (32-36); Mean Corpuscular Volume 94.6 FL (87-102); Mean Platelet Volume 11.9 FL (9.6-12.0); Monocytes % 2.1 % (1.7-12.7); Neutrophils % 83.4 % (38.7-73.9); Red Cell Distribution Width 15.9 % (9.3-17.3); White Blood Count 3.8 T/CUMM (4-12)
[2021-03-27 06:52] LABS: Platelet Count 25 T/CUMM (130-400)
[2021-03-27 06:53] LABS: Hemoglobin 8.1 GM/DL (12.0-16.0); Red Blood Count 2.57 MC/CUMM (3.8-5.5)
[2021-03-27 07:01] LABS: Hypochromasia 1+; Lymphocytes 15 % (20-55); Microcytosis 1+; Platelet Estimate Decreased; Segmented Neutrophils 82 % (50-85); Total Cells Counted 100
[2021-03-27 07:02] LABS: Ovalocytes Slight
[2021-03-27] MEDS: MULTIVITAMIN (CENTRUM) TABLET PO SCH (08:59)
[2021-03-27] MEDS: cephALEXin 500 MG CAPSULE PO SCH ×2 (08:59→20:34)
[2021-03-27] MEDS: ASCORBIC ACID 500 MG TABLET PO SCH ×2 (08:59→20:34)
[2021-03-27] MEDS: GABAPENTIN 300 MG CAPSULE PO SCH ×2 (08:59→20:34)
[2021-03-27] MEDS: CALCIUM (CARBONATE)/VITAMIN D 600 MG-400 UNIT TABLET PO SCH (08:59)
[2021-03-27] MEDS: MAGNESIUM CHLORIDE 64 MG TABLET PO SCH ×2 (08:59→20:35)
[2021-03-27] MEDS: CETIRIZINE 10 MG TABLET PO SCH (08:59)
[2021-03-27] MEDS: PANTOPRAZOLE 40 MG TABLET PO SCH (08:59)
[2021-03-27] MEDS: carvediloL 6.25 MG TABLET PO SCH ×2 (08:59→20:34)
[2021-03-27] MEDS: FOLIC ACID 1 MG TABLET PO SCH (09:00)
[2021-03-27] MEDS: LACTULOSE 20 GM/30 ML UDCUP PO SCH (09:00)
[2021-03-27] MEDS: CYANOCOBALAMIN 500 MCG TABLET PO SCH (09:25)
[2021-03-27] MEDS: FLUTICASONE 50 MCG NASAL SPRAY 16 GM BOTTLE BOTH NARES SCH (09:25)
[2021-03-27] MEDS: BOSUTINIB 100 MG PO SCH (10:12)
[2021-03-27] MEDS ORDERED: SODIUM CHLORIDE 0.9% 1,000 ML IV PRN (11:40)
[2021-03-27 14:10] LABS: Bilirubin,Urine Negative (Negative); Blood, Urine Small mg/dL (Negative); Glucose,Urine (UA) Negative (Negative); Ketones,Urine Negative (Negative); Nitrite,Urine Negative (Negative); Protein,Urine Negative; RBC,Urine 1 /HPF (0-4); Squamous Epithelial Cell,Urine Occasional /HPF (0-10); Urine Appearance CLEAR (Clear); Urine Color Yellow (Yellow); Urine Specific Gravity 1.009 (1.001-1.035); Urine Urobilinogen < 2.0 EU/DL (0.2-1.0)
[2021-03-27] MEDS: allopurinoL 300 MG TABLET PO SCH (20:34)
[2021-03-27] MEDS: allopurinoL 100 MG TABLET PO SCH (20:34)
[2021-03-27] MEDS: ACYCLOVIR 200 MG CAPSULE PO SCH (20:34)
[2021-03-28] MEDS: ACETAMINOPHEN 325 MG TABLET PO PRN (00:38)
[2021-03-28] MEDS: SODIUM CHLORIDE 0.45% 1,000 ML IV SCH (05:00)
[2021-03-28 05:13] LABS: Basophils % 0.2 % (0.0-0.8); Hematocrit 22.9 VOL% (35.7-47.0); Hemoglobin 7.9 GM/DL (12.0-16.0); Immature Granulocytes % 1.1 %; Immature Granulocytes Absolute 0.09 #; Lymphocytes # 0.5 10*3/uL (1.4-4.0); Lymphocytes % 5.4 % (21.3-54.2); Mean Corpuscular HGB Conc 34.5 GM/DL (32-36); Mean Corpuscular Volume 93.1 FL (87-102); Mean Platelet Volume 10.7 FL (9.6-12.0); Monocytes % 2.9 % (1.7-12.7); Neutrophils % 90.4 % (38.7-73.9); Platelet Count 58 T/CUMM (130-400); Red Blood Count 2.46 MC/CUMM (3.8-5.5); Red Cell Distribution Width 16.2 % (9.3-17.3); White Blood Count 8.3 T/CUMM (4-12)
[2021-03-28 05:34] LABS: Hypochromasia 1+; Lymphocytes 4 % (20-55); Microcytosis 1+; Platelet Estimate Decreased; Segmented Neutrophils 90 % (50-85); Total Cells Counted 100
[2021-03-28 05:40] LABS: Albumin 2.5 G/DL (3.4-5.0); Bilirubin,Total 1.2 MG/DL (0.2-1.0); Calcium 9.1 MG/DL (8.5-10.1); Osmolality,Calculated 288.7 MOS/KG (273-304); Potassium 3.8 MMOL/L (3.5-5.1); Total Protein 6.4 G/DL (6.4-8.2)
[2021-03-28] MEDS ORDERED: DIAZEPAM 5 MG TABLET PO ONE (08:33)
[2021-03-28] MEDS: MAGNESIUM CHLORIDE 64 MG TABLET PO SCH ×2 (10:52→21:45)
[2021-03-28] MEDS: BOSUTINIB 100 MG PO SCH (10:52)
[2021-03-28] MEDS: CALCIUM (CARBONATE)/VITAMIN D 600 MG-400 UNIT TABLET PO SCH (10:53)
[2021-03-28] MEDS: MULTIVITAMIN (CENTRUM) TABLET PO SCH (10:53)
[2021-03-28] MEDS: carvediloL 6.25 MG TABLET PO SCH ×2 (10:54→21:45)
[2021-03-28] MEDS: FOLIC ACID 1 MG TABLET PO SCH (10:54)
[2021-03-28] MEDS: FLUTICASONE 50 MCG NASAL SPRAY 16 GM BOTTLE BOTH NARES SCH (10:54)
[2021-03-28] MEDS: LACTULOSE 20 GM/30 ML UDCUP PO SCH (10:54)
[2021-03-28] MEDS: ASCORBIC ACID 500 MG TABLET PO SCH ×2 (10:55→20:57)
[2021-03-28] MEDS: cephALEXin 500 MG CAPSULE PO SCH ×2 (10:55→20:57)
[2021-03-28] MEDS: GABAPENTIN 300 MG CAPSULE PO SCH ×2 (10:55→20:57)
[2021-03-28] MEDS: CYANOCOBALAMIN 500 MCG TABLET PO SCH (10:55)
[2021-03-28] MEDS: PANTOPRAZOLE 40 MG TABLET PO SCH (10:55)
[2021-03-28] MEDS: CETIRIZINE 10 MG TABLET PO SCH (10:56)
[2021-03-28] MEDS: ONDANSETRON 4 MG/2 ML VIAL IV PRN (15:36)
[2021-03-28] MEDS: allopurinoL 100 MG TABLET PO SCH (20:57)
[2021-03-28] MEDS: ACYCLOVIR 200 MG CAPSULE PO SCH (20:57)
[2021-03-28] MEDS: allopurinoL 300 MG TABLET PO SCH (20:57)
[2021-03-29] MEDS: ACETAMINOPHEN 325 MG TABLET PO PRN ×2 (05:13→19:58)
[2021-03-29] MEDS: MEROPENEM 500 MG in SODIUM CHLORIDE 0.9% 100 ML IV SCH ×3 (05:13→22:02)
[2021-03-29 06:34] LABS: Basophils % 0.2 % (0.0-0.8); Eosinophils % 0.1 % (0.00-10.9); Hematocrit 20.8 VOL% (35.7-47.0); Immature Granulocytes Absolute 0.09 #; Lymphocytes # 0.6 10*3/uL (1.4-4.0); Lymphocytes % 6.8 % (21.3-54.2); Mean Corpuscular HGB Conc 33.7 GM/DL (32-36); Mean Corpuscular Volume 96.3 FL (87-102); Mean Platelet Volume 11.2 FL (9.6-12.0); Monocytes % 6.8 % (1.7-12.7); Neutrophils % 85.1 % (38.7-73.9); Platelet Count 41 T/CUMM (130-400); Red Blood Count 2.16 MC/CUMM (3.8-5.5); Red Cell Distribution Width 15.9 % (9.3-17.3); White Blood Count 9.4 T/CUMM (4-12)
[2021-03-29 06:52] LABS: Hypochromasia 1+; Platelet Estimate Decreased
[2021-03-29 07:03] LABS: Albumin 2.2 G/DL (3.4-5.0); Bilirubin,Total 0.8 MG/DL (0.2-1.0); Calcium 8.8 MG/DL (8.5-10.1); Potassium 3.8 MMOL/L (3.5-5.1); Total Protein 5.9 G/DL (6.4-8.2)
[2021-03-29] MEDS: SODIUM CHLORIDE 0.45% 1,000 ML IV SCH (07:48)
[2021-03-29] MEDS: BOSUTINIB 100 MG PO SCH (08:52)
[2021-03-29] MEDS: MAGNESIUM CHLORIDE 64 MG TABLET PO SCH (08:52)
[2021-03-29] MEDS ORDERED: SODIUM CHLORIDE 0.9% 1,000 ML IV PRN (09:12)
[2021-03-29] MEDS: FOLIC ACID 1 MG TABLET PO SCH (09:16)
[2021-03-29] MEDS: MULTIVITAMIN (CENTRUM) TABLET PO SCH (09:16)
[2021-03-29] MEDS: LACTULOSE 20 GM/30 ML UDCUP PO SCH (09:16)
[2021-03-29] MEDS: CALCIUM (CARBONATE)/VITAMIN D 600 MG-400 UNIT TABLET PO SCH (09:16)
[2021-03-29] MEDS: CYANOCOBALAMIN 500 MCG TABLET PO SCH (09:16)
[2021-03-29] MEDS: ASCORBIC ACID 500 MG TABLET PO SCH (09:16)
[2021-03-29] MEDS: GABAPENTIN 300 MG CAPSULE PO SCH ×2 (09:16→22:08)
[2021-03-29] MEDS: cephALEXin 500 MG CAPSULE PO SCH (09:16)
[2021-03-29] MEDS: PANTOPRAZOLE 40 MG TABLET PO SCH (09:16)
[2021-03-29] MEDS: CETIRIZINE 10 MG TABLET PO SCH (09:18)
[2021-03-29] MEDS: FLUTICASONE 50 MCG NASAL SPRAY 16 GM BOTTLE BOTH NARES SCH (10:49)
[2021-03-29] MEDS: carvediloL 6.25 MG TABLET PO SCH (10:49)
[2021-03-29] MEDS ORDERED: LIDOCAINE 5% PATCH TRANSDERM SCH (16:00)
[2021-03-29] MEDS ORDERED: LIDOCAINE 5% PATCH TRANSDERM PRN (16:38)
[2021-03-29] MEDS: ACYCLOVIR 200 MG CAPSULE PO SCH (22:07)
[2021-03-29] MEDS: allopurinoL 100 MG TABLET PO SCH (22:08)
[2021-03-29] MEDS: allopurinoL 300 MG TABLET PO SCH (22:08)
[2021-03-30] MEDS: MEROPENEM 500 MG in SODIUM CHLORIDE 0.9% 100 ML IV SCH ×3 (05:05→21:12)
[2021-03-30] MEDS: ACETAMINOPHEN 325 MG TABLET PO PRN ×2 (05:08→12:12)
[2021-03-30 05:35] LABS: Basophils % 0.1 % (0.0-0.8); Eosinophils % 0.3 % (0.00-10.9); Hematocrit 29.8 VOL% (35.7-47.0); Immature Granulocytes % 0.8 %; Immature Granulocytes Absolute 0.07 #; Lymphocytes # 0.5 10*3/uL (1.4-4.0); Lymphocytes % 5.4 % (21.3-54.2); Mean Corpuscular HGB Conc 32.9 GM/DL (32-36); Mean Corpuscular Volume 93.7 FL (87-102); Mean Platelet Volume 11.9 FL (9.6-12.0); Monocytes % 15.6 % (1.7-12.7); Neutrophils % 77.8 % (38.7-73.9); White Blood Count 9.1 T/CUMM (4-12)
[2021-03-30 05:43] LABS: Hemoglobin 9.8 GM/DL (12.0-16.0); Red Blood Count 3.18 MC/CUMM (3.8-5.5)
[2021-03-30 05:45] LABS: Platelet Count 33 T/CUMM (130-400)
[2021-03-30 06:01] LABS: Albumin 2.1 G/DL (3.4-5.0); Bilirubin,Total 1.3 MG/DL (0.2-1.0); Calcium 8.9 MG/DL (8.5-10.1); Osmolality,Calculated 286.5 MOS/KG (273-304); Potassium 3.8 MMOL/L (3.5-5.1); Total Protein 6.2 G/DL (6.4-8.2)
[2021-03-30 06:39] LABS: Atypical Lymphocytes Few; Lymphocytes 8 % (20-55); Macrocytosis Slight; Platelet Estimate Decreased; Polychromasia Slight; Segmented Neutrophils 70 % (50-85); Total Cells Counted 100
[2021-03-30] MEDS: CETIRIZINE 10 MG TABLET PO SCH (08:18)
[2021-03-30] MEDS: GABAPENTIN 300 MG CAPSULE PO SCH ×2 (08:18→21:15)
[2021-03-30] MEDS: PANTOPRAZOLE 40 MG TABLET PO SCH (08:18)
[2021-03-30] MEDS: LACTULOSE 20 GM/30 ML UDCUP PO SCH (08:18)
[2021-03-30] MEDS: carvediloL 6.25 MG TABLET PO SCH (08:18)
[2021-03-30] MEDS: FOLIC ACID 1 MG TABLET PO SCH (08:18)
[2021-03-30] MEDS: ACYCLOVIR 200 MG CAPSULE PO SCH (21:15)
[2021-03-30] MEDS: allopurinoL 100 MG TABLET PO SCH (21:15)
[2021-03-30] MEDS: allopurinoL 300 MG TABLET PO SCH (21:15)
[2021-03-31] MEDS: ACETAMINOPHEN 325 MG TABLET PO PRN (00:32)
[2021-03-31] MEDS: MEROPENEM 500 MG in SODIUM CHLORIDE 0.9% 100 ML IV SCH ×3 (05:18→21:22)
[2021-03-31 05:56] LABS: Basophils % 0.1 % (0.0-0.8); Eosinophils % 0.3 % (0.00-10.9); Hematocrit 29.8 VOL% (35.7-47.0); Hemoglobin 9.8 GM/DL (12.0-16.0); Immature Granulocytes % 0.7 %; Immature Granulocytes Absolute 0.05 #; Lymphocytes # 0.7 10*3/uL (1.4-4.0); Lymphocytes % 9.7 % (21.3-54.2); Mean Corpuscular HGB Conc 32.9 GM/DL (32-36); Mean Corpuscular Volume 93.4 FL (87-102); Mean Platelet Volume 12.3 FL (9.6-12.0); Monocytes % 21.6 % (1.7-12.7); Neutrophils % 67.6 % (38.7-73.9); Red Blood Count 3.19 MC/CUMM (3.8-5.5); Red Cell Distribution Width 16.4 % (9.3-17.3); White Blood Count 7.6 T/CUMM (4-12)
[2021-03-31 06:05] LABS: Platelet Count 37 T/CUMM (130-400)
[2021-03-31 06:19] LABS: Albumin 2.1 G/DL (3.4-5.0); Bilirubin,Total 0.5 MG/DL (0.2-1.0); Calcium 8.9 MG/DL (8.5-10.1); Osmolality,Calculated 280.8 MOS/KG (273-304); Potassium 3.9 MMOL/L (3.5-5.1)
[2021-03-31 07:00] LABS: Anisocytosis 1+; Lymphocytes 5 % (20-55); Segmented Neutrophils 79 % (50-85); Total Cells Counted 100
[2021-03-31 07:01] LABS: Microcytosis Slight; Platelet Estimate Decreased
[2021-03-31] MEDS: LACTULOSE 20 GM/30 ML UDCUP PO SCH (08:16)
[2021-03-31] MEDS: carvediloL 6.25 MG TABLET PO SCH (08:16)
[2021-03-31] MEDS: CETIRIZINE 10 MG TABLET PO SCH (08:40)
[2021-03-31] MEDS: FOLIC ACID 1 MG TABLET PO SCH (08:40)
[2021-03-31] MEDS: PANTOPRAZOLE 40 MG TABLET PO SCH (08:41)
[2021-03-31] MEDS: GABAPENTIN 300 MG CAPSULE PO SCH ×2 (08:41→21:22)
[2021-03-31] MEDS: ACYCLOVIR 200 MG CAPSULE PO SCH (21:22)
[2021-03-31] MEDS: allopurinoL 300 MG TABLET PO SCH (21:22)
[2021-03-31] MEDS: allopurinoL 100 MG TABLET PO SCH (21:23)
[2021-04-01] MEDS: ACETAMINOPHEN 325 MG TABLET PO PRN (01:04)
[2021-04-01] MEDS: ONDANSETRON 4 MG/2 ML VIAL IV PRN ×2 (02:10→09:44)
[2021-04-01] MEDS: MEROPENEM 500 MG in SODIUM CHLORIDE 0.9% 100 ML IV SCH (04:57)
[2021-04-01 05:47] LABS: Basophils % 0.3 % (0.0-0.8); Eosinophils % 0.3 % (0.00-10.9); Hemoglobin 9.6 GM/DL (12.0-16.0); Immature Granulocytes % 0.7 %; Immature Granulocytes Absolute 0.05 #; Lymphocytes # 0.8 10*3/uL (1.4-4.0); Lymphocytes % 10.6 % (21.3-54.2); Mean Corpuscular HGB Conc 33.1 GM/DL (32-36); Mean Corpuscular Volume 94.5 FL (87-102); Mean Platelet Volume 12.6 FL (9.6-12.0); Monocytes % 29.9 % (1.7-12.7); Neutrophils % 58.2 % (38.7-73.9); Red Blood Count 3.07 MC/CUMM (3.8-5.5); Red Cell Distribution Width 15.8 % (9.3-17.3); White Blood Count 7.1 T/CUMM (4-12)
[2021-04-01 06:15] LABS: Albumin 1.9 G/DL (3.4-5.0); Bilirubin,Total 0.8 MG/DL (0.2-1.0); Osmolality,Calculated 283.7 MOS/KG (273-304); Platelet Count 57 T/CUMM (130-400); Potassium 3.9 MMOL/L (3.5-5.1)
[2021-04-01 06:17] LABS: Lymphocytes 11 % (20-55); Platelet Estimate Decreased; Segmented Neutrophils 63 % (50-85); Total Cells Counted 100
[2021-04-01 06:18] LABS: Hypochromasia 1+; Microcytosis 1+
[2021-04-01] MEDS: carvediloL 6.25 MG TABLET PO SCH (09:12)
[2021-04-01] MEDS: LACTULOSE 20 GM/30 ML UDCUP PO SCH (09:44)
[2021-04-01] MEDS: GABAPENTIN 300 MG CAPSULE PO SCH (09:45)
[2021-04-01] MEDS: PANTOPRAZOLE 40 MG TABLET PO SCH (09:45)
[2021-04-01] MEDS: CETIRIZINE 10 MG TABLET PO SCH (09:45)
[2021-04-01] MEDS: FOLIC ACID 1 MG TABLET PO SCH (09:45)
[2021-04-01 12:18] VITALS: BP 116/59
== END 2021-04-01 14:30 | disposition home health service (06) | DRG 835 ==
LOC: N.4E 16:17
PROVIDERS: ADMIT Specialist; ATTEND Specialist